=== PATIENT | female | born 1970 | race Caucasian/White ===

== ENCOUNTER 2017-03-31 09:38 | Inpatient (IN) ==
--- NOTE | 2017-03-31 09:47 | Emergency Department Note ---
Disposition Clinical Impression: UTI (urinary tract infection) Disposition: Admitted As Inpatient General Adult HPI - General Chief complaint: ED Urogenital-Female Stated complaint: UTI Time Seen by Provider: 03/31/17 09:44 Source: patient Limitations: no limitations - History of Present Illness Pain Scale: 6 - Related Data Home Medications Medication Instructions Recorded Confirmed Albuterol Sulfate [Albuterol 2 puff IH Q4HR PRN 06/11/16 03/31/17 Inhaler] Allopurinol [Zyloprim 100 MG] 100 mg PO DAILY 06/11/16 03/31/17 Aspirin 325 mg PO DAILY 06/11/16 03/31/17 Atorvastatin Calcium [Lipitor] 80 mg PO DAILY 06/11/16 03/31/17 Calcium Carbonate/Vitamin D3 1 tab PO BID 06/11/16 03/31/17 [Calcium 600 + Vit D Tablet] Ergocalciferol (VITAMIN D2) 50,000 unit PO TH 06/11/16 03/31/17 [Vitamin D2] Ferrous Sulfate [Iron] 325 mg PO DAILY 06/11/16 03/31/17 Furosemide [Lasix] 40 mg PO DAILY 06/11/16 03/31/17 Losartan Potassium [Cozaar] 25 mg PO BID 06/11/16 03/31/17 Metoprolol [Lopressor] 50 mg PO BID 06/11/16 03/31/17 Mycophenolate Sodium [Myfortic] 360 mg PO BID 06/11/16 03/31/17 Omeprazole [PriLOSEC] 40 mg PO BID 06/11/16 03/31/17 Ondansetron HCl [Zofran] 4 mg PO Q8H PRN 06/11/16 03/31/17 Potassium Chloride [K-Tab ER] 40 meq PO TID 06/11/16 03/31/17 Promethazine [Phenergan] 25 mg PO Q6HR PRN 06/11/16 03/31/17 metOLazone [Zaroxolyn] 2.5 mg PO DAILY PRN 06/11/16 03/31/17 Sulfamethoxazole/Trimeth DS 1 each PO MOWEFR 11/02/16 03/31/17 [Bactrim Ds] predniSONE [PredniSONE] 10 mg PO DAILY 11/02/16 03/31/17 Belatacept [Nulojix] 250 mg IV QMONTH 03/31/17 03/31/17 Docusate [Colace] 300 mg PO HS 03/31/17 03/31/17 Spironolactone [Aldactone] 25 mg PO DAILY 03/31/17 03/31/17 Previous Rx's Medication Instructions Recorded OxyCODONE Immed Rel [Roxicodone 5 5 mg PO Q6HR PRN #30 tablet 11/02/16 MG] Allergies Allergy/AdvReac Type Severity Reaction Status Date / Time adhesive Allergy Rash Verified 11/02/16 14:22 clopidogrel [From Plavix] Allergy Rash Verified 11/02/16 14:22 Iodinated Contrast- Oral and Allergy Rash,Hives Verified 11/02/16 14:22 IV Dye Penicillins Allergy Rash Verified 11/02/16 14:22 plasma protein fraction Allergy Swelling Verified 11/02/16 14:22 of Lip/Tongue/Throat chloraprep Allergy Hives Uncoded 11/02/16 14:22 Past Medical History - Past Medical History Medical history: Reports: GERD, hyperlipidemia, hypertension, renal disease Surgical history: Reports: cholecystectomy, orthopedic, other, other Psychiatric history: Reports: no psych history - Social History Smoking Status: Never smoker Smokeless Tobacco Status: No Alcohol use: Reports: none Drug use: Reports: none Physical Exam - General Limitations: no limitations General appearance: alert, in no apparent distress Course Vital Signs Temperature 98.9 F 03/31/17 09:39 Pulse Rate 80 03/31/17 09:39 Respiratory Rate 18 03/31/17 09:39 Blood Pressure 130/88 03/31/17 09:39 O2 Sat by Pulse Oximetry 96 03/31/17 09:39 Temperature 98.3 F 04/01/17 06:44 Pulse Rate 65 04/01/17 06:44 Respiratory Rate 14 04/01/17 06:44 Blood Pressure 139/87 04/01/17 06:44 O2 Sat by Pulse Oximetry 97 04/01/17 06:44 Oxygen Delivery Oxygen Delivery Room Air Medical Decision Making - Lab Data Result diagrams: 04/01/17 04:30 04/01/17 04:30 Lab Results 03/31/17 03/31/17 03/31/17 Range/Units 09:50 09:50 10:24 WBC 8.1 (4.3-11.1) K/mcL RBC 4.18 (3.82-4.97) M/mcL Hgb 11.9 (11.5-15.4) g/dL Hct 36.2 (35.3-44.9) % MCV 86.6 (83.0-100.0) fL MCH 28.5 (28.0-33.3) pg MCHC 32.9 (31.6-35.5) g/dL RDW 15.2 H (11.5-14.5) % Plt Count 168 (140-400) K/mcL MPV 11.2 (9.4-12.4) fL Immature Gran % 0.7 (0-4) % Seg Neutrophils % 80.5 % Lymphocytes % 8.9 % Monocytes % 8.6 % Eosinophils % 1.1 % Basophils % 0.2 % Neutrophils # 6.5 (1.6-8.9) K/mcL Lymphocytes # 0.7 (0.6-4.6) K/mcL Monocytes # 0.7 (0.0-1.3) K/mcL Eosinophils # 0.1 (0.0-0.6) K/mcL Basophils # 0.0 (0.0-0.2) K/mcL Immature Plt Fraction 4.2 (1.1-6.1) % Sodium (136-145) mEq/L Potassium (3.5-4.5) mEq/L Chloride (98-109) mEq/L Carbon Dioxide (19-29) mEq/L BUN (7-20) mg/dL Creatinine (0.57-1.11) mg/dL Est GFR ( Amer) (> 60) Est GFR (Non-Af Amer) (> 60) BUN/Creatinine Ratio (6-26) Glucose (70-99) mg/dL Calculated Osmolality (280-300) Calcium (8.6-10.8) mg/dL Urine Color Yellow (Yellow) Urine Clarity Turbid A (Clear) Urine pH 6.0 (5.0-8.0) pH Units Ur Specific [place] 1.014 (1.010-1.025) Urine Protein >=300 H (Neg-Trace) mg/dL Urine Glucose (UA) Normal (Normal) mg/dL Urine Ketones Negative (Negative) mg/dL Urine Blood Moderate H (Negative) Urine Nitrite Negative (Negative) Urine Bilirubin Negative (Negative) Urine Urobilinogen Normal (Normal) mg/dL Ur Leukocyte Esterase Large H (Negative) Urine Microscopic RBC 15-30 H (0-3) per hpf Urine Microscopic WBC TNTC H (0-3) per hpf Ur Squamous Epith Cells Moderate H (None-Few) per lpf Urine Bacteria Many H (None-Few) per hpf Hyaline Casts None Seen (None-Few) per lpf Ur Culture Indicated? YES A (NO) Urine Test Negative (Negative) 03/31/17 Range/Units 10:24 WBC (4.3-11.1) K/mcL RBC (3.82-4.97) M/mcL Hgb (11.5-15.4) g/dL Hct (35.3-44.9) % MCV (83.0-100.0) fL MCH (28.0-33.3) pg MCHC (31.6-35.5) g/dL RDW (11.5-14.5) % Plt Count (140-400) K/mcL MPV (9.4-12.4) fL Immature Gran % (0-4) % Seg Neutrophils % % Lymphocytes % % Monocytes % % Eosinophils % % Basophils % % Neutrophils # (1.6-8.9) K/mcL Lymphocytes # (0.6-4.6) K/mcL Monocytes # (0.0-1.3) K/mcL Eosinophils # (0.0-0.6) K/mcL Basophils # (0.0-0.2) K/mcL Immature Plt Fraction (1.1-6.1) % Sodium 140 (136-145) mEq/L Potassium 4.0 (3.5-4.5) mEq/L Chloride 110 H (98-109) mEq/L Carbon Dioxide 19 (19-29) mEq/L BUN 37 H (7-20) mg/dL Creatinine 2.45 H (0.57-1.11) mg/dL Est GFR ( Amer) 26 L (> 60) Est GFR (Non-Af Amer) 21 L (> 60) BUN/Creatinine Ratio 15 (6-26) Glucose 98 (70-99) mg/dL Calculated Osmolality 299 (280-300) Calcium 8.7 (8.6-10.8) mg/dL Urine Color (Yellow) Urine Clarity (Clear) Urine pH (5.0-8.0) pH Units Ur Specific [place] (1.010-1.025) Urine Protein (Neg-Trace) mg/dL Urine Glucose (UA) (Normal) mg/dL Urine Ketones (Negative) mg/dL Urine Blood (Negative) Urine Nitrite (Negative) Urine Bilirubin (Negative) Urine Urobilinogen (Normal) mg/dL Ur Leukocyte Esterase (Negative) Urine Microscopic RBC (0-3) per hpf Urine Microscopic WBC (0-3) per hpf Ur Squamous Epith Cells (None-Few) per lpf Urine Bacteria (None-Few) per hpf Hyaline Casts (None-Few) per lpf Ur Culture Indicated? (NO) Urine Test (Negative) Attestation Statement - Attestation Attestation: I examined this patient and my medical decision-making was reviewed with the FO[employer]IECE [employer]SEMBLER/PA/Advanced Practice Nurse/Resident Physician. I agree with the documented findings, disposition and treatment plan as described except to the extent set forth below. [id number] time provided Patient complains of urinary symptoms but appears in no acute distress on exam. Triage vitals reviewed by me. The patient has a remote history of kidney transplant
[2017-03-31 10:02] LABS: Bilirubin,Urine Negative (Negative); Blood,Urine Moderate (Negative); Clarity,Urine Turbid (Clear); Color,Urine Yellow (Yellow); Glucose,Urine (UA) Normal (Normal); Ketones,Urine Negative (Negative); Leukocyte Esterase,Urine Large (Negative); Nitrite,Urine Negative (Negative); Protein,Urine >=300 mg/dL (Neg-Trace); Specific Gravity,Urine 1.014 (1.010-1.025); Urobilinogen,Urine Normal (Normal)
[2017-03-31 10:05] LABS: Bacteria,Urine Many per hpf (None-Few); Hyaline Casts,Urine None Seen per lpf (None-Few); RBC,Urine 15-30 per hpf (0-3); Squamous Epithelial Cell,Urine Moderate per lpf (None-Few); WBC,Urine TNTC per hpf (0-3)
[2017-03-31] MEDS ORDERED: cefOXitin 2,000 MG in D5% in Water (Mini-Bag+) 100 ML IVPB ONE (10:16)
--- NOTE | 2017-03-31 10:24 | Emergency Department Note ---
Disposition Clinical Impression: UTI (urinary tract infection) Qualifiers: Urinary tract infection type: site unspecified Hematuria presence: with hematuria Qualified Code(s): N39.0 - Urinary tract infection, site not specified ; R31.9 - Hematuria, unspecified Disposition: Admitted As Inpatient Referrals: Lindsey Cazares MD [Primary Care Provider] - Forms: ED Satisfaction Letter Female Urogenital HPI - General Chief complaint: ED Urogenital-Female Stated complaint: UTI Time Seen by Provider: 03/31/17 09:44 Source: patient Limitations: no limitations Nursing Notes Reviewed: Yes Vital Signs Reviewed: Yes - History of Present Illness HPI Narrative: Patient here for evaluation and treatment of urinary tract infection. Patient is transferring a patient of Dr. Jackson at [facility] in 2012. Patient has had burning with urination since Sunday. No treatment until this point. Culture of ESBL with sensitivity to cefoxitin and Macrobid. Patient unable to take Macrobid outpatient as she has failed this multiple times. Patient needs cefoxitin therapy and is unable to get this set up as outpatient as this time. Pt does not have port and will need one at the time of discharge. - Related Data Home Medications Medication Instructions Recorded Confirmed Albuterol Sulfate [Albuterol 2 puff IH Q4HR PRN 06/11/16 11/02/16 Inhaler] Allopurinol [Zyloprim 100 MG] 100 mg PO DAILY 06/11/16 11/02/16 Aspirin 325 mg PO DAILY 06/11/16 11/02/16 Atorvastatin Calcium [Lipitor] 80 mg PO DAILY 06/11/16 11/02/16 Calcium Carbonate/Vitamin D3 1 each PO BID 06/11/16 11/02/16 [Calcium 600 + Vit D Tablet] Ergocalciferol (VITAMIN D2) 50,000 unit PO TH 06/11/16 11/02/16 [Vitamin D2] Ferrous Sulfate [Iron] 325 mg PO DAILY 06/11/16 11/02/16 Furosemide [Lasix] 40 mg PO DAILY 06/11/16 11/02/16 Losartan Potassium [Cozaar] 50 mg PO BID 06/11/16 11/02/16 Metoprolol [Lopressor] 37.5 mg PO BID 06/11/16 11/02/16 Mycophenolate Sodium [Myfortic] 360 mg PO BID 06/11/16 11/02/16 Omeprazole [PriLOSEC] 40 mg PO BID 06/11/16 11/02/16 Ondansetron HCl [Zofran] 4 mg PO Q8H PRN 06/11/16 11/02/16 Potassium Chloride [K-Tab ER] 40 meq PO TID 06/11/16 11/02/16 Promethazine [Phenergan] 25 mg PO Q6HR PRN 06/11/16 11/02/16 metOLazone [Zaroxolyn] 2.5 mg PO DAILY PRN 06/11/16 11/02/16 Aspirin 81 mg PO DAILY 11/02/16 11/02/16 Sulfamethoxazole/Trimeth DS 1 each PO MOWEFR 11/02/16 11/02/16 [Bactrim Ds] predniSONE [PredniSONE] 10 mg PO DAILY 11/02/16 11/02/16 Previous Rx's Medication Instructions Recorded Clindamycin [Cleocin] 150 mg PO Q6HR #8 capsule 11/02/16 OxyCODONE Immed Rel [Roxicodone 5 5 mg PO Q6HR PRN #30 tablet 11/02/16 MG] Allergies Allergy/AdvReac Type Severity Reaction Status Date / Time adhesive Allergy Rash Verified 11/02/16 14:22 clopidogrel [From Plavix] Allergy Rash Verified 11/02/16 14:22 Iodinated Contrast- Oral and Allergy Rash,Hives Verified 11/02/16 14:22 IV Dye Penicillins Allergy Rash Verified 11/02/16 14:22 plasma protein fraction Allergy Swelling Verified 11/02/16 14:22 of Lip/Tongue/Throat chloraprep Allergy Hives Uncoded 11/02/16 14:22 Review of Systems: CONSTITUTIONAL: No weight loss, fever, chills, weakness or fatigue. HEENT: Eyes: No visual changes. Ears, Nose, Throat: No hearing loss, difficulty talking or unable to swallow. SKIN: No rash or itching. CARDIOVASCULAR: No chest pain, chest pressure or chest discomfort. No palpitations or edema. RESPIRATORY: No shortness of breath, cough or sputum. GASTROINTESTINAL: No anorexia, nausea, vomiting or diarrhea. No abdominal pain or blood. GENITOURINARY: Burning with urination NEUROLOGICAL: No headache, dizziness, syncope, paralysis, ataxia, numbness or tingling in the extremities. No change in bowel or bladder control. MUSCULOSKELETAL: No muscle pain, back pain, joint pain or stiffness. Past Medical History - Past Medical History Medical history: Reports: GERD, hyperlipidemia, hypertension, renal disease Surgical history: Reports: cholecystectomy, orthopedic, other, other Psychiatric history: Reports: no psych history - Social History Smoking Status: Never smoker Smokeless Tobacco Status: No Alcohol use: Reports: none Drug use: Reports: none Physical Exam General appearance: NAD, conversant Eyes: anicteric sclerae, moist conjunctivae; PERRL HENT: Atraumatic; oropharynx clear with moist mucous membranes and no mucosal ulcerations Neck: Normal inspection; Trachea midline; FROM, supple Lungs: CTA, with normal respiratory effort and no intercostal retractions CV: RRR, no MRGs Abdomen: Soft, non-tender; no rebound or gaurding Extremities: No peripheral edema or extremity lymphadenopathy Skin: Normal temperature; no rash, ulcers or lesions Psych: Appropriate mood and affect Neuro: alert and oriented to person, place and time - General Limitations: no limitations General appearance: alert, in no apparent distress Course - Consultations Consultation #1: Discussed with Dr. Mccann. They called and said that she will need IV antibiotics. He does not have these faxed documents this time. States that he is more than comfortable keeping this patient Suni for these antibiotics she would otherwise have had this set up as an outpatient if it was feasible. Patient has failed Macrobid therapy in the past. Patient is supposed to get Invanz per transplant team. Transplant team is comfortable with her being treated at our facility. Dr. Mccann is comfortable taking care of her at this time. Hospitalist admission with consult. Vital Signs Temperature 98.9 F 03/31/17 09:39 Pulse Rate 80 03/31/17 09:39 Respiratory Rate 18 03/31/17 09:39 Blood Pressure 130/88 03/31/17 09:39 O2 Sat by Pulse Oximetry 96 03/31/17 09:39 Temperature 98.9 F 03/31/17 09:39 Pulse Rate 82 03/31/17 10:33 Respiratory Rate 16 03/31/17 10:33 Blood Pressure 110/68 03/31/17 10:33 O2 Sat by Pulse Oximetry 97 03/31/17 10:33 Oxygen Delivery Oxygen Delivery Room Air Urogenital-Female - Lab Data Result diagrams: 03/31/17 10:24 03/31/17 10:24 Lab Results 03/31/17 03/31/17 03/31/17 Range/Units 09:50 09:50 10:24 WBC 8.1 (4.3-11.1) K/mcL RBC 4.18 (3.82-4.97) M/mcL Hgb 11.9 (11.5-15.4) g/dL Hct 36.2 (35.3-44.9) % MCV 86.6 (83.0-100.0) fL MCH 28.5 (28.0-33.3) pg MCHC 32.9 (31.6-35.5) g/dL RDW 15.2 H (11.5-14.5) % Plt Count 168 (140-400) K/mcL MPV 11.2 (9.4-12.4) fL Immature Gran % 0.7 (0-4) % Seg Neutrophils % 80.5 % Lymphocytes % 8.9 % Monocytes % 8.6 % Eosinophils % 1.1 % Basophils % 0.2 % Neutrophils # 6.5 (1.6-8.9) K/mcL Lymphocytes # 0.7 (0.6-4.6) K/mcL Monocytes # 0.7 (0.0-1.3) K/mcL Eosinophils # 0.1 (0.0-0.6) K/mcL Basophils # 0.0 (0.0-0.2) K/mcL Immature Plt Fraction 4.2 (1.1-6.1) % Sodium (136-145) mEq/L Potassium (3.5-4.5) mEq/L Chloride (98-109) mEq/L Carbon Dioxide (19-29) mEq/L BUN (7-20) mg/dL Creatinine (0.57-1.11) mg/dL Est GFR ( Amer) (> 60) Est GFR (Non-Af Amer) (> 60) BUN/Creatinine Ratio (6-26) Glucose (70-99) mg/dL Calculated Osmolality (280-300) Calcium (8.6-10.8) mg/dL Urine Color Yellow (Yellow) Urine Clarity Turbid A (Clear) Urine pH 6.0 (5.0-8.0) pH Units Ur Specific [place] 1.014 (1.010-1.025) Urine Protein >=300 H (Neg-Trace) mg/dL Urine Glucose (UA) Normal (Normal) mg/dL Urine Ketones Negative (Negative) mg/dL Urine Blood Moderate H (Negative) Urine Nitrite Negative (Negative) Urine Bilirubin Negative (Negative) Urine Urobilinogen Normal (Normal) mg/dL Ur Leukocyte Esterase Large H (Negative) Urine Microscopic RBC 15-30 H (0-3) per hpf Urine Microscopic WBC TNTC H (0-3) per hpf Ur Squamous Epith Cells Moderate H (None-Few) per lpf Urine Bacteria Many H (None-Few) per hpf Hyaline Casts None Seen (None-Few) per lpf Ur Culture Indicated? YES A (NO) Urine Test Negative (Negative) 03/31/17 Range/Units 10:24 WBC (4.3-11.1) K/mcL RBC (3.82-4.97) M/mcL Hgb (11.5-15.4) g/dL Hct (35.3-44.9) % MCV (83.0-100.0) fL MCH (28.0-33.3) pg MCHC (31.6-35.5) g/dL RDW (11.5-14.5) % Plt Count (140-400) K/mcL MPV (9.4-12.4) fL Immature Gran % (0-4) % Seg Neutrophils % % Lymphocytes % % Monocytes % % Eosinophils % % Basophils % % Neutrophils # (1.6-8.9) K/mcL Lymphocytes # (0.6-4.6) K/mcL Monocytes # (0.0-1.3) K/mcL Eosinophils # (0.0-0.6) K/mcL Basophils # (0.0-0.2) K/mcL Immature Plt Fraction (1.1-6.1) % Sodium 140 (136-145) mEq/L Potassium 4.0 (3.5-4.5) mEq/L Chloride 110 H (98-109) mEq/L Carbon Dioxide 19 (19-29) mEq/L BUN 37 H (7-20) mg/dL Creatinine 2.45 H (0.57-1.11) mg/dL Est GFR ( Amer) 26 L (> 60) Est GFR (Non-Af Amer) 21 L (> 60) BUN/Creatinine Ratio 15 (6-26) Glucose 98 (70-99) mg/dL Calculated Osmolality 299 (280-300) Calcium 8.7 (8.6-10.8) mg/dL Urine Color (Yellow) Urine Clarity (Clear) Urine pH (5.0-8.0) pH Units Ur Specific [place] (1.010-1.025) Urine Protein (Neg-Trace) mg/dL Urine Glucose (UA) (Normal) mg/dL Urine Ketones (Negative) mg/dL Urine Blood (Negative) Urine Nitrite (Negative) Urine Bilirubin (Negative) Urine Urobilinogen (Normal) mg/dL Ur Leukocyte Esterase (Negative) Urine Microscopic RBC (0-3) per hpf Urine Microscopic WBC (0-3) per hpf Ur Squamous Epith Cells (None-Few) per lpf Urine Bacteria (None-Few) per hpf Hyaline Casts (None-Few) per lpf Ur Culture Indicated? (NO) Urine Test (Negative)
[2017-03-31 10:30] LABS: Basophils % 0.2 %; Eosinophils # 0.1 K/mcL (0.0-0.6); Eosinophils % 1.1 %; Hematocrit 36.2 % (35.3-44.9); Hemoglobin 11.9 g/dL (11.5-15.4); Immature Granulocytes % 0.7 % (0-4); Immature Platelets 4.2 % (1.1-6.1); Lymphocytes # 0.7 K/mcL (0.6-4.6); Lymphocytes % 8.9 %; Mean Corpuscular HGB Conc 32.9 g/dL (31.6-35.5); Mean Corpuscular Hemoglobin 28.5 pg (28.0-33.3); Mean Corpuscular Volume 86.6 fL (83.0-100.0); Mean Platelet Volume 11.2 fL (9.4-12.4); Monocytes # 0.7 K/mcL (0.0-1.3); Monocytes % 8.6 %; Neutrophils # 6.5 K/mcL (1.6-8.9); Platelet Count 168 K/mcL (140-400); Red Blood Count 4.18 M/mcL (3.82-4.97); Red Cell Distribution Width 15.2 % (11.5-14.5); Segmented Neutrophils % 80.5 %
[2017-03-31] MEDS ORDERED: Ertapenem 1,000 MG in 0.9 % Sodium Chloride Mini Bag 100 ML IVPB STA (10:41)
[2017-03-31 10:43] LABS: Calcium 8.7 mg/dL (8.6-10.8)
[2017-03-31] MEDS ORDERED: Acetaminophen 325 MG TABLET PO PRN (11:22)
[2017-03-31] MEDS ORDERED: Naloxone 0.4 MG/ML INJ IVP PRN (11:22)
--- NOTE | 2017-03-31 11:33 | Internal Med History&Physical ---
Date of Encounter: 03/31/17 Time of Encounter: 11:31 Assessment and Plan (1) UTI (urinary tract infection) Current visit: Yes Status: Acute Patient with dysuria starting last Sunday, along with fever, chills and body aches developing throughout the week. Culture taken a transplant Center at [facility] grew ESBL sensitive to Invanz. Her transplant center coordinated with Dr. Mccann her catalyst operator gasoline have her come here for IV Invanz to treat her UTI. Invanz IV piggyback 500 mg daily, dosed for kidney function with GFR less than 30. Plan to consult IR on Sunday for port placement so that she can receive IV antibiotics as an outpatient. Consult nephrology, Dr. Mccann. Qualifiers: Urinary tract infection type: site unspecified Hematuria presence: with hematuria Qualified Code(s): N39.0 - Urinary tract infection, site not specified; R31.9 - Hematuria, unspecified (2) Acute on chronic kidney failure Current visit: Yes Status: Acute Patient is status post living donor kidney transplant in 2013. Baseline kidney function appears to be a creatinine of approximately 1.8-1.9. Her creatinine has been creeping up recently and today's creatinine is above her previous value of 2.25. Patient reports her transplant center is aware of her increasing creatinine trend. Likely secondary to UTI, and possibly dehydration with elevated BUN as well and reports of nausea and poor appetite. Hold losartan and Lasix. Hydrate with 0.9 at 100 mL per hour. We will treat her UTI and check chemistry daily. 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 She follows closely at the transplant center at [facility], her transplant catalyst operator gasoline is Dr. Cerrato, her local catalyst operator gasoline is Dr. Mccann. Consult nephrology and Dr. Mccann. (4) Hypertension Current visit: Yes Status: Acute Patient's blood pressure has been well-controlled since arrival. Her holding losartan and Lasix due to concern for acute kidney failure. Continue to monitor blood pressures. Continue home doses of metoprolol and spironolactone. Qualifiers: Hypertension type: essential hypertension Qualified Code(s): I10 - Essential (primary) hypertension (5) Immunosuppressed status Current visit: Yes Status: Chronic Patient on immunosuppression to prevent kidney transplant ejection. She takes prednisone and Myfortic every day and gets Belatacept infusions monthly. She takes Bactrim Sunday as prophylaxis for opportunistic infections. Monitor CBC daily, continue home dose of Bactrim. (6) DVT prophylaxis Current visit: Yes Status: Acute Antiembolic stockings Heparin 5000 units subcutaneous 3 times a day Internal Medicine - H&P: HPI Chief complaint: UTI Admitted From: Emergency Dept Plans for Post Hospital Care: Home History of present illness: Ms. 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 Patient reports she has had frequent UTIs since her transplant, though she has not had one in a while. She started having symptoms last Sunday with pain and burning with urination, she subsequently developed fever and body aches. She was at the transplant center at [facility] this week for her monthly infusion of Belatacept and had labs drawn and a UA done at that time. The culture came back positive for ESBL sensitive to Invanz and Macrobid. However patient states that in the past Macrobid is not effective in treating her UTIs and she eventually needs IV antibiotics. The transplant center at [facility] coordinated with her local catalyst operator gasoline, Dr. Mccann to get her treated here with IV Invanz, with plan for port placement on Sunday so that she can get IV antibiotics as an outpatient. Patient reports mild nausea, poor appetite, headache, weak and achy. She denies chest pain, palpitations, shortness of breath. Evaluation in the emergency department showed she had a some acute on chronic kidney dysfunction with BUN elevated at 37, creatinine elevated at 2.45. WBC count was normal at 8.1. On exam, patient alert and oriented, in no acute distress, lungs are clear bilaterally to auscultation, heart has regular rate and rhythm. She has some mild tenderness over her right lower quadrant kidney transplant, and less so over her bladder. Past Med Surg Social Fam HX - Past Medical History Medical history: GERD, hyperlipidemia, hypertension, renal disease Psychiatric history: no psych history - Past Surgical History Surgical History: cholecystectomy, orthopedic, other, transplant (living donor kidney transplant 2012), other - Social History Smoking Status: Never smoker Smokeless Tobacco Status: No Alcohol use: none Drug use: none - Family History Mother Living Status: Still Living Hx Family Cardiac Disorders: Yes (htn) Father Living Status: Still Living Hx Family Cardiac Disorders: Yes (HTN) Hx Family Endocrine Disorder: Yes (diabetes) Internal Medicine - H&P: Meds Albuterol Sulfate [Albuterol Inhaler] 2 puff IH Q4HR PRN 06/11/16 [History] Allopurinol [Zyloprim 100 MG] 100 mg PO DAILY 06/11/16 [History] Aspirin 325 mg PO DAILY 06/11/16 [History] Atorvastatin Calcium [Lipitor] 80 mg PO DAILY 06/11/16 [History] Calcium Carbonate/Vitamin D3 [Calcium 600 + Vit D Tablet] 1 tab PO BID 06/11/16 [History] Ergocalciferol (VITAMIN D2) [Vitamin D2] 50,000 unit PO TH 06/11/16 [History] Ferrous Sulfate [Iron] 325 mg PO DAILY 06/11/16 [History] Furosemide [Lasix] 40 mg PO DAILY 06/11/16 [History] Losartan Potassium [Cozaar] 25 mg PO BID 06/11/16 [History] Metoprolol [Lopressor] 50 mg PO BID 06/11/16 [History] Mycophenolate Sodium [Myfortic] 360 mg PO BID 06/11/16 [History] Omeprazole [PriLOSEC] 40 mg PO BID 06/11/16 [History] Ondansetron HCl [Zofran] 4 mg PO Q8H PRN 06/11/16 [History] Potassium Chloride [K-Tab ER] 40 meq PO TID 06/11/16 [History] Promethazine [Phenergan] 25 mg PO Q6HR PRN 06/11/16 [History] metOLazone [Zaroxolyn] 2.5 mg PO DAILY PRN 06/11/16 [History] OxyCODONE Immed Rel [Roxicodone 5 MG] 5 mg PO Q6HR PRN #30 tablet 11/02/16 [Rx] Sulfamethoxazole/Trimeth DS [Bactrim Ds] 1 each PO MOWEFR 11/02/16 [History] predniSONE [PredniSONE] 10 mg PO DAILY 11/02/16 [History] Belatacept [Nulojix] 250 mg IV QMONTH 03/31/17 [History] Docusate [Colace] 300 mg PO HS 03/31/17 [History] Spironolactone [Aldactone] 25 mg PO DAILY 03/31/17 [History] Allergies adhesive Allergy (Verified 11/02/16 14:22) Rash clopidogrel [From Plavix] Allergy (Verified 11/02/16 14:22) Rash Iodinated Contrast- Oral and IV Dye Allergy (Verified 11/02/16 14:22) Rash,Hives Penicillins Allergy (Verified 11/02/16 14:22) Rash plasma protein fraction Allergy (Verified 11/02/16 14:22) Swelling of Lip/Tongue/Throat chloraprep Allergy (Uncoded 11/02/16 14:22) Hives All Systems PM: A 10-system review of systems was performed and is negative for pertinent findings except as documented above in the HPI. - Constitutional Constitutional: chills, fever(s), no night sweats - EENT Eyes: no change in vision, no discharge, no pain, no photophobia Ears: no ear discharge, no ear pain, no tinnitus Nose, mouth and throat: no dysphagia, no nasal discharge, no neck pain, no sore throat - Cardiovascular Cardiovascular ROS IM: no chest pain, no diaphoresis, no dyspnea, no lightheadedness, no palpitations, no syncope - Respiratory Respiratory: no cough, no dyspnea, no wheezing, no excessive phlegm production - Gastrointestinal Gastrointestinal: nausea, no abdominal pain, no diarrhea, no hematemesis, no hematochezia, no melena, no vomiting - Genitourinary Genitourinary: dysuria, no change in urinary stream, no flank pain, no hematuria - Musculoskeletal Musculoskeletal ROS IM: no numbness, no tingling - Integumentary Integumentary IM: no rash, no unusual bruising - Neurological Neurological ROS: no confusion, no convulsions, no focal weakness, no numbness, no tingling, no tremor(s) - Hematologic/Lymphatic Hematologic/Lymphatic: no easy bruising - Constitutional Vitals: Temp Pulse Resp BP Pulse Ox 98.9 F 82 18 104/78 97 03/31/17 09:39 03/31/17 10:33 03/31/17 11:15 03/31/17 11:15 03/31/17 10:33 General appearance: Present: A&O X 3, pleasant, no acute distress - Head Head exam: Present: atraumatic, normocephalic - Eye Eye exam: Present: PERRL, conjuntiva pink, sclera anicteric Pupils: Present: PERRL - Neck Neck exam general surgery: Present: supple, trachea midline. Absent: lymphadenopathy - Respiratory Respiratory exam: Present: CTAB. Absent: accessory muscle use, rales, rhonchi, wheezes - Cardiovascular Cardiovascular exam: Present: RRR, +S1, +S2. Absent: diastolic murmur, gallop, rubs, systolic murmur - GI/Abdominal GI/Abdominal exam: Present: normal bowel sounds, soft, tenderness (over RLQ kidney transplant and bladder), no peritoneal signs. Absent: distended - Extremities Exam Extremities exam: Present: warm, radial pulses palpable and symetrical. Absent : calf tenderness, cyanotic, pedal edema - Neurological Exam Neurological exam: Present: CN II-XII intact, oriented X3, no focal deficits. Absent: pronater drift, facial droop, speech deficit - Skin Skin exam: Present: dry, intact Internal Med - H&P Results - Labs CBC & Chem 7: 03/31/17 10:24 03/31/17 10:24 Labs: All Lab Results (24 Hours) 03/31/17 03/31/17 03/31/17 Range/Units 09:50 09:50 10:24 WBC 8.1 (4.3-11.1) K/mcL RBC 4.18 (3.82-4.97) M/mcL Hgb 11.9 (11.5-15.4) g/dL Hct 36.2 (35.3-44.9) % MCV 86.6 (83.0-100.0) fL MCH 28.5 (28.0-33.3) pg MCHC 32.9 (31.6-35.5) g/dL RDW 15.2 H (11.5-14.5) % Plt Count 168 (140-400) K/mcL MPV 11.2 (9.4-12.4) fL Immature Gran % 0.7 (0-4) % Seg Neutrophils % 80.5 % Lymphocytes % 8.9 % Monocytes % 8.6 % Eosinophils % 1.1 % Basophils % 0.2 % Neutrophils # 6.5 (1.6-8.9) K/mcL Lymphocytes # 0.7 (0.6-4.6) K/mcL Monocytes # 0.7 (0.0-1.3) K/mcL Eosinophils # 0.1 (0.0-0.6) K/mcL Basophils # 0.0 (0.0-0.2) K/mcL Immature Plt Fraction 4.2 (1.1-6.1) % Sodium (136-145) mEq/L Potassium (3.5-4.5) mEq/L Chloride (98-109) mEq/L Carbon Dioxide (19-29) mEq/L BUN (7-20) mg/dL Creatinine (0.57-1.11) mg/dL Est GFR ( Amer) (> 60) Est GFR (Non-Af Amer) (> 60) BUN/Creatinine Ratio (6-26) Glucose (70-99) mg/dL Calculated Osmolality (280-300) Calcium (8.6-10.8) mg/dL Urine Color Yellow (Yellow) Urine Clarity Turbid A (Clear) Urine pH 6.0 (5.0-8.0) pH Units Ur Specific [place] 1.014 (1.010-1.025) Urine Protein >=300 H (Neg-Trace) mg/dL Urine Glucose (UA) Normal (Normal) mg/dL Urine Ketones Negative (Negative) mg/dL Urine Blood Moderate H (Negative) Urine Nitrite Negative (Negative) Urine Bilirubin Negative (Negative) Urine Urobilinogen Normal (Normal) mg/dL Ur Leukocyte Esterase Large H (Negative) Urine Microscopic RBC 15-30 H (0-3) per hpf Urine Microscopic WBC TNTC H (0-3) per hpf Ur Squamous Epith Cells Moderate H (None-Few) per lpf Urine Bacteria Many H (None-Few) per hpf Hyaline Casts None Seen (None-Few) per lpf Ur Culture Indicated? YES A (NO) Urine Test Negative (Negative) 03/31/17 Range/Units 10:24 WBC (4.3-11.1) K/mcL RBC (3.82-4.97) M/mcL Hgb (11.5-15.4) g/dL Hct (35.3-44.9) % MCV (83.0-100.0) fL MCH (28.0-33.3) pg MCHC (31.6-35.5) g/dL RDW (11.5-14.5) % Plt Count (140-400) K/mcL MPV (9.4-12.4) fL Immature Gran % (0-4) % Seg Neutrophils % % Lymphocytes % % Monocytes % % Eosinophils % % Basophils % % Neutrophils # (1.6-8.9) K/mcL Lymphocytes # (0.6-4.6) K/mcL Monocytes # (0.0-1.3) K/mcL Eosinophils # (0.0-0.6) K/mcL Basophils # (0.0-0.2) K/mcL Immature Plt Fraction (1.1-6.1) % Sodium 140 (136-145) mEq/L Potassium 4.0 (3.5-4.5) mEq/L Chloride 110 H (98-109) mEq/L Carbon Dioxide 19 (19-29) mEq/L BUN 37 H (7-20) mg/dL Creatinine 2.45 H (0.57-1.11) mg/dL Est GFR ( Amer) 26 L (> 60) Est GFR (Non-Af Amer) 21 L (> 60) BUN/Creatinine Ratio 15 (6-26) Glucose 98 (70-99) mg/dL Calculated Osmolality 299 (280-300) Calcium 8.7 (8.6-10.8) mg/dL Urine Color (Yellow) Urine Clarity (Clear) Urine pH (5.0-8.0) pH Units Ur Specific [place] (1.010-1.025) Urine Protein (Neg-Trace) mg/dL Urine Glucose (UA) (Normal) mg/dL Urine Ketones (Negative) mg/dL Urine Blood (Negative) Urine Nitrite (Negative) Urine Bilirubin (Negative) Urine Urobilinogen (Normal) mg/dL Ur Leukocyte Esterase (Negative) Urine Microscopic RBC (0-3) per hpf Urine Microscopic WBC (0-3) per hpf Ur Squamous Epith Cells (None-Few) per lpf Urine Bacteria (None-Few) per hpf Hyaline Casts (None-Few) per lpf Ur Culture Indicated? (NO) Urine Test (Negative)
[2017-03-31] MEDS: 0.9 % Sodium Chloride 1,000 ML IVC SCH ×2 (12:17→21:21)
[2017-03-31] MEDS: Ondansetron ODT 4 MG TAB.RAPDIS SL PRN (12:17)
--- NOTE | 2017-03-31 12:37 | Nephrology Consult Note ---
Date of Encounter: 03/31/17 Time of Encounter: 12:30 Assessment and Plan (1) Acute on chronic kidney failure Current Visit: Yes Status: Acute Patient with MARINA on CKD. Her baseline appears to be1.8-2.0 and she is currently 2.4. Likely related to UTI/pyelonephritis and possibly decreased appetite. Agree with hydration and will treat her pyelonephritis. (2) Hypertension Current Visit: Yes Status: Acute Blood pressure controlled. Titrate medications as needed. Agree with holding Losartan and Lasix until renal function improves. Qualifiers: Hypertension type: essential hypertension Qualified Code(s): I10 - Essential (primary) hypertension (3) Kidney transplant recipient Current Visit: Yes Status: Acute Continue home medications. (4) UTI (urinary tract infection) Current Visit: Yes Status: Acute This is likely pyelonephritis based on her symptoms. She will need a 10 -14 day course of iv antibiotics. She will need a port placed hopefully sunday. Monitor for sepsis. Agree with [employer]. Qualifiers: Urinary tract infection type: site unspecified Hematuria presence: with hematuria Qualified Code(s): N39.0 - Urinary tract infection, site not specified; R31.9 - Hematuria, unspecified History of Present Illness - Reason for Consult Consult date: 03/31/17 Chronic Kidney Disease - Chief Complaint UTI - History of Present Illness Mrs. Maurer is a 46 yo woman with a history of CKD stage 4 and s/p renal transplant who is followed by Dr. Bruce. She presents for IV antibiotics secondary to a UTI vs pyelonephritis with ESBL E. coli. She states she has had some chills and nausea along with slight discomfort over the transplanted kidney. Her review of systems otherwise is stable or negative. Past Med Surg Social Fam HX - Past Medical History Medical history: GERD, hyperlipidemia, hypertension, renal disease Psychiatric history: no psych history - Past Surgical History Surgical History: cholecystectomy, orthopedic, other, transplant, other - Social History Smoking Status: Never smoker Smokeless Tobacco Status: No Alcohol use: none Drug use: none - Family History Father Living Status: Still Living Hx Family Cardiac Disorders: Yes (HTN) Hx Family Endocrine Disorder: Yes (diabetes) Mother Living Status: Still Living Hx Family Cardiac Disorders: Yes (htn) Medications and Allergies Albuterol Sulfate [Albuterol Inhaler] 2 puff IH Q4HR PRN 06/11/16 [History] Allopurinol [Zyloprim 100 MG] 100 mg PO DAILY 06/11/16 [History] Aspirin 325 mg PO DAILY 06/11/16 [History] Atorvastatin Calcium [Lipitor] 80 mg PO DAILY 06/11/16 [History] Calcium Carbonate/Vitamin D3 [Calcium 600 + Vit D Tablet] 1 tab PO BID 06/11/16 [History] Ergocalciferol (VITAMIN D2) [Vitamin D2] 50,000 unit PO TH 06/11/16 [History] Ferrous Sulfate [Iron] 325 mg PO DAILY 06/11/16 [History] Furosemide [Lasix] 40 mg PO DAILY 06/11/16 [History] Losartan Potassium [Cozaar] 25 mg PO BID 06/11/16 [History] Metoprolol [Lopressor] 50 mg PO BID 06/11/16 [History] Mycophenolate Sodium [Myfortic] 360 mg PO BID 06/11/16 [History] Omeprazole [PriLOSEC] 40 mg PO BID 06/11/16 [History] Ondansetron HCl [Zofran] 4 mg PO Q8H PRN 06/11/16 [History] Potassium Chloride [K-Tab ER] 40 meq PO TID 06/11/16 [History] Promethazine [Phenergan] 25 mg PO Q6HR PRN 06/11/16 [History] metOLazone [Zaroxolyn] 2.5 mg PO DAILY PRN 06/11/16 [History] OxyCODONE Immed Rel [Roxicodone 5 MG] 5 mg PO Q6HR PRN #30 tablet 11/02/16 [Rx] Sulfamethoxazole/Trimeth DS [Bactrim Ds] 1 each PO MOWEFR 11/02/16 [History] predniSONE [PredniSONE] 10 mg PO DAILY 11/02/16 [History] Belatacept [Nulojix] 250 mg IV QMONTH 03/31/17 [History] Docusate [Colace] 300 mg PO HS 03/31/17 [History] Spironolactone [Aldactone] 25 mg PO DAILY 03/31/17 [History] Allergies adhesive Allergy (Verified 11/02/16 14:22) Rash clopidogrel [From Plavix] Allergy (Verified 11/02/16 14:22) Rash Iodinated Contrast- Oral and IV Dye Allergy (Verified 11/02/16 14:22) Rash,Hives Penicillins Allergy (Verified 11/02/16 14:22) Rash plasma protein fraction Allergy (Verified 11/02/16 14:22) Swelling of Lip/Tongue/Throat chloraprep Allergy (Uncoded 11/02/16 14:22) Hives Review of Systems All Systems: reviewed and no additional remarkable complaints except as stated ( as documented in the HPI.) Exam - Vital Signs Vital signs: Initial Vital Signs Temp Pulse Resp BP Pulse Ox 98.9 F 80 18 130/88 96 03/31/17 09:39 03/31/17 09:39 03/31/17 09:39 03/31/17 09:39 03/31/17 09:39 Vital Signs - Last 8 Hours Temp Pulse Resp BP Pulse Ox 03/31/17 11:35 99 F 70 16 113/75 94 Intake and Output 03/30/17 03/31/17 03/31/17 23:59 07:59 15:59 Other: Weight 102.569 kg Patient Weight 03/31/17 23:59 Weight 102.569 kg - General Appearance General appearance: well-developed, well-nourished, obese EENT: ATNC Neck: supple Respiratory: clear Cardiology: no edema, regular rate, regular rhythm Gastrointestinal: normoactive bowel sounds Additional Comments: Right lower quadrant over the transplanted kidney has minimal discomfort with palpitation. Integumentary: warm and dry Neurologic: alert and oriented x3 Musculoskeletal: no cyanosis Psychiatric: mood/affect appropriate Results - Lab Results 03/31/17 10:24 03/31/17 10:24 Most recent lab results Calcium 8.7 mg/dL (8.6-10.8) 03/31/17 10:24 Consult Discharge Plan - Plan Referrals: Lindsey Cazares MD [Primary Care Provider] -
[2017-03-31] MEDS: *HR* Heparin 5,000 UNIT/ML VIAL SQ SCH (16:33)
[2017-03-31] MEDS: *HR* OxyCODONE Immed Rel 5 MG TABLET PO PRN (22:14)
[2017-03-31] MEDS: Mycophenolate Sodium (DR) 180 MG TABLET.DR PO SCH (22:15)
[2017-04-01] MEDS: *HR* Heparin 5,000 UNIT/ML VIAL SQ SCH ×4 (00:10→23:43)
[2017-04-01 04:58] LABS: Basophils % 0.5 %; Eosinophils # 0.1 K/mcL (0.0-0.6); Eosinophils % 1.5 %; Hematocrit 34.5 % (35.3-44.9); Lymphocytes # 1.3 K/mcL (0.6-4.6); Lymphocytes % 22.6 %; Mean Corpuscular HGB Conc 31.9 g/dL (31.6-35.5); Mean Corpuscular Hemoglobin 29.1 pg (28.0-33.3); Mean Corpuscular Volume 91.3 fL (83.0-100.0); Mean Platelet Volume 11.4 fL (9.4-12.4); Monocytes # 0.7 K/mcL (0.0-1.3); Monocytes % 11.6 %; Neutrophils # 3.7 K/mcL (1.6-8.9); Platelet Count 160 K/mcL (140-400); Red Blood Count 3.78 M/mcL (3.82-4.97); Red Cell Distribution Width 15.4 % (11.5-14.5); Segmented Neutrophils % 62.8 %
[2017-04-01 05:01] LABS: INR 1.1; Prothrombin Time 11.7 Seconds (9.4-12.1)
[2017-04-01 05:04] LABS: Activated Partial Thrombo Time 26.7 Seconds (26.0-36.0)
[2017-04-01 05:15] LABS: Calcium 7.7 mg/dL (8.6-10.8); Potassium 4.2 mEq/L (3.5-4.5)
[2017-04-01] MEDS: 0.9 % Sodium Chloride 1,000 ML IVC SCH (06:12)
[2017-04-01] MEDS: Ondansetron ODT 4 MG TAB.RAPDIS SL PRN (06:23)
[2017-04-01] MEDS ORDERED: Spironolactone 25 MG TABLET PO SCH (09:00)
[2017-04-01] MEDS ORDERED: *HR* Promethazine 25 MG/ML VIAL IVP PRN (09:02)
--- NOTE | 2017-04-01 09:06 | Internal Med Progress Note ---
Date of Encounter: 04/01/17 Time of Encounter: 08:30 - Assessment and plan (1) UTI (urinary tract infection) Current Visit: Yes Status: Acute Assessment and plan: Improving clinically. Urine culture from 03/27/2017 grows ESBL Escherichia coli and patient has not been on antibiotics as outpatient. Preliminary urine culture from admission grows gram-negative rods. Continue IV ertapenem. Plan for IR guided IV port placement tomorrow. learning support services director consult for home IV antibiotic infusion. Supportive care with when necessary antiemetics. Qualifiers: Urinary tract infection type: site unspecified Hematuria presence: without hematuria Qualified Code(s): N39.0 - Urinary tract infection, site not specified (2) Kidney transplant recipient Current Visit: Yes Status: Chronic Assessment and plan: Patient follows with transplant nephrology at [facility] in [place]. Continue prednisone and mycophenolate. (3) Acute on chronic kidney failure Current Visit: Yes Status: Acute Assessment and plan: Serum creatinine noted to be trending down to baseline. Nephrology follow-up appreciated. Patient has been started on IV bicarbonate drip, continue to monitor serum creatinine and bicarbonate. Continue to hold diuretics and ARB for now. (4) Hypertension Current Visit: Yes Status: Chronic Qualifiers: Hypertension type: essential hypertension Qualified Code(s): I10 - Essential (primary) hypertension - Subjective Interval history: Feels better but reports persistent nausea, only partly relieved by Zofran. No emesis, abdominal pain. Also reports right eye redness associated with gritty feeling; no swelling/blurred vision. - Constitutional Vitals: Temp Pulse Resp BP Pulse Ox 98.3 F 65 14 139/87 97 04/01/17 06:44 04/01/17 06:44 04/01/17 06:44 04/01/17 06:44 04/01/17 06:44 General appearance: Present: A&O X 3, obese, answers questions appropriately - Respiratory Respiratory exam: Present: CTAB. Absent: accessory muscle use, rales, rhonchi, wheezes - Cardiovascular Cardiovascular exam: Present: RRR, +S1, +S2. Absent: diastolic murmur, gallop, rubs, systolic murmur - GI/Abdominal GI/Abdominal exam: Present: normal bowel sounds, soft, no peritoneal signs. Absent: distended, tenderness Internal Medicine: Result - Labs CBC & Chem 7: 04/01/17 04:30 04/01/17 04:30 Labs: Short CBC 04/01/17 Range/Units 04:30 WBC 5.9 (4.3-11.1) K/mcL Hgb 11.0 L (11.5-15.4) g/dL Hct 34.5 L (35.3-44.9) % Plt Count 160 (140-400) K/mcL Neutrophils # 3.7 (1.6-8.9) K/mcL BMP 04/01/17 04:30 Sodium 141 Potassium 4.2 Chloride 115 H Carbon Dioxide 18 L BUN 34 H Creatinine 2.09 H Glucose 100 H Calcium 7.7 L - ABG Interpretation ABG results: PT/INR, D-dimer PT 11.7 Seconds (9.4-12.1) 04/01/17 04:30 Consult Discharge Plan - Plan Referrals: Lindsey Cazares MD [Primary Care Provider] -
[2017-04-01] MEDS: Aspirin 325 MG TABLET PO SCH (09:32)
[2017-04-01] MEDS: predniSONE 10 MG TABLET PO SCH (09:32)
[2017-04-01] MEDS: Mycophenolate Sodium (DR) 180 MG TABLET.DR PO SCH ×2 (09:32→20:14)
[2017-04-01] MEDS: *HR* OxyCODONE Immed Rel 5 MG TABLET PO PRN (10:55)
[2017-04-01] MEDS: Artificial Tears SOLN 15 ML BOTTLE RIGHT EYE SCH ×4 (10:56→20:12)
[2017-04-01] MEDS ORDERED: Sodium Bicarbonate 75 MEQ in 0.45 % Sodium Chloride 1,000 ML IVC SCH ×2 (12:00→22:00)
--- NOTE | 2017-04-01 12:05 | Nephrology Progress Note ---
Date of Encounter: 04/01/17 Time of Encounter: 12:01 - Assessment and Plan (1) Acute on chronic kidney failure Current Visit: Yes Status: Acute Renal function improving with hydration. Will continue MIV. (2) Hypertension Current Visit: Yes Status: Acute Blood pressure stable. Monitor. May be able to add back ARB if renal function continues to improve. Qualifiers: Hypertension type: essential hypertension Qualified Code(s): I10 - Essential (primary) hypertension (3) Kidney transplant recipient Current Visit: Yes Status: Acute Continue home medications. (4) UTI (urinary tract infection) Current Visit: Yes Status: Acute Clinically this is pyelonephritis. Continue IV antibiotics. Mild improvement. Qualifiers: Urinary tract infection type: site unspecified Hematuria presence: with hematuria Qualified Code(s): N39.0 - Urinary tract infection, site not specified; R31.9 - Hematuria, unspecified (5) Hypocalcemia Current Visit: Yes Status: Acute Check ionized calcium and vitamin D and PTH. (6) Metabolic acidosis Current Visit: Yes Status: Acute Supplemental bicarb IV. Subjective Principal diagnosis: MARINA Pyelonephritis Interval history: Patient seen and evaluated. No new complaint. She has decreasing discomfort over her transplanted kidney and feels slightly better. Objective - Vital Signs Vital signs: Vital Signs Temp Pulse Resp BP Pulse Ox 04/01/17 10:46 99 F 66 14 116/79 94 04/01/17 06:44 98.3 F 65 14 139/87 97 04/01/17 04:15 97.5 F L 64 12 118/77 97 03/31/17 23:01 98.0 F 70 14 119/76 97 03/31/17 20:16 97.9 F 62 14 122/79 94 03/31/17 15:35 98.7 F 66 16 116/77 93 Intake and Output 03/31/17 04/01/17 04/01/17 23:59 07:59 15:59 Intake Total 1500 / 1500 1570 / 1570 360 / 360 Output Total 400 / 400 500 / 500 Balance 1100 / 1100 1070 / 1070 360 / 360 Intake: IV Fluids 1000 / 1000 1000 / 1000 0.9 % Sodium Chloride 1, 1000 / 1000 1000 / 1000 000 ML @ 100 mls/hr IVC . Q10H STACY Rx#:[id number] Oral 500 / 500 570 / 570 360 / 360 Output: Urine 400 / 400 500 / 500 Other: Meal Breakfast Percent of Meal Consumed 100% # Voids 1 1 Weight 104.4 kg Patient Weight 04/01/17 23:59 Weight 104.4 kg - General Appearance General appearance: Present: well-developed, well-nourished EENT: Present: ATNC Neck: Present: supple Additional Comments: respirations are unlabored. Cardiology: Present: edema (trace), regular rate Integumentary: Present: warm and dry Neurologic: Present: alert and oriented x3 Psychiatric: Present: mood/affect appropriate - Lab 04/01/17 04:30 04/01/17 04:30 Most recent lab results Calcium 7.7 mg/dL (8.6-10.8) L 04/01/17 04:30 Consult Discharge Plan - Plan Referrals: Lindsey Cazares MD [Primary Care Provider] -
[2017-04-02 06:25] LABS: Ionized Calcium 1.17 mmol/L (1.15-1.35)
[2017-04-02 06:29] LABS: Phosphorous 3.7 mg/dL (2.3-4.7); Potassium 3.8 mEq/L (3.5-4.5)
[2017-04-02 07:06] LABS: Folate 9.9 ng/mL (7.0-31.4)
[2017-04-02 08:01] VITALS: BP 155/88
[2017-04-02] MEDS ORDERED: Ertapenem 1,000 MG in 0.9 % Sodium Chloride Mini Bag 100 ML IVPB SCH (09:00)
[2017-04-02] MEDS ORDERED: Sulfamethoxazole/Trimeth DS 1 EACH TABLET PO SCH (09:00)
[2017-04-02] MEDS: Aspirin 325 MG TABLET PO SCH (09:10)
[2017-04-02] MEDS: *HR* Heparin 5,000 UNIT/ML VIAL SQ SCH (09:11)
[2017-04-02] MEDS: predniSONE 10 MG TABLET PO SCH (09:11)
[2017-04-02] MEDS: Mycophenolate Sodium (DR) 180 MG TABLET.DR PO SCH (09:11)
[2017-04-02] MEDS: Artificial Tears SOLN 15 ML BOTTLE RIGHT EYE SCH (09:12)
--- NOTE | 2017-04-02 09:46 | Nephrology Progress Note ---
Date of Encounter: 04/02/17 Time of Encounter: 08:55 - Assessment and Plan (1) UTI (urinary tract infection) Current Visit: Yes Status: Acute Recurrent UTIs and the latest was an ESBL, requiring home IV antibiotics. I recommend avoid PICC lines, and therefore it would be mojica to avoid any lines that could increase the risk of central venous stenosis. A feasible option is placing a tunneled CVC in the IJ (instead of the subclavian ). No recent bacteremia, just UTI. She is on I/S meds for the Living unrelated renal transplant in 2012 (Myfortic 360mg bid and Pred 10mg daily plus monthly belatacept). MARINA was nonoliguric and improving closer to her baseline CKD stage IV. Time to restart home Rx (ARB and low dose loop plus spironolactone). Check BMP in 1 week after d/c (cc: Dr. Holden, the pt's primary radiator specialist). Discussed with the hospitalist. Qualifiers: Urinary tract infection type: site unspecified Hematuria presence: without hematuria Qualified Code(s): N39.0 - Urinary tract infection, site not specified (2) MARINA (acute kidney injury) Current Visit: Yes Status: Acute (3) CKD (chronic kidney disease), stage IV Current Visit: Yes Status: Acute (4) Hypertension Current Visit: Yes Status: Chronic Qualifiers: Hypertension type: essential hypertension Qualified Code(s): I10 - Essential (primary) hypertension (5) Immunosuppressed status Current Visit: Yes Status: Chronic (6) Kidney transplant recipient Current Visit: Yes Status: Chronic Subjective Principal diagnosis: MARINA Pyelonephritis Interval history: Pt was s/e this AM. She did not affirm N/V/D. She affirmed minimal RLQ pain ( overlying the renal transplant). She said that she's previously had tunneled CVCs for IV antibiotics. Recently underwent a transplant renal biopsy about " two weeks ago," she said, and it revealed "FSGS", as per the patient. She has not had any breakfast this AM, yet she reported. Objective - Vital Signs Vital signs: Vital Signs Temp Pulse Resp BP Pulse Ox 04/02/17 07:59 98.8 F 69 17 155/88 93 04/02/17 04:22 98.5 F 62 18 126/85 91 04/01/17 23:46 97.3 F L 63 16 123/79 95 04/01/17 20:21 98 04/01/17 19:26 98.9 F 65 16 147/89 95 04/01/17 15:23 98.6 F 73 14 133/86 93 04/01/17 10:46 99 F 66 14 116/79 94 Intake and Output 04/01/17 04/02/17 04/02/17 23:59 07:59 15:59 Intake Total 1307 / 1307 1075 / 1075 Output Total 1999 900 / 900 Balance -693 / -693 175 / 175 Intake: IV Fluids 1075 / 1075 Sodium Bicarbonate 75 MEQ 1075 / 1075 In 0.45% Sodium Chloride 1000 Ml 1000 Ml 1,000 ML @ 75 mls/hr IVC .[id number] STACY Rx#:[id number] Oral 1307 / 1307 Output: Urine 1999 900 / 900 Other: Meal Dinner NPO Percent of Meal Consumed 50% Weight 106 kg Patient Weight 04/02/17 23:59 Weight 106 kg - General Appearance General appearance: Present: well-developed, well-nourished, appears started age EENT: Present: ATNC, PERRL, mucous membranes moist Neck: Present: supple Respiratory: Present: clear Cardiology: Present: no murmurs, edema (trace LE pedal edema b/l), regular rate , normal S1, normal S2 Dialysis Vascular Access: Arteriovenous Fistula (RUE AVF with excellent thrill/ bruit) thrill: Yes bruit: Yes Gastrointestinal: Present: normoactive bowel sounds, no guarding Integumentary: Present: no rash, warm and dry Neurologic: Present: no focal deficit, no asterixis, alert and oriented x3 Musculoskeletal: Present: no deformities, no erythema, no cyanosis Psychiatric: Present: mood/affect appropriate, cooperative - Lab 04/01/17 04:30 04/02/17 05:54 Most recent lab results Calcium 8.0 mg/dL (8.6-10.8) L 04/02/17 05:54 Phosphorus 3.7 mg/dL (2.3-4.7) 04/02/17 05:54 Consult Discharge Plan - Plan Referrals: Lindsey Cazares MD [Primary Care Provider] - 04/06/17 2:00 pm (Please follow up as schedule..)
[2017-04-02] MEDS ORDERED: Heparin 1,000 UNITS/500 mL NS 500 ML ONE (11:26)
--- NOTE | 2017-04-02 14:18 | IR Procedure Note ---
Date of procedure: 04/02/17 Consent Obtained: Written consent Timeout: Correct patient and procedure verified, Correct site verified, Time out performed, Skin prep completed Indications: needs iv antibiotics Procedure Performed: tunneled picc Site/Technique: lt IJ access Results/Findings: tip in RA Estimated blood loss (cc): 8 Complications: None; Tolerated procedure well Post Procedure Treatment Plan: ok to use line
--- NOTE | 2017-04-02 15:18 | Discharge Summary ---
Date of Encounter: 04/02/17 Time of Encounter: 09:00 - Discharge Diagnosis (1) UTI (urinary tract infection) Priority: Primary Status: Acute Qualifiers: Urinary tract infection type: site unspecified Hematuria presence: without hematuria Qualified Code(s): N39.0 - Urinary tract infection, site not specified (2) Kidney transplant recipient Priority: Secondary Status: Chronic (3) Acute on chronic kidney failure Priority: Primary Status: Acute (4) Hypertension Priority: Secondary Status: Chronic Qualifiers: Hypertension type: essential hypertension Qualified Code(s): I10 - Essential (primary) hypertension - Discharge Medications Home Medications: Albuterol Sulfate [Albuterol Inhaler] 2 puff IH Q4HR PRN 06/11/16 [History] Allopurinol [Zyloprim 100 MG] 100 mg PO DAILY 06/11/16 [History] Aspirin 325 mg PO DAILY 06/11/16 [History] Atorvastatin Calcium [Lipitor] 80 mg PO DAILY 06/11/16 [History] Calcium Carbonate/Vitamin D3 [Calcium 600 + Vit D Tablet] 1 tab PO BID 06/11/16 [History] Ergocalciferol (VITAMIN D2) [Vitamin D2] 50,000 unit PO TH 06/11/16 [History] Ferrous Sulfate [Iron] 325 mg PO DAILY 06/11/16 [History] Furosemide [Lasix] 40 mg PO DAILY 06/11/16 [History] Losartan Potassium [Cozaar] 25 mg PO BID 06/11/16 [History] Metoprolol [Lopressor] 50 mg PO BID 06/11/16 [History] Mycophenolate Sodium [Myfortic] 360 mg PO BID 06/11/16 [History] Omeprazole [PriLOSEC] 40 mg PO BID 06/11/16 [History] Ondansetron HCl [Zofran] 4 mg PO Q8H PRN 06/11/16 [History] Potassium Chloride [K-Tab ER] 40 meq PO TID 06/11/16 [History] Promethazine [Phenergan] 25 mg PO Q6HR PRN 06/11/16 [History] metOLazone [Zaroxolyn] 2.5 mg PO DAILY PRN 06/11/16 [History] OxyCODONE Immed Rel [Roxicodone 5 MG] 5 mg PO Q6HR PRN #30 tablet 11/02/16 [Rx] Sulfamethoxazole/Trimeth DS [Bactrim Ds] 1 each PO MOWEFR 11/02/16 [History] predniSONE [PredniSONE] 10 mg PO DAILY 11/02/16 [History] Belatacept [Nulojix] 250 mg IV QMONTH 03/31/17 [History] Docusate [Colace] 300 mg PO HS 03/31/17 [History] Spironolactone [Aldactone] 25 mg PO DAILY 03/31/17 [History] Allergies/Adverse Reactions: Allergies adhesive Allergy (Verified 11/02/16 14:22) Rash clopidogrel [From Plavix] Allergy (Verified 11/02/16 14:22) Rash Iodinated Contrast- Oral and IV Dye Allergy (Verified 11/02/16 14:22) Rash,Hives Penicillins Allergy (Verified 11/02/16 14:22) Rash plasma protein fraction Allergy (Verified 11/02/16 14:22) Swelling of Lip/Tongue/Throat chloraprep Allergy (Uncoded 11/02/16 14:22) Hives Procedures/tests Complete & Pending: Procedures Performed prior 72 hours Category Date Time Status IR cvc insrt tunnel wo prt/oil processing technician [IR] Routine IR 04/02/17 Completed IR us guide needle place [IR] Routine IR 04/02/17 Completed Date of admission: 03/31/17 11:22 Primary care physician: Lindsey Cazares, Consults: 03/31/17 12:22 Consult to Nephrology [CONS] Routine Consulting Provider: Kidney Melia/WENDY/YUMIKO/CLARITA Reason for Consult: 46F with history of Kidney transplant 2012, here with UTI , patient of dr. Mccann Call Completed: Yes 04/01/17 08:17 Consult to Data Analyst Report Writer [CONS] Routine Reason for SW Consult: Home IV antibiotics for 2 weeks 04/01/17 11:51 Consult to Interventional Radiology [CONS] Routine Consulting Provider: Radiology Interventional Cols Reason for Consult: consult for a tunneled CVC for iv antibiotics. Call Completed: No Discharging clinician: Bere Dickerson Anticipated date of discharge: 04/02/17 - Patient Status Disposition: Home Health Service Condition: Good Functional capacity at discharge: independent ambulation Overall status at discharge: patient is progressing back to baseline - Discharge Instructions Instructions: Urinary Tract Infection in Women (DC), Chronic Hypertension (DC) Follow Up With: Lindsey Cazares MD [Primary Care Provider] - 04/06/17 2:00 pm (Please follow up as schedule..) Additional Instructions: F/up with Nephrology and Transplant Nephrology as scheduled Renal function panel in 1 week - Diet and Activity Activity: resume usual activities as tolerated Diet: low fat, low cholesterol, low salt diet, other (renal diet) Hospital course: Ms. 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 Her urine culture as an outpatient and in the hospital has shown ESBL-E.coli and she has been started on IV Ertapenem, which she tolerated well and her symptoms gradually improved. No documented fever, hypotension, lactic acidosis while in the hospital. She received a tunneled CVC by IR, and HHS have been arranged for home antibiotic infusion. SHe is currently medically stable for discharge with outpatient followup to complete a 14-day course of IV Ertapenem. She is advised to have her labs checked in a week to monitor renal function and adjust antibiotic dosing as needed. - Time Spent with Patient Total time spent providing and/or coordinating discharge services: Greater than 30 minutes (55 min) - Constitutional Vitals: Temp Pulse Resp BP Pulse Ox 98.8 F 69 17 155/88 93 04/02/17 07:59 04/02/17 07:59 04/02/17 07:59 04/02/17 07:59 04/02/17 09:15 General appearance: Present: A&O X 3, obese, answers questions appropriately - Respiratory Respiratory exam: Present: CTAB. Absent: accessory muscle use, rales, rhonchi, wheezes - Cardiovascular Cardiovascular exam: Present: RRR, +S1, +S2. Absent: diastolic murmur, gallop, rubs, systolic murmur
--- NOTE | 2017-04-02 15:21 | Physician Discharge Referral ---
Home Health/Hosp Referral Info Transfer to: Home Health Attending Provider: Bere Dickerson Provider in Charge Post Discharge: PCP - Diagnosis (1) UTI (urinary tract infection) Priority: Primary Status: Acute (2) Kidney transplant recipient Priority: Secondary Status: Chronic (3) Acute on chronic kidney failure Priority: Primary Status: Acute (4) Hypertension Priority: Secondary Status: Chronic - Respiratory Orders Smoking Cessation: Smoking cessation has been advised. For more information, call the [place] Tobacco Quit Line at 7-244-FFHL-NOW. - Diet/Nutrition Diet/Nutrition Orders: Renal, Cardiac - Activity Activity Orders: Ambulate - Services Needed Following services are medically necessary services: Nursing, Home Infusion - Transfer Medications Home Medications: Albuterol Sulfate [Albuterol Inhaler] 2 puff IH Q4HR PRN 06/11/16 [History] Allopurinol [Zyloprim 100 MG] 100 mg PO DAILY 06/11/16 [History] Aspirin 325 mg PO DAILY 06/11/16 [History] Atorvastatin Calcium [Lipitor] 80 mg PO DAILY 06/11/16 [History] Calcium Carbonate/Vitamin D3 [Calcium 600 + Vit D Tablet] 1 tab PO BID 06/11/16 [History] Ergocalciferol (VITAMIN D2) [Vitamin D2] 50,000 unit PO TH 06/11/16 [History] Ferrous Sulfate [Iron] 325 mg PO DAILY 06/11/16 [History] Furosemide [Lasix] 40 mg PO DAILY 06/11/16 [History] Losartan Potassium [Cozaar] 25 mg PO BID 06/11/16 [History] Metoprolol [Lopressor] 50 mg PO BID 06/11/16 [History] Mycophenolate Sodium [Myfortic] 360 mg PO BID 06/11/16 [History] Omeprazole [PriLOSEC] 40 mg PO BID 06/11/16 [History] Ondansetron HCl [Zofran] 4 mg PO Q8H PRN 06/11/16 [History] Potassium Chloride [K-Tab ER] 40 meq PO TID 06/11/16 [History] Promethazine [Phenergan] 25 mg PO Q6HR PRN 06/11/16 [History] metOLazone [Zaroxolyn] 2.5 mg PO DAILY PRN 06/11/16 [History] OxyCODONE Immed Rel [Roxicodone 5 MG] 5 mg PO Q6HR PRN #30 tablet 11/02/16 [Rx] Sulfamethoxazole/Trimeth DS [Bactrim Ds] 1 each PO MOWEFR 11/02/16 [History] predniSONE [PredniSONE] 10 mg PO DAILY 11/02/16 [History] Belatacept [Nulojix] 250 mg IV QMONTH 03/31/17 [History] Docusate [Colace] 300 mg PO HS 03/31/17 [History] Spironolactone [Aldactone] 25 mg PO DAILY 03/31/17 [History] Allergies/Adverse Reactions: Allergies adhesive Allergy (Verified 11/02/16 14:22) Rash clopidogrel [From Plavix] Allergy (Verified 11/02/16 14:22) Rash Iodinated Contrast- Oral and IV Dye Allergy (Verified 11/02/16 14:22) Rash,Hives Penicillins Allergy (Verified 11/02/16 14:22) Rash plasma protein fraction Allergy (Verified 11/02/16 14:22) Swelling of Lip/Tongue/Throat chloraprep Allergy (Uncoded 11/02/16 14:22) Hives Certification: Further, I certify that my clinical findings support that this patient is homebound (i.e. absences from home require considerable and taxing effort and are for medical reasons or hoahaoism services or infrequently or short duration when for other reasons) because: Homebound Reason: Patient requires assistance of a person or device to safely leave home Attestation: My signature below is to certify that this patient is under my care and that I, or nurse practitioner, or a physician's assistant professor of mathematics working with me, has a face-to -face encounter with this patient.
== END 2017-04-02 16:28 | disposition home health service (06) | DRG 690 ==
LOC: EMEROO 09:38 → 2ANU 09:38 → SUATTDRO 11:22 → 2ANU 11:23
PROVIDERS: ADMIT Nurse Practitioner Family; ATTEND Internal Medicine

== ENCOUNTER 2017-08-09 09:49 | Inpatient (IN) ==
[2017-08-09] MEDS ORDERED: 0.9 % Sodium Chloride 1,000 ML IVC ONE (10:26)
--- NOTE | 2017-08-09 10:57 | Emergency Department Note ---
START Narrative - START START: I examined this patient and my medical decision-making was reviewed with the PACE ANALYST/PA/Advanced Practice Nurse/Resident Physician. I agree with the documented findings, disposition and treatment plan as described except to the extent set forth below. She has a history of a kidney transplant and does have urinary symptoms with a positive urine culture and also does have some minimal right flank pain/ tenderness on my exam. On my exam no abdominal pain with palpation in the abdomen is soft without rigidity, rebound, guarding. Patient does have labs ordered as well as IV Rocephin 2 g. The patient is bright and alert and nontoxic in appearance. [id number]
[2017-08-09 11:20] LABS: Hematocrit 30.2 % (35.3-44.9); Hemoglobin 9.8 g/dL (11.5-15.4); Mean Corpuscular HGB Conc 32.5 g/dL (31.6-35.5); Mean Corpuscular Hemoglobin 29.2 pg (28.0-33.3); Mean Corpuscular Volume 89.9 fL (83.0-100.0); Mean Platelet Volume 11.5 fL (9.4-12.4); Platelet Count 145 K/mcL (140-400); Red Blood Count 3.36 M/mcL (3.82-4.97); Red Cell Distribution Width 14.7 % (11.5-14.5)
--- NOTE | 2017-08-09 11:25 | Emergency Department Note ---
Disposition Clinical Impression: Acute on chronic kidney failure Qualifiers: Acute renal failure type: unspecified Chronic kidney disease stage: unspecified stage Qualified Code(s): N17.9 - Acute kidney failure, unspecified UTI (urinary tract infection) Qualifiers: Urinary tract infection type: site unspecified Hematuria presence: without hematuria Qualified Code(s): N39.0 - Urinary tract infection, site not specified Disposition: Admitted As Inpatient Condition: Good Time of Disposition: 12:10 General Adult HPI - General Chief complaint: ED Abdominal Pain Stated complaint: N/V, fever Time Seen by Provider: 08/09/17 09:58 Source: patient Limitations: no limitations Nursing Notes Reviewed: Yes Vital Signs Reviewed: Yes - History of Present Illness HPI Narrative: Patient is a 46-year-old female with a past medical history of kidney transplant and UTI presents complaining of nausea, vomiting, and fever. Patient states that she feels like she has another UTI because it feels similar to her past UTIs. Patient states that this past Sunday, she began feeling unwell and had "UTI symptoms" including a temperature of 99.0, dysuria, increase in urine frequency, and pressure feeling in her pubic region. She denies any numbness and tingling, weaknesses, and blood in her urine. She contacted her kidney transplant team who ordered labs for her on Sunday but advised her to go to the ED if symptoms worsened. Today she states that she had a temperature of 102, nausea, 2 episodes of vomiting, chills, and lower right flank pain that radiates to her groin. She states that nothing makes it better or worse and admits that it feels similar to her past UTI. She denies any history of kidney stones. Pain Scale: 5 - Related Data Home Medications Medication Instructions Recorded Confirmed Albuterol Sulfate [Albuterol 2 puff IH Q4HR PRN 06/11/16 08/09/17 Inhaler] Allopurinol [Zyloprim 100 MG] 100 mg PO DAILY 06/11/16 08/09/17 Aspirin 325 mg PO DAILY 06/11/16 08/09/17 Atorvastatin Calcium [Lipitor] 80 mg PO HS 06/11/16 08/09/17 Calcium Carbonate/Vitamin D3 1 tab PO BID 06/11/16 08/09/17 [Calcium 600 + Vit D Tablet] Ergocalciferol (VITAMIN D2) 50,000 unit PO MOTH 06/11/16 08/09/17 [Vitamin D2] Ferrous Sulfate [Iron] 325 mg PO DAILY 06/11/16 08/09/17 Furosemide [Lasix] 40 mg PO BID 06/11/16 08/09/17 Losartan Potassium [Cozaar] 25 mg PO BID 06/11/16 08/09/17 Metoprolol [Lopressor] 50 mg PO BID 06/11/16 08/09/17 Mycophenolate Sodium [Myfortic] 360 mg PO BID 06/11/16 08/09/17 Omeprazole [PriLOSEC] 40 mg PO BID 06/11/16 08/09/17 Ondansetron HCl [Zofran] 4 mg PO Q8H PRN 06/11/16 08/09/17 Potassium Chloride [K-Tab ER] 40 meq PO TID 06/11/16 08/09/17 Promethazine [Phenergan] 25 mg PO Q6HR PRN 06/11/16 08/09/17 metOLazone [Zaroxolyn] 2.5 mg PO DAILY PRN 06/11/16 08/09/17 predniSONE [PredniSONE] 10 mg PO DAILY 11/02/16 08/09/17 Belatacept [Nulojix] 250 mg IV QMONTH 03/31/17 08/09/17 Docusate [Colace] 300 mg PO HS 03/31/17 08/09/17 Spironolactone [Aldactone] 25 mg PO BID 03/31/17 08/09/17 Allergies Allergy/AdvReac Type Severity Reaction Status Date / Time adhesive Allergy Rash Verified 08/09/17 09:50 clopidogrel [From Plavix] Allergy Rash Verified 08/09/17 09:50 Iodinated Contrast- Oral and Allergy Rash,Hives Verified 08/09/17 09:50 IV Dye Penicillins Allergy Rash Verified 08/09/17 09:50 plasma protein fraction Allergy Swelling Verified 08/09/17 09:50 of Lip/Tongue/Throat chloraprep Allergy Hives Uncoded 08/09/17 09:50 All systems ED: reviewed and negative except as stated. Review of Systems: As Per HPI Constitutional: Reports: fever, chills. Denies: weakness Cardiovascular: Denies: chest pain, palpitations, dyspnea on exertion Respiratory: Denies: dyspnea, wheezes Gastrointestinal: Reports: nausea, vomiting. Denies: abdominal pain Genitourinary: Reports: urgency, dysuria, frequency. Denies: hematuria Musculoskeletal: Reports: back pain (Admits lower right flank pain) Endocrine: Denies: polydipsia, polyuria Past Medical History - Past Medical History Medical history: Reports: GERD, hyperlipidemia, hypertension, renal disease Surgical history: Reports: cholecystectomy, orthopedic, other, other Psychiatric history: Reports: no psych history - Social History Smoking Status: Never smoker Smokeless Tobacco Status: No Alcohol use: Reports: none Drug use: Reports: none Physical Exam - General Limitations: no limitations General appearance: alert, in no apparent distress - Chest Chest inspection: Present: normal inspection, symmetric chest wall rise - Respiratory Respiratory exam: Present: normal lung sounds bilaterally. Absent: respiratory distress, wheezes - Cardiovascular Cardiovascular exam: Present: regular rate, normal rhythm, normal heart sounds - Abdominal Exam Abdominal exam: Present: soft, Non-Tender, other (Patient has tenderness to palpation in the right inguinal. ). Absent: tenderness, distention, guarding, rebound - Back Exam Back exam: Present: normal inspection, CVA tenderness (R). Absent: tenderness, CVA tenderness (L), paraspinal tenderness, vertebral tenderness - Neurological Exam Neurological exam: Present: alert, oriented X3 Course Vital Signs Temperature 98.9 F 08/09/17 09:50 Pulse Rate 70 08/09/17 09:50 Respiratory Rate 18 08/09/17 09:50 Blood Pressure 134/84 08/09/17 09:50 O2 Sat by Pulse Oximetry 98 08/09/17 09:50 Temperature 98.7 F 08/09/17 14:43 Pulse Rate 68 08/09/17 14:43 Respiratory Rate 17 08/09/17 14:43 Blood Pressure 106/73 08/09/17 14:43 O2 Sat by Pulse Oximetry 97 08/09/17 14:43 Oxygen Delivery Oxygen Delivery Room Air Medical Decision Making - [facility] Narrative Medical decision making narrative: She has a history of a kidney transplant, right flank pain, and does have urinary symptoms with a positive urine culture. Vitals are reviewed and she is stable and afebrile. The patient is alert and nontoxic in appearance. On my physical exam, she had right CVA tenderness. No abdominal pain with palpation. Abdomen is soft without rigidity, rebound, or guarding. Patient does have labs ordered as well as IV Rocephin 2 g. 11:31- Labs are reviewed. Patient has Hgb 9.8 which is lower than her baseline but may be secondary to her chronic renal failure. Creatine elevated to 3.12 demonstrating MARINA may be secondary to dehydration. 08/06/17 Creatine was 2.38. Patient is receiving fluids. Reevaluated the patient. Patient states that she feels the same. She does not need anything for pain, but she admits nausea. Will give Zofran. 11:46- CT showed no acute findings. Patient is in no acute distress and still feels the same. 12.01- Spoke with hospitalist, Dr. Morton, and discussed the patient. He agrees to accept the patient. Patient agrees with disposition. - Lab Data Lab results reviewed: Yes I reviewed the patient's lab results. Result diagrams: 08/09/17 11:00 08/09/17 11:00 Lab Results 08/09/17 08/09/17 Range/Units 11:00 11:00 WBC 6.1 (4.3-11.1) K/mcL RBC 3.36 L (3.82-4.97) M/mcL Hgb 9.8 L (11.5-15.4) g/dL Hct 30.2 L (35.3-44.9) % MCV 89.9 (83.0-100.0) fL MCH 29.2 (28.0-33.3) pg MCHC 32.5 (31.6-35.5) g/dL RDW 14.7 H (11.5-14.5) % Plt Count 145 (140-400) K/mcL MPV 11.5 (9.4-12.4) fL Sodium 140 (136-145) mEq/L Potassium 5.2 H (3.5-4.5) mEq/L Chloride 111 H (98-109) mEq/L Carbon Dioxide 22 (19-29) mEq/L BUN 35 H (7-20) mg/dL Creatinine 3.12 H (0.57-1.11) mg/dL Est GFR ( Amer) 19 L (> 60) Est GFR (Non-Af Amer) 16 L (> 60) BUN/Creatinine Ratio 11 (6-26) Glucose 103 H (70-99) mg/dL Calculated Osmolality 298 (280-300) Calcium 8.7 (8.6-10.8) mg/dL - Radiology Data Abdomen/Pelvis CT 08/09/17 10:26 IMPRESSION: 1. No acute findings within the abdomen or pelvis. 2. Moderate bilateral renal cortical atrophy, with stable appearance of right renal transplant. D/ / 08/09/2017 11:42:32 Mohinder Pena MD / [email or web address] Interpreting Provider: Mohinder Pena MD
[2017-08-09 11:28] LABS: Calcium 8.7 mg/dL (8.6-10.8); Potassium 5.2 mEq/L (3.5-4.5)
[2017-08-09] MEDS ORDERED: Ondansetron 4 MG/2 ML VIAL IVP ONE (11:44)
[2017-08-09] MEDS ORDERED: Naloxone 0.4 MG/ML INJ IVP PRN (12:35)
[2017-08-09] MEDS ORDERED: Ondansetron ODT 4 MG TAB.RAPDIS PO PRN (12:44)
[2017-08-09] MEDS ORDERED: BELATACEPT IVP SCH (12:45)
--- NOTE | 2017-08-09 12:53 | Internal Med History&Physical ---
<Hannah Stewart - Last Filed: 08/09/17 14:17> Date of Encounter: 08/09/17 Time of Encounter: 12:53 Assessment and Plan (1) Acute on chronic kidney failure Current visit: Yes Status: Acute 1 patient's creatinine is 3.12 baseline appears to be around 2. She has been experiencing UTI symptoms, has been urinating without difficulty. She is on diuretics as well as an Artie. She was given IV fluid in the ER which we will continue overnight 2 we have consulted nephrology-patient normally sees Dr. Holden 3 we will hold Lasix spirolactone metalazone as well as ARB for now 4 avoid nephrotoxins 5 no NSAIDS 6 renally dose antibiotics 7 monitor intake and output daily weights Qualifiers: Acute renal failure type: unspecified Chronic kidney disease stage: stage 4 (severe) Qualified Code(s): N17.9 - Acute kidney failure, unspecified; N18.4 - Chronic kidney disease, stage 4 (severe); N18.4 - Chronic kidney disease , stage 4 (severe); N18.4 - Chronic kidney disease, stage 4 (severe); N18.4 - Chronic kidney disease, stage 4 (severe) (2) UTI (urinary tract infection) Current visit: No Status: Acute 1 presently she is afebrile no leukocytosis previous urine culture was positive for Klebsiella will continue with Rocephin since it was sensitive 2 Will monitor CBC may consider consulting ID if no improvement Qualifiers: Urinary tract infection type: site unspecified Hematuria presence: without hematuria Qualified Code(s): N39.0 - Urinary tract infection, site not specified (3) Kidney transplant recipient Current visit: No Status: Chronic 1 continue with immunosuppressants, consult transplant nephrology team at [facility] as needed- Dr Pastor (4) Hypertension Current visit: No Status: Chronic 1 [place] patient does have a cane with a creatinine jumping up to 3.12 we will hold diuretics for now and give fluid overnight will resume in a.m. recheck creatinine 2 hold losartan for now due to a JONH and elevated potassium 3 presently blood pressure is stable with systolics 130s we will give hydralazine for now Qualifiers: Hypertension type: essential hypertension Qualified Code(s): I10 - Essential (primary) hypertension (5) Immunosuppressed status Current visit: No Status: Chronic Continue with prednisone mycofenolate (6) Hyperkalemia Current visit: Yes Status: Acute 1 patient does have elevated creatinine 3.12 as well as potassium is 5.2. We will hold Cozaar as well as potassium for now will give IV fluids and recheck potassium 2 continues cardiac monitoring (7) DVT prophylaxis Current visit: No Status: Acute Heparin subcutaneous Internal Medicine - H&P: HPI Chief complaint: urinary sx Admitted From: Emergency Dept Plans for Post Hospital Care: Home History of present illness: Ms. 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 She presented to the ER today because she was experiencing urinary symptoms. Frequency burning and urgency and low grade temperature which started on Sunday. She did contact her kidney transplant team who ordered labs for her on Sunday but advised her to go to the ER if symptoms worsened today she began to experience temperature 100.2 nausea lower abdominal pain vomiting 2. She denies any hematuria or flank pain. Previous urine culture in June came back positive for Klebsiella. She presented to the ER with these complaints. According to ER records leukocytosis she did not appear septic. Urinalysis indicative of UTI she was given Rocephin which was sensitive to previous culture and blood cultures were obtained. She has been admitted for further workup and evaluation. I reviewed this case with Dr. Fernandez who agrees with plan. Past Med Surg Social Fam HX - Past Medical History Medical history: GERD, hyperlipidemia, hypertension, renal disease Psychiatric history: no psych history - Past Surgical History Surgical History: cholecystectomy, orthopedic, other, other - Social History Smoking Status: Never smoker Smokeless Tobacco Status: No Alcohol use: none Drug use: none - Family History Father Living Status: Still Living Hx Family Cardiac Disorders: Yes (HTN) Hx Family Endocrine Disorder: Yes (diabetes) Mother Living Status: Still Living Hx Family Cardiac Disorders: Yes (htn) Internal Medicine - H&P: Meds Albuterol Sulfate [Albuterol Inhaler] 2 puff IH Q4HR PRN 06/11/16 [History] Allopurinol [Zyloprim 100 MG] 100 mg PO DAILY 06/11/16 [History] Aspirin 325 mg PO DAILY 06/11/16 [History] Atorvastatin Calcium [Lipitor] 80 mg PO HS 06/11/16 [History] Calcium Carbonate/Vitamin D3 [Calcium 600 + Vit D Tablet] 1 tab PO BID 06/11/16 [History] Ergocalciferol (VITAMIN D2) [Vitamin D2] 50,000 unit PO MOTH 06/11/16 [History] Ferrous Sulfate [Iron] 325 mg PO DAILY 06/11/16 [History] Furosemide [Lasix] 40 mg PO BID 06/11/16 [History] Losartan Potassium [Cozaar] 25 mg PO BID 06/11/16 [History] Metoprolol [Lopressor] 50 mg PO BID 06/11/16 [History] Mycophenolate Sodium [Myfortic] 360 mg PO BID 06/11/16 [History] Omeprazole [PriLOSEC] 40 mg PO BID 06/11/16 [History] Ondansetron HCl [Zofran] 4 mg PO Q8H PRN 06/11/16 [History] Potassium Chloride [K-Tab ER] 40 meq PO TID 06/11/16 [History] Promethazine [Phenergan] 25 mg PO Q6HR PRN 06/11/16 [History] metOLazone [Zaroxolyn] 2.5 mg PO DAILY PRN 06/11/16 [History] predniSONE [PredniSONE] 10 mg PO DAILY 11/02/16 [History] Belatacept [Nulojix] 250 mg IV QMONTH 03/31/17 [History] Docusate [Colace] 300 mg PO HS 03/31/17 [History] Spironolactone [Aldactone] 25 mg PO BID 03/31/17 [History] 3 Allergy/AdvReac Type Severity Reaction Status Date / Time adhesive Allergy Rash Verified 08/09/17 09:50 clopidogrel [From Plavix] Allergy Rash Verified 08/09/17 09:50 Iodinated Contrast- Oral and Allergy Rash,Hives Verified 08/09/17 09:50 IV Dye Penicillins Allergy Rash Verified 08/09/17 09:50 plasma protein fraction Allergy Swelling Verified 08/09/17 09:50 of Lip/Tongue/Throat chloraprep Allergy Hives Uncoded 08/09/17 09:50 All Systems PM: A 10-system review of systems was performed and is negative for pertinent findings except as documented above in the HPI. - Constitutional Constitutional: fever(s) - EENT Eyes: no change in vision, no discharge, no pain, no photophobia Nose, mouth and throat: no dysphagia, no nasal discharge, no neck pain, no sore throat - Cardiovascular Cardiovascular ROS IM: no chest pain, no diaphoresis, no dyspnea, no lightheadedness, no palpitations, no syncope - Respiratory Respiratory: no cough, no dyspnea, no wheezing, no excessive phlegm production - Gastrointestinal Gastrointestinal: abdominal pain, nausea, vomiting - Genitourinary Genitourinary: pelvic pain, urinary frequency, urinary urgency - Musculoskeletal Musculoskeletal ROS IM: no numbness, no tingling - Neurological Neurological ROS: no confusion, no convulsions, no focal weakness, no numbness, no tingling, no tremor(s) - Hematologic/Lymphatic Hematologic/Lymphatic: no easy bruising - Constitutional Vitals: Temp Pulse Resp BP Pulse Ox 98.9 F 70 18 134/84 98 08/09/17 09:50 08/09/17 09:50 08/09/17 09:50 08/09/17 09:50 08/09/17 09:50 General appearance: Present: A&O X 3, answers questions appropriately - Head Head exam: Present: atraumatic, normocephalic - Eye Eye exam: Present: PERRL, conjuntiva pink, sclera anicteric Pupils: Present: PERRL - Neck Neck exam general surgery: Present: supple, trachea midline. Absent: lymphadenopathy - Respiratory Respiratory exam: Present: CTAB. Absent: accessory muscle use, rales, rhonchi, wheezes - Cardiovascular Cardiovascular exam: Present: RRR, +S1, +S2. Absent: diastolic murmur, gallop, rubs, systolic murmur - GI/Abdominal GI/Abdominal exam: Present: normal bowel sounds, soft, no peritoneal signs. Absent: distended, tenderness - Extremities Exam Extremities exam: Present: warm, radial pulses palpable and symmetrical. Absent : calf tenderness, cyanotic, pedal edema - Neurological Exam Neurological exam: Present: CN II-XII intact, oriented X3, no focal deficits. Absent: pronater drift, facial droop, speech deficit - Skin Skin exam: Present: dry, intact Internal Med - H&P Results - Labs CBC & Chem 7: 08/09/17 11:00 08/09/17 11:00 Labs: Short CBC 08/09/17 Range/Units 11:00 WBC 6.1 (4.3-11.1) K/mcL Hgb 9.8 L (11.5-15.4) g/dL Hct 30.2 L (35.3-44.9) % Plt Count 145 (140-400) K/mcL BMP 08/09/17 11:00 Sodium 140 Potassium 5.2 H Chloride 111 H Carbon Dioxide 22 BUN 35 H Creatinine 3.12 H Glucose 103 H Calcium 8.7 - Impressions ITS Impressions Abdomen/Pelvis CT 08/09/17 10:26 IMPRESSION: 1. No acute findings within the abdomen or pelvis. 2. Moderate bilateral renal cortical atrophy, with stable appearance of right renal transplant. D/ / 08/09/2017 11:42:32 Mohinder Pena MD / [email or web address] Interpreting Provider: Mohinder Pena MD <Yong Fernandez - Last Filed: 08/09/17 19:39> Date of Encounter: 08/09/17 Internal Medicine - H&P: HPI History of present illness: Ms. Maurer is a 46 year old female All Systems PM: A 10-system review of systems was performed and is negative for pertinent findings except as documented above in the HPI. - Constitutional Vitals: Temp Pulse Resp BP Pulse Ox 99.9 F H 87 16 177/79 99 08/09/17 19:00 08/09/17 19:00 08/09/17 19:00 08/09/17 19:00 08/09/17 19:00 Internal Med - H&P Results - Labs CBC & Chem 7: 08/09/17 11:00 08/09/17 11:00 - Attending Attestation I independently obtained history and examined this patient and my medical decision-making was reviewed with the nurse practitioner. I agree with the documented findings, disposition and treatment plan as described. My findings are summarized below: Patient presented with right flank pain and dysuria. Vital signs are stable. She has been afebrile and not tachycardic. She is in no acute distress. Heart is regular. Lungs are clear. Laboratory data reviewed. Plan: IV ceftriaxone 2 g daily. She may need PICC line versus tunneled subclavian central line placement for 10-14 days of IV antibiotics for complicated UTI in a kidney transplant recipient. Follow-up urine culture and sensitivities. Patient's temperature is low-grade fever at 99.9. I will obtain 2 sets of blood cultures. Follow-up with nephrology. Continue transplant meds. Yong Fernandez MD
[2017-08-09] MEDS: 0.9 % Sodium Chloride 1,000 ML IVC SCH (13:37)
[2017-08-09] MEDS: Cholecalciferol (D-3) 1,000 UNIT TABLET PO SCH (15:04)
--- NOTE | 2017-08-09 16:18 | Nephrology Consult Note ---
Date of Encounter: 08/09/17 Time of Encounter: 16:16 Assessment and Plan (1) Acute on chronic kidney failure Current Visit: Yes Status: Acute 38-year-old female with known FSGS kidney transplant presents with a creatinine of 3.12 up from 2.38 4 days ago. baseline CKD IV. Baseline creatinine around 2.0 and GFR currently 16 with a baseline in the mid 20s. - Acute kidney injury in the setting of Klebsiella urinary tract infection, low- grade fevers and nausea and vomiting. - CT of the abdomen without any acute findings - Acute kidney injury likely prerenal due to volume depletion. Plan: - Continue IV rehydration with normal saline - Continue IV ceftriaxone renally dose the treatment Klebsiella urinary tract infection - Promote oral intake - Monitor renal function with exam labs - Protein creatinine ratio as patient demonstrates current 300 protein on urine - Avoid nephrotoxic medications and renally dose antibiotics. Qualifiers: Acute renal failure type: unspecified Chronic kidney disease stage: stage 4 (severe) Qualified Code(s): N17.9 - Acute kidney failure, unspecified; N18.4 - Chronic kidney disease, stage 4 (severe); N18.4 - Chronic kidney disease , stage 4 (severe); N18.4 - Chronic kidney disease, stage 4 (severe); N18.4 - Chronic kidney disease, stage 4 (severe) (2) UTI (urinary tract infection) Current Visit: No Status: Acute Klebsiella urinary tract infection, sensitive to ceftriaxone. 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 - Follow up with [facility] transplant team as scheduled. (4) Hypertension Current Visit: No Status: Chronic Patient is a history of hypertension currently on losartan 25 mg by mouth twice a day, metoprolol 50 mg by mouth twice a day at home for blood pressure control - Blood pressure currently 153/86 Plan: - We will recommend holding losartan - Continue metoprolol - Adjust blood pressure medications to obtain blood pressure below 130/80 Qualifiers: Hypertension type: essential hypertension Qualified Code(s): I10 - Essential (primary) hypertension (5) Hyperkalemia Current Visit: Yes Status: Acute Potassium 5.2, elevation in the setting of acute on chronic stage IV kidney disease. 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 She has a history of recurrent urinary tract infections with both Escherichia coli and Klebsiella. She is recently discharged on 07/01/2017 with a Klebsiella urinary tract infection. She states that she started to feel burning with urination muscle aches on Sunday evening and called her transplant Center at [facility] who recommended her having a urine sample collected. She is waiting on the final results of the urinalysis when she started developing a fever which she recorded 102 at home, muscle aches and nausea and vomiting which brought her in. She states that this is similar to previous urinary tract infection symptoms. She currently feels better after starting IV antibiotics and is in good spirits. She denies noticing any blood in her urine denies any self cathetering or history of urinary retention. She was not taking any antibiotics since Sunday. With regards to her last urinary tract infection she was taking Levaquin and completed a length of course. Past Med Surg Social Fam HX - Past Medical History Medical history: GERD, hyperlipidemia, hypertension, renal disease Psychiatric history: no psych history - Past Surgical History Surgical History: cholecystectomy, orthopedic, other, other - Social History Smoking Status: Never smoker Smokeless Tobacco Status: No Alcohol use: none Drug use: none - Family History Father Living Status: Still Living Hx Family Cardiac Disorders: Yes (HTN) Hx Family Endocrine Disorder: Yes (diabetes) Mother Living Status: Still Living Hx Family Cardiac Disorders: Yes (htn) Medications and Allergies Albuterol Sulfate [Albuterol Inhaler] 2 puff IH Q4HR PRN 06/11/16 [History] Allopurinol [Zyloprim 100 MG] 100 mg PO DAILY 06/11/16 [History] Aspirin 325 mg PO DAILY 06/11/16 [History] Atorvastatin Calcium [Lipitor] 80 mg PO HS 06/11/16 [History] Calcium Carbonate/Vitamin D3 [Calcium 600 + Vit D Tablet] 1 tab PO BID 06/11/16 [History] Ergocalciferol (VITAMIN D2) [Vitamin D2] 50,000 unit PO MOTH 06/11/16 [History] Ferrous Sulfate [Iron] 325 mg PO DAILY 06/11/16 [History] Furosemide [Lasix] 40 mg PO BID 06/11/16 [History] Losartan Potassium [Cozaar] 25 mg PO BID 06/11/16 [History] Metoprolol [Lopressor] 50 mg PO BID 06/11/16 [History] Mycophenolate Sodium [Myfortic] 360 mg PO BID 06/11/16 [History] Omeprazole [PriLOSEC] 40 mg PO BID 06/11/16 [History] Ondansetron HCl [Zofran] 4 mg PO Q8H PRN 06/11/16 [History] Potassium Chloride [K-Tab ER] 40 meq PO TID 06/11/16 [History] Promethazine [Phenergan] 25 mg PO Q6HR PRN 06/11/16 [History] metOLazone [Zaroxolyn] 2.5 mg PO DAILY PRN 06/11/16 [History] predniSONE [PredniSONE] 10 mg PO DAILY 11/02/16 [History] Belatacept [Nulojix] 250 mg IV QMONTH 03/31/17 [History] Docusate [Colace] 300 mg PO HS 03/31/17 [History] Spironolactone [Aldactone] 25 mg PO BID 03/31/17 [History] 3 Allergy/AdvReac Type Severity Reaction Status Date / Time adhesive Allergy Rash Verified 08/09/17 09:50 clopidogrel [From Plavix] Allergy Rash Verified 08/09/17 09:50 Iodinated Contrast- Oral and Allergy Rash,Hives Verified 08/09/17 09:50 IV Dye Penicillins Allergy Rash Verified 08/09/17 09:50 plasma protein fraction Allergy Swelling Verified 08/09/17 09:50 of Lip/Tongue/Throat chloraprep Allergy Hives Uncoded 08/09/17 09:50 Review of Systems Constitutional: fever(s), no excessive sweating, no weight loss Eyes: bilateral: blurred vision (patient denies), diplopia (patient denies) Nose, mouth and throat: no dizziness, no headache(s) Cardiovascular: no chest pain, no palpitations Respiratory: no cough, no dyspnea Gastrointestinal: no abdominal pain, no change in bowel habits Musculoskeletal: no muscle weakness, no numbness Integumentary: no hirsutism, no striae Psychiatric: no depression, no difficulty concentrating Endocrine: as per HPI Hematologic/Lymphatic: no easy bruising, no lymphadenopathy Exam - Vital Signs Vital signs: Initial Vital Signs Temp Pulse Resp BP Pulse Ox 98.9 F 70 18 134/84 98 08/09/17 09:50 08/09/17 09:50 08/09/17 09:50 08/09/17 09:50 08/09/17 09:50 Vital Signs - Last 8 Hours Temp Pulse Resp BP Pulse Ox 08/09/17 14:43 98.7 F 68 17 106/73 97 08/09/17 13:54 99 08/09/17 13:45 18 143/71 Intake and Output 08/09/17 08/09/17 08/09/17 07:59 15:59 23:59 Intake Total 1000 / 1100 Output Total 0 / 0 Balance 1000 / 1100 Intake: IV Fluids 1000 / 1000 0.9 % Sodium Chloride 1,000 ML 1000 / 1000 @ 3750 mls/hr IVC .Q16M ONE Rx# :[id number] Oral 0 / 0 Output: Urine 0 / 0 Other: Weight 104.44 kg Patient Weight 08/09/17 23:59 Weight 104.44 kg - General Appearance Exam: General: Patient alert, awake, oriented 3, interactive, in no acute distress HEENT: Normocephalic, atraumatic, pupils equal reactive to light, nasal cavity patent and open septum median position, oral mucosa moist, uvula midline, neck supple trachea midline no palpable lymphadenopathy, no thyromegaly. Chest: Symmetric bilateral correlating with respiratory effort, effort nonlabored. Cardiac: Regular rate and rhythm, positive S1 and S2. no bruits appreciated bilateral carotids, Radial pulses 2+ bilateral, posterior tibial and dorsal pedal pulses 2+ bilateral. Respiratory: Clear to auscultation all lung gallegos Extremities: Symmetric bilateral, bilateral lower extremities without erythema or edema patient moving all 4 extremities spontaneously. Neurologic: No focal deficits appreciated on examination. Face symmetric, muscle strength symmetric bilateral upper and lower extremities. Results - Lab Results 08/09/17 11:00 08/09/17 11:00 Most recent lab results Calcium 8.7 mg/dL (8.6-10.8) 08/09/17 11:00 Consult Discharge Plan - Plan Referrals: Lindsey Cazares MD [Primary Care Provider] -
[2017-08-09] MEDS: Ondansetron 4 MG/2 ML VIAL IVP PRN (17:47)
[2017-08-09] MEDS ORDERED: Promethazine 12.5 MG in 0.9 % Sodium Chloride 50 ML IVPB PRN (19:36)
[2017-08-09] MEDS: Acetaminophen 325 MG TABLET PO PRN (20:02)
[2017-08-09] MEDS: *HR* Promethazine 25 MG/ML VIAL IVP PRN (20:02)
[2017-08-09] MEDS: Mycophenolate Sodium (DR) 180 MG TABLET.DR PO SCH (20:21)
[2017-08-10] MEDS: Acetaminophen 325 MG TABLET PO PRN ×3 (02:14→23:49)
[2017-08-10] MEDS: *HR* Promethazine 25 MG/ML VIAL IVP PRN ×2 (02:14→10:44)
[2017-08-10 04:47] LABS: Basophils % 0.4 %; Eosinophils % 0.7 %; Hematocrit 27.7 % (35.3-44.9); Hemoglobin 8.8 g/dL (11.5-15.4); Immature Granulocytes % 1.3 % (0-4); Lymphocytes # 0.7 K/mcL (0.6-4.6); Lymphocytes % 12.9 %; Mean Corpuscular HGB Conc 31.8 g/dL (31.6-35.5); Mean Corpuscular Hemoglobin 28.9 pg (28.0-33.3); Mean Corpuscular Volume 90.8 fL (83.0-100.0); Mean Platelet Volume 11.6 fL (9.4-12.4); Monocytes # 0.7 K/mcL (0.0-1.3); Monocytes % 12.4 %; Platelet Count 119 K/mcL (140-400); Red Blood Count 3.05 M/mcL (3.82-4.97); Red Cell Distribution Width 14.7 % (11.5-14.5); Segmented Neutrophils % 72.3 %
[2017-08-10 05:00] LABS: Calcium 7.9 mg/dL (8.6-10.8); Magnesium 1.5 mg/dL (1.6-2.6); Potassium 4.1 mEq/L (3.5-4.5)
--- NOTE | 2017-08-10 08:15 | Nephrology Progress Note ---
Date of Encounter: 08/10/17 Time of Encounter: 08:15 - Assessment and Plan (1) Acute on chronic kidney failure Current Visit: Yes Status: Acute 38-year-old female with known FSGS kidney transplant presents with a creatinine of 3.12 up from 2.38 4 days ago. baseline CKD IV. Baseline creatinine around 2.0 and GFR currently 16 with a baseline in the mid 20s. - Acute kidney injury in the setting of Klebsiella urinary tract infection, low- grade fevers and nausea and vomiting. - CT of the abdomen without any acute findings - Acute kidney injury likely prerenal due to volume depletion. 08/10: Renal function improving with rehydration, creatinine 2.55 and GFR at 20. Continue IV fluids, promote oral intake. Protein creatinine ratio still pending. - PTH 64.7 07/23/2017 Plan: - Continue IV rehydration with normal saline - Continue IV ceftriaxone renally dose the treatment Klebsiella urinary tract infection - Promote oral intake - Monitor renal function with exam labs - Protein creatinine ratio as patient demonstrates current 300 protein on urine - Avoid nephrotoxic medications and renally dose antibiotics. Qualifiers: Acute renal failure type: unspecified Chronic kidney disease stage: stage 4 (severe) Qualified Code(s): N17.9 - Acute kidney failure, unspecified; N18.4 - Chronic kidney disease, stage 4 (severe); N18.4 - Chronic kidney disease , stage 4 (severe); N18.4 - Chronic kidney disease, stage 4 (severe); N18.4 - Chronic kidney disease, stage 4 (severe) (2) UTI (urinary tract infection) Current Visit: No Status: Acute Klebsiella urinary tract infection, sensitive to ceftriaxone. 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 - Follow up with [facility] transplant team as scheduled. (4) Hypertension Current Visit: No Status: Chronic Patient is a history of hypertension currently on losartan 25 mg by mouth twice a day, metoprolol 50 mg by mouth twice a day at home for blood pressure control - Blood pressure stable. Plan: - We will recommend holding losartan - Continue metoprolol - Adjust blood pressure medications to obtain blood pressure below 130/80 Qualifiers: Hypertension type: essential hypertension Qualified Code(s): I10 - Essential (primary) hypertension (5) Hyperkalemia Current Visit: Yes Status: Acute Potassium 4.1 this morning. Improvement with improved renal function. (6) Hypomagnesemia Current Visit: Yes Status: Acute Magnesium 1.5, 2 g magnesium IV given. - Recheck mag level in a.m. Subjective Principal diagnosis: Acute on chronic kidney disease Interval history: Mrs. Maurer has not seen and evaluated patient bedside this morning. She is awake alert and interactive no acute distress. She said she continues to feel slightly nauseous and did have chills overnight but denies any vomiting, abdominal pain, chest pain, shortness of breath or chest pressure. She does continue to have some burning with urination but denies any blood in her urine, difficulty with starting or stopping urination or flank pain. Objective - Vital Signs Vital signs: Vital Signs Temp Pulse Resp BP Pulse Ox 08/10/17 07:30 98.8 F 81 18 137/83 97 08/10/17 03:34 99.8 F H 95 16 122/81 96 08/10/17 00:08 99.6 F 82 16 118/76 97 Intake and Output 08/09/17 08/10/17 08/10/17 23:59 07:59 15:59 Intake Total 120 / 120 240 / 240 Balance 120 / 120 240 / 240 Intake: Oral 120 / 120 240 / 240 Other: # Voids 1 1 Weight 106.549 kg Patient Weight 08/10/17 23:59 Weight 106.549 kg - General Appearance General appearance: Present: well-developed, well-nourished, appears started age Neck: Present: no JVD, no thyromegaly, no carotid bruit, supple Respiratory: Present: no kyphosis, no scoliosis Cardiology: Present: no murmurs, no rub, no gallops, no edema, regular rate, regular rhythm, normal S1, normal S2 Gastrointestinal: Present: normoactive bowel sounds, no tenderness Integumentary: Present: no rash, warm and dry Neurologic: Present: no focal deficit, no asterixis, alert and oriented x3, reflexes 2+ and symmetric, gait normal, strength 5/5 Musculoskeletal: Present: no deformities, no erythema, no cyanosis, no clubbing Psychiatric: Present: mood/affect appropriate, cooperative - Lab 08/10/17 04:19 08/10/17 04:19 Most recent lab results Calcium 7.9 mg/dL (8.6-10.8) L 08/10/17 04:19 Magnesium 1.5 mg/dL (1.6-2.6) L 08/10/17 04:19 Consult Discharge Plan - Plan Referrals: Lindsey Cazares MD [Primary Care Provider] -
[2017-08-10] MEDS ORDERED: Magnesium Sulfate 2 GM in D5% in Water 100 ML IVPB ONE (08:16)
[2017-08-10] MEDS: Ondansetron 4 MG/2 ML VIAL IVP PRN (09:04)
[2017-08-10] MEDS: Cholecalciferol (D-3) 1,000 UNIT TABLET PO SCH (11:37)
[2017-08-10] MEDS: Aspirin 325 MG TABLET PO SCH (11:37)
[2017-08-10] MEDS: predniSONE 10 MG TABLET PO SCH (11:37)
[2017-08-10] MEDS: Mycophenolate Sodium (DR) 180 MG TABLET.DR PO SCH ×2 (11:37→21:59)
[2017-08-10] MEDS ORDERED: Prochlorperazine 10 MG/2 ML VIAL IVP ONE (12:47)
[2017-08-10 14:33] LABS: Folate 10.1 ng/mL (7.0-31.4)
--- NOTE | 2017-08-10 15:45 | Internal Med Progress Note ---
Date of Encounter: 08/10/17 Time of Encounter: 10:00 - Assessment and plan (1) Urinary tract infection due to Klebsiella species Current Visit: Yes Status: Acute Assessment and plan: Continue Rocephin. Will monitor patient tonight. Factoring: sensitivities, PCN allergy, kidney injury, she would benefit from PO Keflex or Omnicef or Cipro upon discharge. (2) Acute on chronic kidney failure Current Visit: Yes Status: Acute Qualifiers: Acute renal failure type: unspecified Chronic kidney disease stage: stage 4 (severe) Qualified Code(s): N17.9 - Acute kidney failure, unspecified; N18.4 - Chronic kidney disease, stage 4 (severe); N18.4 - Chronic kidney disease , stage 4 (severe); N18.4 - Chronic kidney disease, stage 4 (severe); N18.4 - Chronic kidney disease, stage 4 (severe) (3) Kidney transplant recipient Current Visit: No Status: Chronic (4) Hypertension Current Visit: No Status: Chronic Assessment and plan: Losartan is held for now. Will put on Hydralazine as prn. Qualifiers: Hypertension type: essential hypertension Qualified Code(s): I10 - Essential (primary) hypertension - Subjective Interval history: No complaints, no acute events. - Constitutional Vitals: Temp Pulse Resp BP Pulse Ox 99 F 74 14 122/67 94 08/10/17 15:13 08/10/17 15:13 08/10/17 15:13 08/10/17 15:13 08/10/17 15:13 General appearance: Present: A&O X 3, answers questions appropriately Exam: Neck: Present: no JVD, no thyromegaly, no carotid bruit, supple Respiratory: Present: no kyphosis, no scoliosis Cardiology: Present: no murmurs, no rub, no gallops, no edema, regular rate, regular rhythm, normal S1, normal S2 Gastrointestinal: Present: normoactive bowel sounds, no tenderness Integumentary: Present: no rash, warm and dry Neurologic: Present: no focal deficit, no asterixis, alert and oriented x3, reflexes 2+ and symmetric, gait normal, strength 5/5 Musculoskeletal: Present: no deformities, no erythema, no cyanosis, no clubbing Psychiatric: Present: mood/affect appropriate, cooperative Internal Medicine: Result - Labs CBC & Chem 7: 08/10/17 04:19 08/10/17 04:19 Labs: Short CBC 08/10/17 Range/Units 04:19 WBC 5.6 (4.3-11.1) K/mcL Hgb 8.8 L (11.5-15.4) g/dL Hct 27.7 L (35.3-44.9) % Plt Count 119 L (140-400) K/mcL Neutrophils # 4.0 (1.6-8.9) K/mcL BMP 08/09/17 08/10/17 21:23 04:19 Sodium 140 Potassium 4.1 D 4.1 Chloride 113 H Carbon Dioxide 21 BUN 32 H Creatinine 2.55 H Glucose 91 Calcium 7.9 L Consult Discharge Plan - Plan Referrals: Lindsey Cazares MD [Primary Care Provider] - 08/15/17 9:00 am (please follow up as schedule...)
[2017-08-10] MEDS ORDERED: Prochlorperazine 10 MG/2 ML VIAL IVP PRN (23:34)
[2017-08-11] MEDS: 0.9 % Sodium Chloride 1,000 ML IVC SCH (07:40)
[2017-08-11 07:50] LABS: Basophils % 0.5 %; Eosinophils # 0.1 K/mcL (0.0-0.6); Eosinophils % 3.5 %; Hematocrit 26.4 % (35.3-44.9); Hemoglobin 8.5 g/dL (11.5-15.4); Immature Granulocytes % 1.8 % (0-4); Lymphocytes # 0.7 K/mcL (0.6-4.6); Lymphocytes % 18.1 %; Mean Corpuscular HGB Conc 32.2 g/dL (31.6-35.5); Mean Corpuscular Hemoglobin 29.1 pg (28.0-33.3); Mean Corpuscular Volume 90.4 fL (83.0-100.0); Mean Platelet Volume 11.6 fL (9.4-12.4); Monocytes # 0.5 K/mcL (0.0-1.3); Monocytes % 12.3 %; Neutrophils # 2.5 K/mcL (1.6-8.9); Platelet Count 122 K/mcL (140-400); Red Blood Count 2.92 M/mcL (3.82-4.97); Segmented Neutrophils % 63.8 %
[2017-08-11 07:52] LABS: Calcium 7.9 mg/dL (8.6-10.8)
[2017-08-11] MEDS: predniSONE 10 MG TABLET PO SCH (09:08)
[2017-08-11] MEDS: Aspirin 325 MG TABLET PO SCH (09:08)
[2017-08-11] MEDS: Mycophenolate Sodium (DR) 180 MG TABLET.DR PO SCH ×2 (09:08→21:26)
[2017-08-11] MEDS: Cholecalciferol (D-3) 1,000 UNIT TABLET PO SCH (09:09)
[2017-08-11] MEDS ORDERED: FLUARIX QUAD 2017-18 36MOS UP/PF 0.5 ML SYRINGE IM ONE (09:40)
--- NOTE | 2017-08-11 09:55 | Nephrology Progress Note ---
Date of Encounter: 08/11/17 Time of Encounter: 09:53 - Assessment and Plan (1) Acute on chronic kidney failure Current Visit: Yes Status: Acute Patient with MARINA on CKD that seems to be secondary to UTI and possibly a contribution of dehydration. Her renal function has improved with treatment of her urinary tract infection and hydration. Her creatinine is back to baseline and she should be safe for outpatient monitoring of her renal function. I recommend checking a BMP in about 2 weeks and have her follow-up with Dr. Bruce in 4-6 weeks. Avoid nephrotoxins and adjust the dictation for renal function. 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 This can be monitored on an outpatient basis. Qualifiers: Acute renal failure type: unspecified Chronic kidney disease stage: unspecified stage Qualified Code(s): N17.9 - Acute kidney failure, unspecified ; N18.9 - Chronic kidney disease, unspecified; N18.9 - Chronic kidney disease, unspecified (2) Anemia Current Visit: Yes Status: Acute Patient has iron deficiency anemia and is on oral iron. She reports that she has been on oral iron since her transplant. She could benefit from intravenous iron which she has had before. I recommend waiting until her urinary tract infection is cleared and starting IV iron after that. Consider venofer 500mg ivpb on day 1 and day 14. Start the 1st dose in 3-4 weeks. Her vitamin B12 is on the low side so I recommend starting cyanocobalamin. Qualifiers: Qualified Code(s): D64.9 - Anemia, unspecified (3) Urinary tract infection due to Klebsiella species Current Visit: Yes Status: Acute Patient with UTI/polynephritis and a history of renal transplant. She has had multiple episodes of UTI/pyelonephritis. She seems to have improved with current treatment and is currently asymptomatic, without leukocytosis or fever. I recommend that she be discharged with 2 weeks of antibiotic coverage. (4) Hypomagnesemia Current Visit: Yes Status: Acute Replace as needed. (5) Renal transplant recipient Current Visit: No Status: Acute Continue her antirejection medications. Subjective Principal diagnosis: Acute on chronic kidney disease Interval history: Patient seen and evaluated. No new complaints. She feels better and denies chills. Objective - Vital Signs Vital signs: Vital Signs Temp Pulse Resp BP Pulse Ox 08/11/17 07:26 98.2 F 68 16 140/87 98 08/11/17 03:55 97.7 F 67 18 132/68 98 08/11/17 00:24 98.0 F 86 18 162/88 97 08/10/17 21:05 98.6 F 71 17 137/73 97 08/10/17 15:13 99 F 74 14 122/67 94 08/10/17 11:03 99.9 F H 85 18 153/94 97 08/10/17 10:01 97 Intake and Output 08/10/17 08/11/17 08/11/17 23:59 07:59 15:59 Intake Total 480 / 480 900 / 900 0 / 0 Output Total 0 / 0 Balance 480 / 480 900 / 900 0 / 0 Intake: IV Fluids 900 / 900 0.9 % Sodium Chloride 1,000 ML 900 / 900 @ 75 mls/hr IVC .[id number] STACY Rx #:[id number] Oral 480 / 480 0 / 0 Output: Urine 0 / 0 Other: Meal Lunch Percent of Meal Consumed 75% # Voids 1 Weight 106.1 kg Patient Weight 08/11/17 23:59 Weight 106.1 kg - General Appearance General appearance: Present: well-developed, well-nourished EENT: Present: ATNC Neck: Present: supple Respiratory: Present: clear Cardiology: Present: no edema, regular rate, regular rhythm Gastrointestinal: Present: no tenderness Integumentary: Present: warm and dry Neurologic: Present: alert and oriented x3 Musculoskeletal: Present: no cyanosis Psychiatric: Present: mood/affect appropriate - Lab 08/11/17 07:30 08/11/17 07:30 Most recent lab results Calcium 7.9 mg/dL (8.6-10.8) L 08/11/17 07:30 Magnesium 1.5 mg/dL (1.6-2.6) L 08/10/17 04:19 Consult Discharge Plan - Plan Instructions: Acute Kidney Injury (DC), Urinary Tract Infection in Women (DC), Hyperkalemia (DC) Referrals: Lindsey Cazares MD [Primary Care Provider] - 08/15/17 9:00 am (please follow up as schedule...)
--- NOTE | 2017-08-11 10:42 | Internal Med Progress Note ---
Date of Encounter: 08/11/17 Time of Encounter: 10:40 - Assessment and plan (1) Urinary tract infection due to Klebsiella species Current Visit: Yes Status: Acute Assessment and plan: Doing well overall, but due to her complicated history of UTI should benefit from another day or 2 of IV antibiotics. Based on her sensitivities and response to treatment here, she would benefit from Ceftin upon discharge. Others to consider Levaquin or Cipro, however renal function would make this less preferable. (2) Acute on chronic kidney failure Current Visit: Yes Status: Resolved Assessment and plan: She has returned to baseline function. We will not resume her losartan and monitor renal function overnight. Qualifiers: Acute renal failure type: unspecified Chronic kidney disease stage: stage 4 (severe) Qualified Code(s): N17.9 - Acute kidney failure, unspecified; N18.4 - Chronic kidney disease, stage 4 (severe); N18.4 - Chronic kidney disease , stage 4 (severe); N18.4 - Chronic kidney disease, stage 4 (severe); N18.4 - Chronic kidney disease, stage 4 (severe) (3) Hypertension Current Visit: No Status: Chronic Assessment and plan: Losartan since she is back at her renal function baseline. Monitor renal function overnight. Qualifiers: Hypertension type: essential hypertension Qualified Code(s): I10 - Essential (primary) hypertension (4) Kidney transplant recipient Current Visit: No Status: Chronic - Subjective Interval history: No complaints, no acute events. She denies fevers chills or vomiting. Some dysuria present but overall doing well. - Constitutional Vitals: Temp Pulse Resp BP Pulse Ox 98.2 F 68 16 140/87 98 08/11/17 07:26 08/11/17 07:26 08/11/17 07:26 08/11/17 07:26 08/11/17 07:26 General appearance: Present: A&O X 3, answers questions appropriately - Head Head exam: Present: atraumatic, normocephalic - Respiratory Respiratory exam: Present: CTAB. Absent: accessory muscle use, rales, rhonchi, wheezes - Cardiovascular Cardiovascular exam: Present: RRR, +S1, +S2. Absent: diastolic murmur, gallop, rubs, systolic murmur - Extremities Exam Extremities exam: Present: warm, radial pulses palpable and symmetrical. Absent : calf tenderness, cyanotic, pedal edema Internal Medicine: Result - Labs CBC & Chem 7: 08/11/17 07:30 08/11/17 07:30 Labs: Short CBC 08/11/17 Range/Units 07:30 WBC 4.0 L (4.3-11.1) K/mcL Hgb 8.5 L (11.5-15.4) g/dL Hct 26.4 L (35.3-44.9) % Plt Count 122 L (140-400) K/mcL Neutrophils # 2.5 (1.6-8.9) K/mcL BMP 08/10/17 08/11/17 04:19 07:30 Sodium 140 143 Potassium 4.1 4.0 Chloride 113 H 113 H Carbon Dioxide 21 24 BUN 32 H 31 H Creatinine 2.55 H 2.30 H Glucose 91 78 Calcium 7.9 L 7.9 L Consult Discharge Plan - Plan Instructions: Acute Kidney Injury (DC), Urinary Tract Infection in Women (DC), Hyperkalemia (DC) Referrals: Lindsey Cazares MD [Primary Care Provider] - 08/15/17 9:00 am (please follow up as schedule...)
[2017-08-11] MEDS: Cyanocobalamin (B-12) 1,000 MCG TABLET PO SCH (15:53)
[2017-08-12] MEDS: Acetaminophen 325 MG TABLET PO PRN
--- NOTE | 2017-08-12 07:05 | Discharge Summary ---
Date of Encounter: 08/12/17 Time of Encounter: 06:51 - Discharge Diagnosis (1) Urinary tract infection due to Klebsiella species Priority: Primary Status: Acute (2) Acute on chronic kidney failure Priority: Secondary Status: Resolved Comments: Patient now back at baseline. Lasix was held while admitted. It was recommended this is taken only BID 40 mg if needed. Qualifiers: Acute renal failure type: unspecified Chronic kidney disease stage: stage 4 (severe) Qualified Code(s): N17.9 - Acute kidney failure, unspecified; N18.4 - Chronic kidney disease, stage 4 (severe); N18.4 - Chronic kidney disease , stage 4 (severe); N18.4 - Chronic kidney disease, stage 4 (severe); N18.4 - Chronic kidney disease, stage 4 (severe) (3) Hypertension Priority: Secondary Status: Chronic Qualifiers: Hypertension type: essential hypertension Qualified Code(s): I10 - Essential (primary) hypertension (4) Kidney transplant recipient Priority: Secondary Status: Chronic - Discharge Medications Prescriptions: Cefuroxime PO [Ceftin] 500 mg PO Q12HR #28 tablet Levofloxacin [Levaquin] 750 mg PO DAILY #14 tablet Home Medications: Albuterol Sulfate [Albuterol Inhaler] 2 puff IH Q4HR PRN 06/11/16 [History] Allopurinol [Zyloprim 100 MG] 100 mg PO DAILY 06/11/16 [History] Aspirin 325 mg PO DAILY 06/11/16 [History] Atorvastatin Calcium [Lipitor] 80 mg PO HS 06/11/16 [History] Calcium Carbonate/Vitamin D3 [Calcium 600 + Vit D Tablet] 1 tab PO BID 06/11/16 [History] Ergocalciferol (VITAMIN D2) [Vitamin D2] 50,000 unit PO MOTH 06/11/16 [History] Ferrous Sulfate [Iron] 325 mg PO DAILY 06/11/16 [History] Furosemide [Lasix] 40 mg PO BID 06/11/16 [History] Losartan Potassium [Cozaar] 25 mg PO BID 06/11/16 [History] Metoprolol [Lopressor] 50 mg PO BID 06/11/16 [History] Mycophenolate Sodium [Myfortic] 360 mg PO BID 06/11/16 [History] Omeprazole [PriLOSEC] 40 mg PO BID 06/11/16 [History] Ondansetron HCl [Zofran] 4 mg PO Q8H PRN 06/11/16 [History] Potassium Chloride [K-Tab ER] 40 meq PO TID 06/11/16 [History] Promethazine [Phenergan] 25 mg PO Q6HR PRN 06/11/16 [History] metOLazone [Zaroxolyn] 2.5 mg PO DAILY PRN 06/11/16 [History] predniSONE [PredniSONE] 10 mg PO DAILY 11/02/16 [History] Belatacept [Nulojix] 250 mg IV QMONTH 03/31/17 [History] Docusate [Colace] 300 mg PO HS 03/31/17 [History] Spironolactone [Aldactone] 25 mg PO BID 03/31/17 [History] Cefuroxime PO [Ceftin] 500 mg PO Q12HR #28 tablet 08/12/17 [Rx] Levofloxacin [Levaquin] 750 mg PO DAILY #14 tablet 08/12/17 [Rx] Naloxone [Narcan] 0.4 mg IVP Q2MIN PRN inj 08/12/17 [Rx] Allergies/Adverse Reactions: 3 Allergy/AdvReac Type Severity Reaction Status Date / Time adhesive Allergy Rash Verified 08/09/17 09:50 clopidogrel [From Plavix] Allergy Rash Verified 08/09/17 09:50 Iodinated Contrast- Oral and Allergy Rash,Hives Verified 08/09/17 09:50 IV Dye Penicillins Allergy Rash Verified 08/09/17 09:50 plasma protein fraction Allergy Swelling Verified 08/09/17 09:50 of Lip/Tongue/Throat chloraprep Allergy Hives Uncoded 08/09/17 09:50 Date of admission: 08/09/17 20:14 Primary care physician: Lindsey Cazares, Discharging clinician: Rosemary Chin - Patient Status Disposition: Home, Self-Care Condition: Good Functional capacity at discharge: independent ambulation Overall status at discharge: patient is progressing back to baseline - Discharge Instructions Instructions: Acute Kidney Injury (DC), Urinary Tract Infection in Women (DC), Hyperkalemia (DC) Follow Up With: Lindsey Cazares MD [Primary Care Provider] - 08/15/17 9:00 am (please follow up as schedule...) - Diet and Activity Activity: increase activity as tolerated Diet: advance to your usual diet Interval History: Ms. 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 She presented to the ER because she was experiencing several days of frequency, burning, and fever.. She did contact her kidney transplant team who ordered labs for her on Sunday but advised her to go to the ER if symptoms worsened today she began to experience temperature 100.2 nausea lower abdominal pain vomiting 2. She denies any hematuria or flank pain. Previous urine culture in June came back positive for Klebsiella. Urinalysis indicative of UTI she was given Rocephin which was sensitive to previous culture and blood cultures were obtained. She has been admitted for further workup and evaluation. Hospital course: CT abdomen and pelvis was done and showed no acute findings, did show moderate bilateral renal cortical atrophy. Her initial creatinine was 3.12 on arrival. Her baseline is usually around 2. She takes Lasix 40 mg twice a day at home, as well as losartan. There were both held, and she was given IV fluid for hydration. Probably was consulted. All medications were renally dosed. She was started on Rocephin since the Klebsiella culture grew was sensitive. She remained afebrile. Her renal function returned to baseline, and urinary symptoms resolved after 2 days. She was kept an extra day to receive additional an additional dose Rocephin. She was discharged home with prescription for Ceftin and Levaquin for 14 days. - Time Spent with Patient Total time spent providing and/or coordinating discharge services: - Constitutional Vitals: Temp Pulse Resp BP Pulse Ox 98.3 F 78 16 155/86 96 08/12/17 05:08 08/12/17 05:08 08/12/17 05:08 08/12/17 05:08 08/12/17 05:08 General appearance: Present: A&O X 3, answers questions appropriately Exam: Neck: Present: no JVD, no thyromegaly, no carotid bruit, supple Respiratory: Present: no kyphosis, no scoliosis Cardiology: Present: no murmurs, no rub, no gallops, no edema, regular rate, regular rhythm, normal S1, normal S2 Gastrointestinal: Present: normoactive bowel sounds, no tenderness Integumentary: Present: no rash, warm and dry Neurologic: Present: no focal deficit, no asterixis, alert and oriented x3, reflexes 2+ and symmetric, gait normal, strength 5/5 Musculoskeletal: Present: no deformities, no erythema, no cyanosis, no clubbing Psychiatric: Present: mood/affect appropriate, cooperative
[2017-08-12 07:46] VITALS: BP 152/96
[2017-08-12 08:24] LABS: Basophils % 0.7 %; Eosinophils # 0.1 K/mcL (0.0-0.6); Eosinophils % 3.3 %; Hematocrit 28.2 % (35.3-44.9); Immature Granulocytes % 2.1 % (0-4); Lymphocytes % 24.4 %; Mean Corpuscular HGB Conc 31.9 g/dL (31.6-35.5); Mean Corpuscular Hemoglobin 28.7 pg (28.0-33.3); Mean Corpuscular Volume 89.8 fL (83.0-100.0); Mean Platelet Volume 11.5 fL (9.4-12.4); Monocytes # 0.5 K/mcL (0.0-1.3); Monocytes % 10.8 %; Neutrophils # 2.5 K/mcL (1.6-8.9); Platelet Count 149 K/mcL (140-400); Red Blood Count 3.14 M/mcL (3.82-4.97); Red Cell Distribution Width 14.7 % (11.5-14.5); Segmented Neutrophils % 58.7 %
[2017-08-12 09:28] LABS: Bilirubin,Urine Negative (Negative); Blood,Urine Small (Negative); Clarity,Urine Clear (Clear); Color,Urine Yellow (Yellow); Glucose,Urine (UA) Normal (Normal); Ketones,Urine Negative (Negative); Leukocyte Esterase,Urine Negative (Negative); Nitrite,Urine Negative (Negative); Protein,Urine >=300 mg/dL (Neg-Trace); Specific Gravity,Urine 1.013 (1.010-1.025); Urobilinogen,Urine Normal (Normal)
[2017-08-12 09:30] LABS: Bacteria,Urine None Seen per hpf (None-Few); Hyaline Casts,Urine None Seen per lpf (None-Few); Squamous Epithelial Cell,Urine Many per lpf (None-Few)
[2017-08-12] MEDS: predniSONE 10 MG TABLET PO SCH (10:18)
[2017-08-12] MEDS: Aspirin 325 MG TABLET PO SCH (10:18)
[2017-08-12] MEDS: Mycophenolate Sodium (DR) 180 MG TABLET.DR PO SCH (10:18)
[2017-08-12] MEDS: Cyanocobalamin (B-12) 1,000 MCG TABLET PO SCH (10:18)
[2017-08-12] MEDS: Cholecalciferol (D-3) 1,000 UNIT TABLET PO SCH (10:18)
[2017-08-12 10:39] LABS: Potassium 4.1 mEq/L (3.5-4.5)
[2017-08-12] MEDS ORDERED: FLUARIX QUAD 2017-18 36MOS UP/PF 0.5 ML SYRINGE IM ONE (11:03)
--- NOTE | 2017-08-12 11:11 | Nephrology Progress Note ---
Date of Encounter: 08/12/17 Time of Encounter: 11:10 - Assessment and Plan (1) Acute on chronic kidney failure Current Visit: Yes Status: Acute Patient with MARINA on CKD that seems to be secondary to UTI and possibly a contribution of dehydration. Her renal function has improved with treatment of her urinary tract infection and hydration. Her creatinine is back to baseline and she should be safe for outpatient monitoring of her renal function. I recommend checking a BMP in about 2 weeks and have her follow-up with Dr. Bruce in 4-6 weeks. Avoid nephrotoxins and adjust the dictation for renal function. 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 This can be monitored on an outpatient basis. Qualifiers: Acute renal failure type: unspecified Chronic kidney disease stage: unspecified stage Qualified Code(s): N17.9 - Acute kidney failure, unspecified ; N18.9 - Chronic kidney disease, unspecified; N18.9 - Chronic kidney disease, unspecified (2) Anemia Current Visit: Yes Status: Acute Patient has iron deficiency anemia and is on oral iron. She reports that she has been on oral iron since her transplant. She could benefit from intravenous iron which she has had before. I recommend waiting until her urinary tract infection is cleared and starting IV iron after that. Consider venofer 500mg ivpb on day 1 and day 14. Start the 1st dose in 3-4 weeks. Her vitamin B12 is on the low side so I recommend starting cyanocobalamin. Qualifiers: Qualified Code(s): D64.9 - Anemia, unspecified (3) Urinary tract infection due to Klebsiella species Current Visit: Yes Status: Acute Patient with UTI/polynephritis and a history of renal transplant. She has had multiple episodes of UTI/pyelonephritis. She seems to have improved with current treatment and is currently asymptomatic, without leukocytosis or fever. I recommend that she be discharged with 2 weeks of antibiotic coverage. (4) Hypomagnesemia Current Visit: Yes Status: Acute Replace as needed. (5) Renal transplant recipient Current Visit: No Status: Acute Continue her antirejection medications. Subjective Principal diagnosis: Acute on chronic kidney disease Interval history: Patient seen. No new complaints. She feels better and denies chills. Objective - Vital Signs Vital signs: Vital Signs Temp Pulse Resp BP Pulse Ox 08/12/17 07:44 98.4 F 61 16 152/96 97 10/15/17 05:08 98.3 F 78 16 155/86 96 08/11/17 23:23 98.8 F 68 16 155/99 97 08/11/17 19:18 98.2 F 70 18 163/89 97 08/11/17 16:25 98.5 F 70 17 166/89 99 08/11/17 12:23 99.1 F 67 16 140/86 98 Intake and Output 08/11/17 08/12/17 08/12/17 23:59 07:59 15:59 Intake Total 360 / 360 Balance 360 / 360 Intake: Oral 360 / 360 Other: Meal Dinner Breakfast Percent of Meal Consumed 100% 100% Weight 105.868 kg Patient Weight 08/12/17 23:59 Weight 105.868 kg - General Appearance General appearance: Present: well-developed, well-nourished EENT: Present: ATNC Additional Comments: Respirations are unlabored. Cardiology: Present: regular rate Neurologic: Present: alert and oriented x3 Psychiatric: Present: mood/affect appropriate - Lab 08/12/17 07:44 08/12/17 07:44 Most recent lab results Calcium 8.0 mg/dL (8.6-10.8) L 08/12/17 07:44 Magnesium 1.5 mg/dL (1.6-2.6) L 08/10/17 04:19 Urine Creatinine 62 mg/dL 08/09/17 08:55 Consult Discharge Plan - Plan Instructions: Acute Kidney Injury (DC), Urinary Tract Infection in Women (DC), Hyperkalemia (DC) Referrals: Lindsey Cazares MD [Primary Care Provider] - 08/15/17 9:00 am (please follow up as schedule...) Prescriptions: Cefuroxime PO [Ceftin] 500 mg PO Q12HR #28 tablet Levofloxacin [Levaquin] 750 mg PO DAILY #14 tablet
[2017-08-12 12:13] LABS: Protein/Creatinine Ratio,Urine 7.03 mg/mg (0-0.20)
== END 2017-08-12 11:53 | disposition home or self-care (01) | DRG 690 ==
LOC: 2ANU 09:49 → EMEROO 09:49 → 2ANU 13:47
PROVIDERS: ADMIT Student in an Organized Health Care Education/Training Program; ATTEND Student in an Organized Health Care Education/Training Program

== ENCOUNTER 2019-04-20 10:23 | Inpatient (IN) ==
[2019-04-20] MEDS ORDERED: 0.9 % Sodium Chloride 1,000 ML IVC ONE ×2 (10:28→12:16)
[2019-04-20] MEDS ORDERED: cefTRIAXone 1,000 MG in Water for inj. (sterile) 10 ML IVP ONE (10:28)
[2019-04-20] MEDS ORDERED: *HR* Promethazine 25 MG/ML VIAL IVP ONE (10:39)
[2019-04-20] MEDS ORDERED: *HR* FentaNYL (PF) 100 MCG/2 ML VIAL IVP ONE (10:39)
--- NOTE | 2019-04-20 10:39 | Emergency Department Note ---
Disposition Clinical Impression: UTI (urinary tract infection) Qualifiers: Urinary tract infection type: acute cystitis Hematuria presence: with hematuria Qualified Code(s): N30.01 - Acute cystitis with hematuria Sepsis Qualifiers: Sepsis type: sepsis due to unspecified organism Qualified Code(s): A41.9 - Sepsis, unspecified organism Disposition: Admitted As Inpatient Condition: Fair Referrals: Jamison Reid MD [Primary Care Provider] - Forms: ED Satisfaction Letter Time of Disposition: 12:16 Fever HPI - General Chief Complaint: ED Fever Stated Complaint: uti/fever/vomiting Time Seen by Provider: 04/20/19 10:27 Source: patient, family Limitations: no limitations Nursing Notes Reviewed: Yes Vital Signs Reviewed: Yes - History of Present Illness HPI Narrative: Patient is a 48-year-old female presenting with fever. Patient with known history of right renal transplant, at [facility], follows with Dr. Holden with nephrology. Patient was seen yesterday in the ER, the point in time she was diagnosed with urinary tract infection and with shared decision-making patient was discharged with fosfomycin and to return if any symptoms worsen. Patient states that her initial symptoms started proximally 3-4 days ago, with symptoms of burning with urination and frequency, she also has chronic hematuria which she does not believe to be significant change. She describes diffuse suprapubic abdominal pain. Has had fevers overnight and throughout the past few days, with MAXIMUM TEMPERATURE of 102 Fahrenheit, she is also had nausea with vomiting. No change in stool. No chest pain or shortness of breath. - Related Data Home Medications Medication Instructions Recorded Confirmed Albuterol Sulfate [Albuterol 2 puff IH Q4HR PRN 06/11/16 12/13/18 Inhaler] Allopurinol [Zyloprim 100 MG] 100 mg PO DAILY 06/11/16 12/13/18 Aspirin 325 mg PO DAILY 06/11/16 12/13/18 Atorvastatin Calcium [Lipitor] 80 mg PO HS 06/11/16 12/13/18 Calcium Carbonate/Vitamin D3 1 tab PO BID 06/11/16 12/13/18 [Calcium 600 + Vit D Tablet] Ergocalciferol (VITAMIN D2) 50,000 unit PO MOTH 06/11/16 12/13/18 [Vitamin D2] Ferrous Sulfate [Iron] 325 mg PO DAILY 06/11/16 12/13/18 Furosemide [Lasix] 40 mg PO BID 06/11/16 12/13/18 Losartan Potassium [Cozaar] 50 mg PO BID 06/11/16 12/13/18 Metoprolol [Lopressor] 50 mg PO BID 06/11/16 12/13/18 Mycophenolate Sodium [Myfortic] 360 mg PO BID 06/11/16 12/13/18 Omeprazole [PriLOSEC] 40 mg PO BID 06/11/16 12/13/18 Ondansetron HCl [Zofran] 4 mg PO Q8H PRN 06/11/16 12/13/18 Potassium Chloride [K-Tab ER] 40 meq PO DAILY 06/11/16 12/13/18 Promethazine [Phenergan] 25 mg PO Q6HR PRN 06/11/16 12/13/18 metOLazone [Zaroxolyn] 2.5 mg PO DAILY PRN 06/11/16 12/13/18 predniSONE [PredniSONE] 10 mg PO DAILY 11/02/16 12/13/18 Docusate [Colace] 300 mg PO HS 03/31/17 12/13/18 Spironolactone [Aldactone] 25 mg PO BID 03/31/17 12/13/18 Previous Rx's Medication Instructions Recorded Fosfomycin Tromethamine [Monurol] 3 gm PO Q1-2D #3 packet 04/19/19 Allergies Allergy/AdvReac Type Severity Reaction Status Date / Time adhesive Allergy Rash Verified 04/20/19 10:24 clopidogrel [From Plavix] Allergy Rash Verified 04/20/19 10:24 Iodinated Contrast- Oral and Allergy Rash,Hives Verified 04/20/19 10:24 IV Dye Penicillins Allergy Rash Verified 04/20/19 10:24 plasma protein fraction Allergy Swelling Verified 04/20/19 10:24 of Lip/Tongue/Throat chloraprep Allergy Hives Uncoded 04/20/19 10:24 All systems ED: reviewed and negative except as stated. Review of Systems: As Per HPI Constitutional: Reports: fever, chills ENT ED: Denies: congestion Cardiovascular: Denies: chest pain, palpitations, dyspnea on exertion, syncope Respiratory: Denies: cough, dyspnea, wheezes Gastrointestinal: Reports: abdominal pain, nausea, vomiting. Denies: diarrhea, hematemesis, melena, hematochezia Genitourinary: Reports: urgency, dysuria, frequency, hematuria Musculoskeletal: Denies: back pain Integumentary: Denies: rash Neurological: Denies: headache, weakness, confusion Endocrine: Reports: fatigue Fever PMH - Past Medical History Medical history: Reports: GERD, hyperlipidemia, hypertension, renal disease Surgical history: Reports: cholecystectomy, orthopedic, other, other Psychiatric history: Reports: no psych history - Social History Smoking Status: Never smoker Alcohol use: Reports: none Drug use: Reports: none Physical Exam - General Limitations: no limitations General appearance: alert, in no apparent distress, other (Patient overall all appears unwell) - Head Head exam: atraumatic, normocephalic, normal inspection - Eye Eye exam: Present: normal appearance, PERRL, EOMI - ENT ENT exam: mucous membranes dry - Neck Neck exam: Present: normal inspection, full ROM, trachea midline - Chest Chest inspection: Present: normal inspection, symmetric chest wall rise - Respiratory Respiratory exam: Present: normal lung sounds bilaterally - Cardiovascular Cardiovascular exam: Present: normal rhythm, tachycardia - Abdominal Exam Abdominal exam: Present: soft, Non-Tender. Absent: tenderness, distention, gu arding, rebound, rigidity - Extremities Exam Extremities exam: Present: normal inspection, full ROM. Absent: tenderness, pedal edema - Back Exam Back exam: Present: normal inspection - Neurological Exam Neurological exam: Present: alert - Psychiatric Psychiatric exam: Present: normal affect, normal mood - Skin Skin exam: Present: warm, intact, diaphoresis. Absent: rash Course Vital Signs Temperature 102.3 F H 04/20/19 10:24 Pulse Rate 118 04/20/19 10:24 Respiratory Rate 16 04/20/19 10:24 Blood Pressure 124/88 04/20/19 10:24 O2 Sat by Pulse Oximetry 97 04/20/19 10:24 Temperature 102.3 F H 04/20/19 10:24 Pulse Rate 92 04/20/19 11:48 Respiratory Rate 18 04/20/19 11:48 Blood Pressure 148/83 04/20/19 11:48 O2 Sat by Pulse Oximetry 94 04/20/19 11:48 Oxygen Delivery Oxygen Delivery Room Air Fever - MDM Narrative Medical decision making narrative: Patient is a 48-year-old female presenting with fever. Patient with known history of renal transplant by [facility]. Patient is followed by nephrology. On arrival, patient appears unwell, she is diaphoretic, tachycardic and febrile. Initially blood cultures as well as lactic were performed. Patient was given a liter of fluids. Patient was seen 3 days ago with a urinalysis performed, and cultured, this does appear sensitive to Rocephin, this will be started. Sacral patient was seen in the ER, that point in time she was given a dose of fosfomycin and discharged home. Symptoms progressed overnight. CBC shows no leukocytosis, BMP shows slight elevation of serum creatinine from patient's baseline, bicarbonate is low at 12, patient has been this low in the past. No further significant changes noted. Chest x-ray shows no acute opacification or sign of pneumonia. Urinalysis has been reperformed and will be cultured. We did speak with nephrology, Dr. Holden regarding this patient, agrees for admission and consult has been placed. Patient at this point in time is been admitted for suspected urosepsis. Patient agrees with disposition. - Medical Records Medical records reviewed: Yes I reviewed the patient's medical records. - Lab Data Lab results reviewed: Yes I reviewed the patient's lab results. Result diagrams: 04/20/19 10:45 04/20/19 12:06 Lab Results 04/20/19 04/20/19 04/20/19 Range/Units 10:45 10:45 10:45 WBC 5.5 (4.3-11.1) K/mcL RBC 3.68 L (3.82-4.97) M/mcL Hgb 10.3 L (11.5-15.4) g/dL Hct 33.7 L (35.3-44.9) % MCV 91.6 (83.0-100.0) fL MCH 28.0 (28.0-33.3) pg MCHC 30.6 L (31.6-35.5) g/dL RDW 16.1 H (11.5-14.5) % Plt Count 120 L (140-400) K/mcL MPV 12.4 (9.4-12.4) fL Seg Neutrophils % 74.0 % Band Neutrophils % 8.0 H (0-4) % Lymphocytes % 8.0 % Monocytes % 10.0 % Neutrophils # 4.5 (1.6-8.9) K/mcL Lymphocytes # 0.4 L (0.6-4.6) K/mcL Monocytes # 0.6 (0.0-1.3) K/mcL Platelet Estimate Slight Decrease L (Normal) PT 13.2 H (9.4-12.1) Seconds INR 1.2 APTT 25.8 L (26.0-36.0) Seconds Sodium Cancelled Potassium Cancelled Chloride Cancelled Carbon Dioxide Cancelled BUN Cancelled Creatinine Cancelled Est GFR ( Amer) Cancelled Est GFR (Non-Af Amer) Cancelled BUN/Creatinine Ratio Cancelled Glucose Cancelled Calculated Osmolality Cancelled Lactic Acid (0.5-2.2) mmol/L Calcium Cancelled Phosphorus Cancelled Magnesium 1.5 L (1.6-2.6) mg/dL Total Bilirubin Cancelled Direct Bilirubin Cancelled Indirect Bilirubin Cancelled AST Cancelled ALT Cancelled Alkaline Phosphatase Cancelled Troponin I < 0.03 (< 0.04) ng/mL Serum Total Protein Cancelled Albumin Cancelled Globulin Cancelled Albumin/Globulin Ratio Cancelled Urine Color (Yellow) Urine Clarity (Clear) Urine pH (5.0-8.0) pH Units Ur Specific [place] (1.010-1.025) Urine Protein (Neg-Trace) mg/dL Urine Glucose (UA) (Normal) mg/dL Urine Ketones (Negative) mg/dL Urine Blood (Negative) Urine Nitrite (Negative) Urine Bilirubin (Negative) Urine Urobilinogen (Normal) mg/dL Ur Leukocyte Esterase (Negative) Urine Microscopic RBC (0-3) per hpf Urine Microscopic WBC (0-3) per hpf Ur Squamous Epith Cells (None-Few) per lpf Urine Bacteria (None-Few) per hpf Hyaline Casts (None-Few) per lpf Ur Culture Indicated? (NO) Specimen Rejected 04/20/19 04/20/19 04/20/19 Range/Units 10:45 11:34 11:42 WBC (4.3-11.1) K/mcL RBC (3.82-4.97) M/mcL Hgb (11.5-15.4) g/dL Hct (35.3-44.9) % MCV (83.0-100.0) fL MCH (28.0-33.3) pg MCHC (31.6-35.5) g/dL RDW (11.5-14.5) % Plt Count (140-400) K/mcL MPV (9.4-12.4) fL Seg Neutrophils % % Band Neutrophils % (0-4) % Lymphocytes % % Monocytes % % Neutrophils # (1.6-8.9) K/mcL Lymphocytes # (0.6-4.6) K/mcL Monocytes # (0.0-1.3) K/mcL Platelet Estimate (Normal) PT (9.4-12.1) Seconds INR APTT (26.0-36.0) Seconds Sodium Potassium Chloride Carbon Dioxide BUN Creatinine Est GFR ( Amer) Est GFR (Non-Af Amer) BUN/Creatinine Ratio Glucose Calculated Osmolality Lactic Acid 0.8 (0.5-2.2) mmol/L Calcium Phosphorus Magnesium (1.6-2.6) mg/dL Total Bilirubin Direct Bilirubin Indirect Bilirubin AST ALT Alkaline Phosphatase Troponin I (< 0.04) ng/mL Serum Total Protein Albumin Globulin Albumin/Globulin Ratio Urine Color Yellow (Yellow) Urine Clarity Cloudy A (Clear) Urine pH 6.0 (5.0-8.0) pH Units Ur Specific [place] 1.006 L (1.010-1.025) Urine Protein >=300 H (Neg-Trace) mg/dL Urine Glucose (UA) Normal (Normal) mg/dL Urine Ketones Negative (Negative) mg/dL Urine Blood Moderate H (Negative) Urine Nitrite Negative (Negative) Urine Bilirubin Negative (Negative) Urine Urobilinogen Normal (Normal) mg/dL Ur Leukocyte Esterase Moderate H (Negative) Urine Microscopic RBC 5-15 H (0-3) per hpf Urine Microscopic WBC TNTC H (0-3) per hpf Ur Squamous Epith Cells Moderate H (None-Few) per lpf Urine Bacteria None Seen (None-Few) per hpf Hyaline Casts None Seen (None-Few) per lpf Ur Culture Indicated? YES A (NO) Specimen Rejected Hemolyzed 04/20/19 Range/Units 12:06 WBC (4.3-11.1) K/mcL RBC (3.82-4.97) M/mcL Hgb (11.5-15.4) g/dL Hct (35.3-44.9) % MCV (83.0-100.0) fL MCH (28.0-33.3) pg MCHC (31.6-35.5) g/dL RDW (11.5-14.5) % Plt Count (140-400) K/mcL MPV (9.4-12.4) fL Seg Neutrophils % % Band Neutrophils % (0-4) % Lymphocytes % % Monocytes % % Neutrophils # (1.6-8.9) K/mcL Lymphocytes # (0.6-4.6) K/mcL Monocytes # (0.0-1.3) K/mcL Platelet Estimate (Normal) PT (9.4-12.1) Seconds INR APTT (26.0-36.0) Seconds Sodium 141 Potassium 4.0 Chloride 118 H Carbon Dioxide 12 L BUN 69 H Creatinine 4.20 H Est GFR ( Amer) 14 L Est GFR (Non-Af Amer) 11 L BUN/Creatinine Ratio 16 Glucose 93 Calculated Osmolality 312 H Lactic Acid (0.5-2.2) mmol/L Calcium 7.5 L Phosphorus 3.8 Magnesium (1.6-2.6) mg/dL Total Bilirubin 0.3 Direct Bilirubin 0.0 Indirect Bilirubin 0.3 AST 11 L ALT 8 Alkaline Phosphatase 27 L Troponin I (< 0.04) ng/mL Serum Total Protein 5.0 L Albumin 3.1 L Globulin 1.9 L Albumin/Globulin Ratio 1.6 Urine Color (Yellow) Urine Clarity (Clear) Urine pH (5.0-8.0) pH Units Ur Specific [place] (1.010-1.025) Urine Protein (Neg-Trace) mg/dL Urine Glucose (UA) (Normal) mg/dL Urine Ketones (Negative) mg/dL Urine Blood (Negative) Urine Nitrite (Negative) Urine Bilirubin (Negative) Urine Urobilinogen (Normal) mg/dL Ur Leukocyte Esterase (Negative) Urine Microscopic RBC (0-3) per hpf Urine Microscopic WBC (0-3) per hpf Ur Squamous Epith Cells (None-Few) per lpf Urine Bacteria (None-Few) per hpf Hyaline Casts (None-Few) per lpf Ur Culture Indicated? (NO) Specimen Rejected - Radiology Data Radiology results reviewed: Yes I reviewed the patient's radiology results. Chest X-Ray 04/20/19 10:56 IMPRESSION: No acute process. D/ / Eliazar Simmons MD / Eliazar Simmons MD Interpreting Provider: Eliazar Simmons MD - EKG Data EKG attestation: Yes I reviewed and interpreted this EKG. EKG results narrative: EKG obtained at 1036 with ventricular rate of 105, regular rhythm, normal axis, no ST segment elevation or depression. Overall sinus tachycardia. Attestation Statement - Attestation Attestation: I, Carlos Avila DO, examined this patient [id number] and my medical decision-making was reviewed with Dr. Nikolai Lundberg , Resident Physician. I agree with the documented findings, disposition and treatment plan as described except to the extent set forth below. I personally supervised and was present for the qiu/critical portions of the procedures completed by the resident documented below. Please see my progress notes for details.
--- NOTE | 2019-04-20 11:05 | Emergency Department Note ---
Disposition Clinical Impression: UTI (urinary tract infection) Qualifiers: Urinary tract infection type: acute cystitis Hematuria presence: with hematuria Qualified Code(s): N30.01 - Acute cystitis with hematuria Sepsis Qualifiers: Sepsis type: sepsis due to unspecified organism Qualified Code(s): A41.9 - Sepsis, unspecified organism Disposition: Admitted As Inpatient Condition: Fair Forms: ED Satisfaction Letter Time of Disposition: 12:54 General Adult HPI - General Chief complaint: ED Fever Stated complaint: uti/fever/vomiting Time Seen by Provider: 04/20/19 10:27 Source: patient, family Limitations: no limitations - History of Present Illness Pain Scale: 8 - Related Data Home Medications Medication Instructions Recorded Confirmed Albuterol Sulfate [Albuterol 2 puff IH Q4HR PRN 06/11/16 12/13/18 Inhaler] Allopurinol [Zyloprim 100 MG] 100 mg PO DAILY 06/11/16 12/13/18 Aspirin 325 mg PO DAILY 06/11/16 12/13/18 Atorvastatin Calcium [Lipitor] 80 mg PO HS 06/11/16 12/13/18 Calcium Carbonate/Vitamin D3 1 tab PO BID 06/11/16 12/13/18 [Calcium 600 + Vit D Tablet] Ergocalciferol (VITAMIN D2) 50,000 unit PO MOTH 06/11/16 12/13/18 [Vitamin D2] Ferrous Sulfate [Iron] 325 mg PO DAILY 06/11/16 12/13/18 Furosemide [Lasix] 40 mg PO BID 06/11/16 12/13/18 Losartan Potassium [Cozaar] 50 mg PO BID 06/11/16 12/13/18 Metoprolol [Lopressor] 50 mg PO BID 06/11/16 12/13/18 Mycophenolate Sodium [Myfortic] 360 mg PO BID 06/11/16 12/13/18 Omeprazole [PriLOSEC] 40 mg PO BID 06/11/16 12/13/18 Ondansetron HCl [Zofran] 4 mg PO Q8H PRN 06/11/16 12/13/18 Potassium Chloride [K-Tab ER] 40 meq PO DAILY 06/11/16 12/13/18 Promethazine [Phenergan] 25 mg PO Q6HR PRN 06/11/16 12/13/18 metOLazone [Zaroxolyn] 2.5 mg PO DAILY PRN 06/11/16 12/13/18 predniSONE [PredniSONE] 10 mg PO DAILY 11/02/16 12/13/18 Docusate [Colace] 300 mg PO HS 03/31/17 12/13/18 Spironolactone [Aldactone] 25 mg PO BID 03/31/17 12/13/18 Previous Rx's Medication Instructions Recorded Fosfomycin Tromethamine [Monurol] 3 gm PO Q1-2D #3 packet 04/19/19 Allergies Allergy/AdvReac Type Severity Reaction Status Date / Time adhesive Allergy Rash Verified 04/20/19 10:24 clopidogrel [From Plavix] Allergy Rash Verified 04/20/19 10:24 Iodinated Contrast- Oral and Allergy Rash,Hives Verified 04/20/19 10:24 IV Dye Penicillins Allergy Rash Verified 04/20/19 10:24 plasma protein fraction Allergy Swelling Verified 04/20/19 10:24 of Lip/Tongue/Throat chloraprep Allergy Hives Uncoded 04/20/19 10:24 Past Medical History - Past Medical History Medical history: Reports: GERD, hyperlipidemia, hypertension, renal disease Surgical history: Reports: cholecystectomy, orthopedic, other, other Psychiatric history: Reports: no psych history - Social History Smoking Status: Never smoker Smokeless Tobacco Status: No Alcohol use: Reports: none Drug use: Reports: none Physical Exam - General Limitations: no limitations General appearance: alert, in no apparent distress Course Vital Signs Temperature 102.3 F H 04/20/19 10:24 Pulse Rate 118 04/20/19 10:24 Respiratory Rate 16 04/20/19 10:24 Blood Pressure 124/88 04/20/19 10:24 O2 Sat by Pulse Oximetry 97 04/20/19 10:24 Temperature 102.3 F H 04/20/19 10:24 Pulse Rate 92 04/20/19 11:48 Respiratory Rate 18 04/20/19 11:48 Blood Pressure 148/83 04/20/19 11:48 O2 Sat by Pulse Oximetry 94 04/20/19 11:48 Oxygen Delivery Oxygen Delivery Room Air Medical Decision Making - Lab Data Result diagrams: 04/20/19 10:45 04/20/19 12:06 Lab Results 04/20/19 04/20/19 04/20/19 Range/Units 10:45 10:45 10:45 WBC 5.5 (4.3-11.1) K/mcL RBC 3.68 L (3.82-4.97) M/mcL Hgb 10.3 L (11.5-15.4) g/dL Hct 33.7 L (35.3-44.9) % MCV 91.6 (83.0-100.0) fL MCH 28.0 (28.0-33.3) pg MCHC 30.6 L (31.6-35.5) g/dL RDW 16.1 H (11.5-14.5) % Plt Count 120 L (140-400) K/mcL MPV 12.4 (9.4-12.4) fL Seg Neutrophils % 74.0 % Band Neutrophils % 8.0 H (0-4) % Lymphocytes % 8.0 % Monocytes % 10.0 % Neutrophils # 4.5 (1.6-8.9) K/mcL Lymphocytes # 0.4 L (0.6-4.6) K/mcL Monocytes # 0.6 (0.0-1.3) K/mcL Platelet Estimate Slight Decrease L (Normal) PT 13.2 H (9.4-12.1) Seconds INR 1.2 APTT 25.8 L (26.0-36.0) Seconds Sodium Cancelled Potassium Cancelled Chloride Cancelled Carbon Dioxide Cancelled BUN Cancelled Creatinine Cancelled Est GFR ( Amer) Cancelled Est GFR (Non-Af Amer) Cancelled BUN/Creatinine Ratio Cancelled Glucose Cancelled Calculated Osmolality Cancelled Lactic Acid (0.5-2.2) mmol/L Calcium Cancelled Phosphorus Cancelled Magnesium 1.5 L (1.6-2.6) mg/dL Total Bilirubin Cancelled Direct Bilirubin Cancelled Indirect Bilirubin Cancelled AST Cancelled ALT Cancelled Alkaline Phosphatase Cancelled Troponin I < 0.03 (< 0.04) ng/mL Serum Total Protein Cancelled Albumin Cancelled Globulin Cancelled Albumin/Globulin Ratio Cancelled Urine Color (Yellow) Urine Clarity (Clear) Urine pH (5.0-8.0) pH Units Ur Specific [place] (1.010-1.025) Urine Protein (Neg-Trace) mg/dL Urine Glucose (UA) (Normal) mg/dL Urine Ketones (Negative) mg/dL Urine Blood (Negative) Urine Nitrite (Negative) Urine Bilirubin (Negative) Urine Urobilinogen (Normal) mg/dL Ur Leukocyte Esterase (Negative) Urine Microscopic RBC (0-3) per hpf Urine Microscopic WBC (0-3) per hpf Ur Squamous Epith Cells (None-Few) per lpf Urine Bacteria (None-Few) per hpf Hyaline Casts (None-Few) per lpf Ur Culture Indicated? (NO) Specimen Rejected 04/20/19 04/20/19 04/20/19 Range/Units 10:45 11:34 11:42 WBC (4.3-11.1) K/mcL RBC (3.82-4.97) M/mcL Hgb (11.5-15.4) g/dL Hct (35.3-44.9) % MCV (83.0-100.0) fL MCH (28.0-33.3) pg MCHC (31.6-35.5) g/dL RDW (11.5-14.5) % Plt Count (140-400) K/mcL MPV (9.4-12.4) fL Seg Neutrophils % % Band Neutrophils % (0-4) % Lymphocytes % % Monocytes % % Neutrophils # (1.6-8.9) K/mcL Lymphocytes # (0.6-4.6) K/mcL Monocytes # (0.0-1.3) K/mcL Platelet Estimate (Normal) PT (9.4-12.1) Seconds INR APTT (26.0-36.0) Seconds Sodium Potassium Chloride Carbon Dioxide BUN Creatinine Est GFR ( Amer) Est GFR (Non-Af Amer) BUN/Creatinine Ratio Glucose Calculated Osmolality Lactic Acid 0.8 (0.5-2.2) mmol/L Calcium Phosphorus Magnesium (1.6-2.6) mg/dL Total Bilirubin Direct Bilirubin Indirect Bilirubin AST ALT Alkaline Phosphatase Troponin I (< 0.04) ng/mL Serum Total Protein Albumin Globulin Albumin/Globulin Ratio Urine Color Yellow (Yellow) Urine Clarity Cloudy A (Clear) Urine pH 6.0 (5.0-8.0) pH Units Ur Specific [place] 1.006 L (1.010-1.025) Urine Protein >=300 H (Neg-Trace) mg/dL Urine Glucose (UA) Normal (Normal) mg/dL Urine Ketones Negative (Negative) mg/dL Urine Blood Moderate H (Negative) Urine Nitrite Negative (Negative) Urine Bilirubin Negative (Negative) Urine Urobilinogen Normal (Normal) mg/dL Ur Leukocyte Esterase Moderate H (Negative) Urine Microscopic RBC 5-15 H (0-3) per hpf Urine Microscopic WBC TNTC H (0-3) per hpf Ur Squamous Epith Cells Moderate H (None-Few) per lpf Urine Bacteria None Seen (None-Few) per hpf Hyaline Casts None Seen (None-Few) per lpf Ur Culture Indicated? YES A (NO) Specimen Rejected Hemolyzed 04/20/19 Range/Units 12:06 WBC (4.3-11.1) K/mcL RBC (3.82-4.97) M/mcL Hgb (11.5-15.4) g/dL Hct (35.3-44.9) % MCV (83.0-100.0) fL MCH (28.0-33.3) pg MCHC (31.6-35.5) g/dL RDW (11.5-14.5) % Plt Count (140-400) K/mcL MPV (9.4-12.4) fL Seg Neutrophils % % Band Neutrophils % (0-4) % Lymphocytes % % Monocytes % % Neutrophils # (1.6-8.9) K/mcL Lymphocytes # (0.6-4.6) K/mcL Monocytes # (0.0-1.3) K/mcL Platelet Estimate (Normal) PT (9.4-12.1) Seconds INR APTT (26.0-36.0) Seconds Sodium 141 Potassium 4.0 Chloride 118 H Carbon Dioxide 12 L BUN 69 H Creatinine 4.20 H Est GFR ( Amer) 14 L Est GFR (Non-Af Amer) 11 L BUN/Creatinine Ratio 16 Glucose 93 Calculated Osmolality 312 H Lactic Acid (0.5-2.2) mmol/L Calcium 7.5 L Phosphorus 3.8 Magnesium (1.6-2.6) mg/dL Total Bilirubin 0.3 Direct Bilirubin 0.0 Indirect Bilirubin 0.3 AST 11 L ALT 8 Alkaline Phosphatase 27 L Troponin I (< 0.04) ng/mL Serum Total Protein 5.0 L Albumin 3.1 L Globulin 1.9 L Albumin/Globulin Ratio 1.6 Urine Color (Yellow) Urine Clarity (Clear) Urine pH (5.0-8.0) pH Units Ur Specific [place] (1.010-1.025) Urine Protein (Neg-Trace) mg/dL Urine Glucose (UA) (Normal) mg/dL Urine Ketones (Negative) mg/dL Urine Blood (Negative) Urine Nitrite (Negative) Urine Bilirubin (Negative) Urine Urobilinogen (Normal) mg/dL Ur Leukocyte Esterase (Negative) Urine Microscopic RBC (0-3) per hpf Urine Microscopic WBC (0-3) per hpf Ur Squamous Epith Cells (None-Few) per lpf Urine Bacteria (None-Few) per hpf Hyaline Casts (None-Few) per lpf Ur Culture Indicated? (NO) Specimen Rejected Attestation Statement - Attestation Attestation: I, Carlos Avila DO, examined this patient [id number] and my medical decision-making was reviewed with Dr. Nikolai Lundberg , Resident Physician. I agree with the documented findings, disposition and treatment plan as described except to the extent set forth below. I personally supervised and was present for the qiu/critical portions of the procedures completed by the resident documented below. Please see my progress notes for details. 48-year-old female presents emergency room with progressive fever and chills overnight. She has not been able to keep anything down her today. Patient is a long-standing history of chronic urinary tract infections secondary to renal transplant. Patient was seen yesterday and determination was made for her to go home on fosfomycin. She took the single dose yesterday but then does not know the keep anything down since then. Patient denies any active chest pain or shortness of breath. She has had nausea and vomiting. Denies any nausea and diarrhea. Currently denying any chills but does have a documented fever. Patient's heart rate and temperature addressed and reviewed in triage. Both are elevated. Patient appears to have concern for septic-like presentation of this time. Fluids nausea medication pain medication antibiotics as well as CBC chemistry electrolytes lactic acid and urinalysis will be collected this time. Chest x-ray will be ordered and EKG will be reviewed. Disposition to be determined once full workup and treatment course I been established. Patient is well known to myself considering he did take care of her less than one month ago for similar issues. She appears to be at her baseline mental status. Oropharynx is patent mucous membranes are dry. Lungs are clear heart is regul ar. She has no stridor no trismus. She has full range of motion the neck. Abdomen is soft but no point tenderness guarding or rigidity. She is scheduled at [facility] to have renal transplant again completed secondary to tumor on her [place] right kidney. Patient is not currently on dialysis. Patient will be treated appropriately here for infectious etiology in the disposition determined. See detailed documentation the physical exam, medical intervention, medical decision-making and disposition in the resident physician's note. No critical care provider the patient's treatment course at this time. EKG is reviewed by myself in documented in the resident physician's chart. [id number] Patient feels much better. She does not show any acute signs of septic shock. Patient has been appropriately treated with Rocephin. Fosfomycin has not required to be given for another 24 hours. Patient is requesting to be admitted at this facility. She will be monitoring emergency room. The hospitalist Dr. wolf has reviewed the case. We also discussed the conversation with Dr. Holden. Dr. Alaina Bruce May no other recommendations outside to stop the fosfomycin to continue with Rocephin considering the culture collected 3 days ago shows Pseudomonas that is sensitive to Rocephin. No other recommendations or concerns at this time. Patient will be monitored here in the emergency department until the admission process is completed. Consultation will be placed for nephrology. Patient otherwise clinically stable. Vital signs are responded appropriately.
[2019-04-20 11:10] LABS: Hematocrit 33.7 % (35.3-44.9); Hemoglobin 10.3 g/dL (11.5-15.4); Lymphocytes # 0.4 K/mcL (0.6-4.6); Mean Corpuscular HGB Conc 30.6 g/dL (31.6-35.5); Mean Corpuscular Volume 91.6 fL (83.0-100.0); Mean Platelet Volume 12.4 fL (9.4-12.4); Platelet Count 120 K/mcL (140-400); Red Blood Count 3.68 M/mcL (3.82-4.97); Red Cell Distribution Width 16.1 % (11.5-14.5); White Blood Count 5.5 K/mcL (4.3-11.1)
[2019-04-20 11:17] LABS: INR 1.2; Prothrombin Time 13.2 Seconds (9.4-12.1)
[2019-04-20 11:20] LABS: Activated Partial Thrombo Time 25.8 Seconds (26.0-36.0)
[2019-04-20 11:27] LABS: Monocytes # 0.6 K/mcL (0.0-1.3); Neutrophils # 4.5 K/mcL (1.6-8.9); Platelet Estimate Slight Decrease (Normal)
[2019-04-20 11:39] LABS: Troponin I < 0.03 ng/mL (< 0.04)
[2019-04-20 11:42] LABS: Magnesium 1.5 mg/dL (1.6-2.6)
[2019-04-20 11:45] LABS: Bilirubin,Urine Negative (Negative); Blood,Urine Moderate (Negative); Clarity,Urine Cloudy (Clear); Color,Urine Yellow (Yellow); Glucose,Urine (UA) Normal (Normal); Ketones,Urine Negative (Negative); Leukocyte Esterase,Urine Moderate (Negative); Nitrite,Urine Negative (Negative); Protein,Urine >=300 mg/dL (Neg-Trace); Specific Gravity,Urine 1.006 (1.010-1.025); Urobilinogen,Urine Normal (Normal)
[2019-04-20 11:47] LABS: Bacteria,Urine None Seen per hpf (None-Few); Hyaline Casts,Urine None Seen per lpf (None-Few); Squamous Epithelial Cell,Urine Moderate per lpf (None-Few); WBC,Urine TNTC per hpf (0-3)
[2019-04-20 12:30] LABS: Albumin 3.1 g/dL (3.5-5.7); Albumin/Globulin Ratio 1.6 (1.1-2.2); Bilirubin,Indirect 0.3 mg/dL (0.0-1.2); Bilirubin,Total 0.3 mg/dL (0.3-1.0); Calcium 7.5 mg/dL (8.6-10.3); Globulin 1.9 g/dL (2.4-3.5); Phosphorous 3.8 mg/dL (2.7-4.5)
[2019-04-20] MEDS ORDERED: Naloxone 0.4 MG/ML INJ IVP PRN (13:28)
--- NOTE | 2019-04-20 13:35 | Internal Med History&Physical ---
Date of Encounter: 04/20/19 Time of Encounter: 14:30 Internal Medicine - H&P: HPI Chief complaint: fever Admitted From: Emergency Dept Plans for Post Hospital Care: Home History of present illness: Ms. Maurer is a 48 year old female with hx of renal transplant and multiple infections presented to ED with worsening fever and chills. She had been evaluated yesterday and given PO abx. She is now admitted for further e valuation and treatment. Ms Maurer has prior hx of renal transplant. She has had recurrent infections in the past and was in ED yesterday with similar symptoms. She was started on Fosfomycin PO and discharged. She was nauseated and unable to keep anything down yesterday. Fever and chills developed overnight. Recent culture shows Klebsiella. She was treated with Rocephin in ED. At this time she is feeling achy and weak. Family is in room with her. 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 GASTRIC ULCER. DIZZINESS. KIDNEY TRANSPLANT. KIDNEY STONES. ANEMIA HISTORY Psychiatric history: no psych history - Past Surgical History Surgical History: cholecystectomy, orthopedic, other, other Additional surgical history: kidney transplant, Back/Neck fusion, hemorrhoid surgery x 2. RIGHT ARM FISTULA. LOW BACK DISCECTOMY - Social History Smoking Status: Never smoker Smokeless Tobacco Status: No Alcohol use: none Drug use: none Current living situation: With Family - Family History Father Living Status: Still Living Hx Family Cardiac Disorders: Yes (HTN) Hx Family Cancer: Yes (prostate) Hx Family Endocrine Disorder: Yes (diabetes) Mother Living Status: Still Living Hx Family Cardiac Disorders: Yes (htn) Internal Medicine - H&P: Meds Albuterol Sulfate [Albuterol Inhaler] 2 puff IH Q4HR PRN 06/11/16 [History] Allopurinol [Zyloprim 100 MG] 100 mg PO DAILY 06/11/16 [History] Aspirin 325 mg PO DAILY 06/11/16 [History] Atorvastatin Calcium [Lipitor] 80 mg PO HS 06/11/16 [History] Calcium Carbonate/Vitamin D3 [Calcium 600 + Vit D Tablet] 1 tab PO BID 06/11/16 [History] Ergocalciferol (VITAMIN D2) [Vitamin D2] 50,000 unit PO MOTH 06/11/16 [History] Ferrous Sulfate [Iron] 325 mg PO DAILY 06/11/16 [History] Furosemide [Lasix] 40 mg PO BID PRN 06/11/16 [History] Losartan Potassium [Cozaar] 50 mg PO BID 06/11/16 [History] Metoprolol [Lopressor] 50 mg PO BID 06/11/16 [History] Mycophenolate Sodium [Myfortic] 360 mg PO BID 06/11/16 [History] Omeprazole [PriLOSEC] 20 mg PO BID 06/11/16 [History] Ondansetron HCl [Zofran] 4 mg PO Q8H PRN 06/11/16 [History] Potassium Chloride [K-Tab ER] 20 meq PO DAILY 06/11/16 [History] Promethazine [Phenergan] 25 mg PO Q6HR PRN 06/11/16 [History] metOLazone [Zaroxolyn] 2.5 mg PO DAILY PRN 06/11/16 [History] predniSONE [PredniSONE] 10 mg PO DAILY 11/02/16 [History] Docusate [Colace] 300 mg PO HS 03/31/17 [History] Spironolactone [Aldactone] 50 mg PO DAILY 03/31/17 [History] Fosfomycin Tromethamine [Monurol] 3 gm PO Q1-2D #3 packet 04/19/19 [Rx] Ascorbic Acid [Vitamin C] 1,000 mg PO BID 04/20/19 [History] Belatacept [Nulojix] 250 mg IV AD 04/20/19 [History] Cranberry Conc/C/Bacill Coag [Cranberry Tablet] 1 tab PO BID 04/20/19 [History] DiphenhydraMINE [Benadryl] 25 mg PO HS 04/20/19 [History] Allergy/AdvReac Type Severity Reaction Status Date / Time adhesive Allergy Rash Verified 04/20/19 10:24 clopidogrel [From Plavix] Allergy Rash Verified 04/20/19 10:24 Iodinated Contrast- Oral and Allergy Rash,Hives Verified 04/20/19 10:24 IV Dye Penicillins Allergy Rash Verified 04/20/19 10:24 plasma protein fraction Allergy Swelling Verified 04/20/19 10:24 of Lip/Tongue/Throat chloraprep Allergy Hives Uncoded 04/20/19 10:24 All Systems PM: A 10-system review of systems was performed and is negative for pertinent findings except as documented above in the HPI. - Constitutional Constitutional: fatigue, fever(s), malaise - EENT Eyes: no discharge, no pain Ears: no decreased hearing Nose, mouth and throat: dry mouth, no mouth pain, no sinus pain - Cardiovascular Cardiovascular ROS IM: lightheadedness, no chest pain, no dyspnea, no dyspnea on exertion - Respiratory Respiratory: no cough, no hemoptysis, no dyspnea on exertion - Gastrointestinal Gastrointestinal: abdominal pain, nausea, vomiting, no diarrhea - Genitourinary Genitourinary: dysuria, urinary frequency - Musculoskeletal Musculoskeletal ROS IM: no arthralgias, no muscle weakness - Integumentary Integumentary IM: no rash - Neurological Neurological ROS: no focal weakness, no numbness, no vertigo - Endocrine Endocrine IM: no excessive sweating - Hematologic/Lymphatic Hematologic/Lymphatic: no easy bleeding - Allergic/Immunologic Allergic/Immunologic: no throat swelling - Constitutional Vitals: Temp Pulse Resp BP Pulse Ox 102.3 F H 92 18 148/83 94 04/20/19 10:24 04/20/19 11:48 04/20/19 11:48 04/20/19 11:48 04/20/19 11:48 General appearance: Present: A&O X 3, pleasant (ill appearing) Exam: See below - Head Head exam: Present: normocephalic - Eye Eye exam: Present: EOMI, conjuntiva pink - ENT ENT exam: Present: mucous membranes dry - Neck Neck exam general surgery: Present: normal inspection. Absent: thyromegaly - Respiratory Respiratory exam: Present: CTAB. Absent: rales, rhonchi, wheezes - Cardiovascular Cardiovascular exam: Present: RRR. Absent: tachycardia - GI/Abdominal GI/Abdominal exam: Present: soft, tenderness (r lower abdomen) - Extremities Exam Extremities exam: Present: warm. Absent: tenderness - Neurological Exam Neurological exam: Present: alert, oriented X3, no focal deficits - Skin Skin exam: Present: dry, warm. Absent: rash Internal Med - H&P Results - Labs CBC & Chem 7: 04/20/19 10:45 04/20/19 12:06 Labs: Short CBC 04/20/19 Range/Units 10:45 WBC 5.5 (4.3-11.1) K/mcL Hgb 10.3 L (11.5-15.4) g/dL Hct 33.7 L (35.3-44.9) % Plt Count 120 L (140-400) K/mcL Neutrophils # 4.5 (1.6-8.9) K/mcL BMP 04/20/19 04/20/19 10:45 12:06 Sodium Cancelled 141 Potassium Cancelled 4.0 Chloride Cancelled 118 H Carbon Dioxide Cancelled 12 L BUN Cancelled 69 H Creatinine Cancelled 4.20 H Glucose Cancelled 93 Calcium Cancelled 7.5 L Cardiac Enzymes 04/20/19 Range/Units 10:45 Troponin I < 0.03 (< 0.04) ng/mL Liver Function 04/20/19 04/20/19 Range/Units 10:45 12:06 Total Bilirubin Cancelled 0.3 Direct Bilirubin Cancelled 0.0 AST Cancelled 11 L ALT Cancelled 8 Alkaline Phosphatase Cancelled 27 L Albumin Cancelled 3.1 L Urine 04/20/19 Range/Units 11:34 Urine Color Yellow (Yellow) Urine Clarity Cloudy A (Clear) Urine pH 6.0 (5.0-8.0) pH Units Ur Specific [place] 1.006 L (1.010-1.025) Urine Protein >=300 H (Neg-Trace) mg/dL Urine Glucose (UA) Normal (Normal) mg/dL - Impressions ITS Impressions Chest X-Ray 04/20/19 10:56 IMPRESSION: No acute process. D/ / Eliazar Simmons MD / Eliazar Simmons MD Interpreting Provider: Eliazar Simmons MD - Assessment and Plan (1) UTI (urinary tract infection) Current Visit: Yes Status: Acute Assessment and plan: Due to Klebsiella. Sensitive to IV Rocephin Will continue on admission. Qualifiers: Urinary tract infection type: acute cystitis Hematuria presence: with hematuria Qualified Code(s): N30.01 - Acute cystitis with hematuria (2) Kidney transplant infection Current Visit: Yes Status: Acute (3) Sepsis Current Visit: Yes Status: Acute Assessment and plan: Due to Klebsiella pneumoniae (UTI.) Admit to hospital. Fluids given in ED. Lactate normal. Had fever and tachycardia in ED Continue IV Ceftriaxone. 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 Follows at [facility]. Qualifiers: Chronic kidney disease stage: stage 4 (severe) Qualified Code(s): N18.4 - Chronic kidney disease, stage 4 (severe) (5) Anemia Current Visit: No Status: Chronic Assessment and plan: H/H appears to be at baseline. Continue to follow. Qualifiers: Anemia type: due to chronic kidney disease Chronic kidney disease stage: stage 4 (severe) Qualified Code(s): N18.4 - Chronic kidney disease, stage 4 (severe); D63.1 - Anemia in chronic kidney disease (6) Metabolic acidosis Current Visit: No Status: Chronic Assessment and plan: Defer to nephrology service. (7) Hypertension Current Visit: No Status: Chronic Assessment and plan: Controlled at this time. Continue home meds. Qualifiers: Hypertension type: essential hypertension Qualified Code(s): I10 - Essential (primary) hypertension (8) Renal transplant recipient Current Visit: No Status: Chronic Assessment and plan: chronic issue (9) Fibromuscular dysplasia Current Visit: Yes Status: Chronic (10) GERD (gastroesophageal reflux disease) Current Visit: Yes Status: Chronic Assessment and plan: Chronic issue Qualifiers: Esophagitis presence: esophagitis presence not specified Qualified Code(s): K21.9 - Gastro-esophageal reflux disease without esophagitis (11) HLD (hyperlipidemia) Current Visit: Yes Status: Chronic Assessment and plan: Chronic issue Qualifiers: Hyperlipidemia type: mixed hyperlipidemia Qualified Code(s): E78.2 - Mixed hyperlipidemia - Time Spent With Patient Total time spent is greater than 50% in coordination of care (as documented) at patient's floor/unit and/or counseling patient:
[2019-04-20] MEDS: Acetaminophen 325 MG TABLET PO PRN ×2 (17:22→20:56)
[2019-04-20] MEDS: *HR* Promethazine 25 MG/ML VIAL IVP PRN (20:54)
[2019-04-20] MEDS: Mycophenolate Sodium (DR) 180 MG TABLET.DR PO SCH (20:55)
[2019-04-20] MEDS: Ascorbic Acid 500 MG TABLET PO SCH (20:56)
[2019-04-20] MEDS ORDERED: CRANBERRY PO SCH (21:00)
[2019-04-21] MEDS: Acetaminophen 325 MG TABLET PO PRN (03:47)
[2019-04-21] MEDS: *HR* Promethazine 25 MG/ML VIAL IVP PRN ×2 (03:47→23:13)
[2019-04-21 04:18] LABS: Hematocrit 29.9 % (35.3-44.9); Mean Corpuscular HGB Conc 30.1 g/dL (31.6-35.5); Mean Corpuscular Hemoglobin 28.8 pg (28.0-33.3); Mean Corpuscular Volume 95.8 fL (83.0-100.0); Mean Platelet Volume 11.8 fL (9.4-12.4); Platelet Count 114 K/mcL (140-400); Red Blood Count 3.12 M/mcL (3.82-4.97); Red Cell Distribution Width 16.5 % (11.5-14.5); White Blood Count 4.7 K/mcL (4.3-11.1)
[2019-04-21 04:40] LABS: BUN/Creatinine Ratio 15 (6-26); Blood Urea Nitrogen 65 mg/dL (6-20); Calcium 7.7 mg/dL (8.6-10.3); Carbon Dioxide 14 mEq/L (23-29); Chloride 113 mEq/L (98-107); Glucose 78 mg/dL (70-105); Magnesium 1.5 mg/dL (1.6-2.6); Osmolality,Calculated 310 (280-300); Potassium 4.8 mEq/L (3.5-5.1); Sodium 141 mEq/L (136-145); eGFR For African Americans 13 (> 60); eGFR For Non-African Americans 11 (> 60)
[2019-04-21] MEDS ORDERED: Acetaminophen IV 1,000 MG/100 ML INFUS..BTL IVPB ONE (06:28)
[2019-04-21] MEDS: predniSONE 10 MG TABLET PO SCH (08:39)
[2019-04-21] MEDS: cefTRIAXone 1,000 MG in Water for inj. (sterile) 10 ML IVP SCH (08:39)
[2019-04-21] MEDS: Ascorbic Acid 500 MG TABLET PO SCH ×2 (08:39→20:25)
[2019-04-21] MEDS: Aspirin 325 MG TABLET PO SCH (08:39)
[2019-04-21] MEDS: Spironolactone 25 MG TABLET PO SCH (08:39)
--- NOTE | 2019-04-21 08:55 | Internal Med Progress Note ---
<Faisal Oropeza - Last Filed: 04/21/19 15:04> Hospitalist Progress Note - Encounter Date of Encounter: 04/21/19 - Exam Vitals: Temp Pulse Resp BP Pulse Ox 99.1 F 69 16 121/72 97 04/21/19 11:27 04/21/19 11:27 04/21/19 11:27 04/21/19 11:27 04/21/19 11:27 - Assessment and Plan (1) UTI (urinary tract infection) Current Visit: Yes Status: Acute (2) Kidney transplant infection Current Visit: Yes Status: Acute (3) Sepsis Current Visit: Yes Status: Acute (4) CKD (chronic kidney disease) Current Visit: No Status: Chronic (5) Anemia Current Visit: No Status: Chronic (6) Metabolic acidosis Current Visit: No Status: Chronic (7) Hypertension Current Visit: No Status: Chronic (8) Renal transplant recipient Current Visit: No Status: Chronic (9) Fibromuscular dysplasia Current Visit: Yes Status: Chronic (10) GERD (gastroesophageal reflux disease) Current Visit: Yes Status: Chronic (11) HLD (hyperlipidemia) Current Visit: Yes Status: Chronic - Time Spent with Patient Total time spent is greater than 50% in coordination of care (as documented) at patient's floor/unit and/or counseling patient: Internal Medicine: Result - Labs CBC & Chem 7: 04/21/19 03:31 04/21/19 03:31 Labs: Short CBC 04/21/19 Range/Units 03:31 WBC 4.7 (4.3-11.1) K/mcL Hgb 9.0 L (11.5-15.4) g/dL Hct 29.9 L (35.3-44.9) % Plt Count 114 L (140-400) K/mcL BMP 04/21/19 03:31 Sodium 141 Potassium 4.8 Chloride 113 H Carbon Dioxide 14 L BUN 65 H Creatinine 4.35 H Glucose 78 Calcium 7.7 L - ABG Interpretation ABG results: PT/INR, D-dimer PT 13.2 Seconds (9.4-12.1) H 04/20/19 10:45 Consult Discharge Plan - Plan Referrals: Jamison Reid MD [Primary Care Provider] - - Attending Attestation I examined this patient and my medical decision-making was reviewed with the Resident Physician on 04/21/19. I agree with the documented findings, disposition and treatment plan as described except to the extent set forth below. Ms Maurer is currently admitted for sepsis related to Klebsiella UTI in ruiz splanted kidney. She remains moderate to high risk due to potential for worsening clinical status. Ms Maurer is feeling somewhat better. Did not sleep well. Less fever now. No CP or SOB. Exam as above. Continue IV Rocephin at this time. Will need to determine length of treatment. <Annamaria Ann - Last Filed: 04/21/19 19:17> Hospitalist Progress Note - Encounter Date of Encounter: 04/21/19 Time of Encounter: 08:55 - Subjective Interval History: Pt seen and examined at bedside this morning. She is currently in no acute distress. No acute complaints at this time. Mildly febrile (100.4F) overnight. Associated with mild nausea. Otherwise, denies headache, blurry vision, chest pain, SOB, abdominal pain, vomiting, diarrhea. Vitals stable. Hx of multiple UTIs in the past. Most recent urine culture grew Klebsiella. Current urine culture pending - growing gram negative rods. Will follow up urine culture results. Currently managed with Rocephin day #2. Nephrology on board. Recommendations appreciated. - Exam Vitals: Temp Pulse Resp BP Pulse Ox 99.1 F 75 16 118/71 96 04/21/19 07:02 04/21/19 07:02 04/21/19 07:02 04/21/19 07:02 04/21/19 07:02 Exam: GEN: Pleasant 48-year-old female who is resting comfortably at bedside. Vitals stable. No acute distress. AAOx3 HEENT: Atraumatic, Normocephalic, PERRLA, EOMI NECK: Supple, no lymphadenopathy, no JVD CARDIAC: RRR, s1 and s2 present, no murmurs, rubs, gallops PULM: CTAB, not in respiratory distress, no wheezes, rales, crackles, rhonchi ABD: Mild tenderness to palpation of her right lower quadrant. Otherwise soft, non-distended, no guarding or rebound tenderness. Bowel sounds present EXT: No peripheral edema. No calf tenderness, cyanosis, clubbing NEURO: CN 2-12 grossly intact. No focal neurologic deficits. Follows commands PSYCH: Appropriate mood and affect - Assessment and Plan (1) UTI (urinary tract infection) Current Visit: Yes Status: Acute Assessment and Plan: This is a 48-year-old female with past medical history significant for renal transplant and multiple urinary tract infections, chronic kidney disease, fi bromuscular dysplasia, anemia, hypertension, hyperlipidemia, GERD who initially presented to the emergency department with worsening fevers and chills. - Patient had been evaluated outpatient, and given by mouth antibiotics. She was treated with fosfomycin outpatient. - However she was nausea and unable to keep any medication down. Associated with fevers/chills - Recent urine culture = Klebsiella, susceptible to Rocephin - Initial vital signs in the ED: T = 102.3, HR = 118, RR = 16, BP = 124/88, O2 sat = 97% on room air - WBC = 5.5; Hb/Hct = 10.3/33.7; bicarbonate = 12; BUN/Cr = 69/4.20, GFR = 11 - Urinalysis: +blood, +LE, +RBCs, +WBCs - Lactic acid = 0.8 (within normal limits) - Chest x-ray: No acute process - EKG: Sinus tachycardia - Status post IV fluids and dose of Rocephin in the ED - Patient seen and examined at bedside this morning. Mildly febrile overnight, and also nauseous. Otherwise no acute complaints. Vital stable. PLAN: This patient presents with sepsis secondary to likely UTI. History of multiple UTIs in the past. Most recent urine culture grew Klebsiella. Started on Rocephin in the ED. - Continue with Rocephin, currently day #2; given that this is a complicated UTI in renal transplant recipient, may consider treatment for total duration of 14-21 days; additionally will cater treatment to urine culture when susceptibilities available. - Follow up final urine culture; follow-up blood cultures - Nephrology consulted. Recommendations appreciated. - Pain and nausea control as needed - Acetaminophen for fever (2) Kidney transplant infection Current Visit: Yes Status: Acute Assessment and Plan: Plan as above (3) Sepsis Current Visit: Yes Status: Acute Assessment and Plan: Initial vital signs in the ED: T = 102.3, HR = 118, RR = 16, BP = 124/88, O2 sat = 97% on room air - Status post IV fluids and antibiotics in the emergency department - Lactate within normal limits. PLAN: - Sepsis likely secondary to urinary tract infection. Currently resolving. - Gentle hydration given patient's tenuous renal function. - Follow up nephrology recommendations. - Follow up urine culture. Follow blood culture. - Continue IV ceftriaxone (4) CKD (chronic kidney disease) Current Visit: Yes Status: Chronic Assessment and Plan: History of CKD stage IV, nearing CKD stage V - GFR presentation = 11 - History of renal transplantation - Follows at [facility] PLAN: - Nephrology recommendations appreciated. - Per nephrology, no acute indication for renal replacement therapy at this time - Replete electrolytes as needed (5) Anemia Current Visit: No Status: Chronic Assessment and Plan: Patient does have anemia baseline. - Hb/Hct = 10.3/33.7 - MCV within normal limits - Iron studies: Iron = less than 10, transferrin = 154 (low), ferritin = 373 (high) PLAN: - H/H appears to be a baseline - Continue to monitor - Continue ferrous sulfate to replete iron stores - Likely secondary to chronic kidney disease and renal transplantation (6) Metabolic acidosis Current Visit: No Status: Chronic Assessment and Plan: Patient initially presented with bicarbonate = 12 PLAN: Low bicarbonate suggestion of metabolic acidosis - We will start bicarbonate tabs per nephrology - Cont to monitor (7) Hypertension Current Visit: No Status: Chronic Assessment and Plan: Chronic condition PLAN: - Continue home hypertension meds (8) GERD (gastroesophageal reflux disease) Current Visit: Yes Status: Chronic Assessment and Plan: Chronic PLAN: - Cont home meds (9) HLD (hyperlipidemia) Current Visit: Yes Status: Chronic Assessment and Plan: Chronic PLAN: - Cont home meds (10) Renal transplant recipient Current Visit: No Status: Chronic Assessment and Plan: Chronic PLAN: - Continue anti-rejection medications - Nephrology recommendations appreciated. DVT Prophylaxis: Heparin subcutaneous twice a day - Time Spent with Patient Total time spent is greater than 50% in coordination of care (as documented) at patient's floor/unit and/or counseling patient: less than 15 minutes Plan of Care Discussed with: patient Internal Medicine: Result - Labs CBC & Chem 7: 04/21/19 03:31 04/21/19 03:31 Labs: Short CBC 04/20/19 04/21/19 Range/Units 10:45 03:31 WBC 5.5 4.7 (4.3-11.1) K/mcL Hgb 10.3 L 9.0 L (11.5-15.4) g/dL Hct 33.7 L 29.9 L (35.3-44.9) % Plt Count 120 L 114 L (140-400) K/mcL Neutrophils # 4.5 (1.6-8.9) K/mcL BMP 04/20/19 04/20/19 04/21/19 10:45 12:06 03:31 Sodium Cancelled 141 141 Potassium Cancelled 4.0 4.8 Chloride Cancelled 118 H 113 H Carbon Dioxide Cancelled 12 L 14 L BUN Cancelled 69 H 65 H Creatinine Cancelled 4.20 H 4.35 H Glucose Cancelled 93 78 Calcium Cancelled 7.5 L 7.7 L Cardiac Enzymes 04/20/19 Range/Units 10:45 Troponin I < 0.03 (< 0.04) ng/mL Liver Function 04/20/19 04/20/19 Range/Units 10:45 12:06 Total Bilirubin Cancelled 0.3 Direct Bilirubin Cancelled 0.0 AST Cancelled 11 L ALT Cancelled 8 Alkaline Phosphatase Cancelled 27 L Albumin Cancelled 3.1 L Urine 04/20/19 Range/Units 11:34 Urine Color Yellow (Yellow) Urine Clarity Cloudy A (Clear) Urine pH 6.0 (5.0-8.0) pH Units Ur Specific [place] 1.006 L (1.010-1.025) Urine Protein >=300 H (Neg-Trace) mg/dL Urine Glucose (UA) Normal (Normal) mg/dL - ABG Interpretation ABG results: PT/INR, D-dimer PT 13.2 Seconds (9.4-12.1) H 04/20/19 10:45 - Impressions Impressions Chest X-Ray 04/20/19 10:56 IMPRESSION: No acute process. D/ / Eliazar Simmons MD / Eliazar Simmons MD Interpreting Provider: Eliazar Simmons MD <Derrick Oropezachavo Roman - Last Filed: 04/21/19 15:04> (1) UTI (urinary tract infection) Qualifiers: Urinary tract infection type: acute cystitis Hematuria presence: with hematuria Qualified Code(s): N30.01 - Acute cystitis with hematuria (3) Sepsis Qualifiers: Sepsis type: sepsis due to unspecified organism Qualified Code(s): A41.9 - Sepsis, unspecified organism (4) CKD (chronic kidney disease) Qualifiers: Chronic kidney disease stage: stage 4 (severe) Qualified Code(s): N18.4 - Chronic kidney disease, stage 4 (severe) (5) Anemia Qualifiers: Anemia type: due to chronic kidney disease Chronic kidney disease stage: stage 4 (severe) Qualified Code(s): N18.4 - Chronic kidney disease, stage 4 (severe); D63.1 - Anemia in chronic kidney disease (7) Hypertension Qualifiers: Hypertension type: essential hypertension Qualified Code(s): I10 - Essential (primary) hypertension (10) GERD (gastroesophageal reflux disease) Qualifiers: Esophagitis presence: esophagitis presence not specified Qualified Code(s): K21.9 - Gastro-esophageal reflux disease without esophagitis (11) HLD (hyperlipidemia) Qualifiers: Hyperlipidemia type: mixed hyperlipidemia Qualified Code(s): E78.2 - Mixed hyperlipidemia <Annamaria Ann - Last Filed: 04/21/19 19:17> (1) UTI (urinary tract infection) Qualifiers: Urinary tract infection type: site unspecified Hematuria presence: without hematuria Qualified Code(s): N39.0 - Urinary tract infection, site not specif ied (3) Sepsis Qualifiers: Sepsis type: sepsis due to unspecified organism Qualified Code(s): A41.9 - Sepsis, unspecified organism (4) CKD (chronic kidney disease) Qualifiers: Chronic kidney disease stage: stage 4 (severe) Qualified Code(s): N18.4 - Chronic kidney disease, stage 4 (severe) (5) Anemia Qualifiers: Anemia type: due to chronic kidney disease Chronic kidney disease stage: stage 4 (severe) Qualified Code(s): N18.4 - Chronic kidney disease, stage 4 (severe); D63.1 - Anemia in chronic kidney disease (7) Hypertension Qualifiers: Hypertension type: essential hypertension Qualified Code(s): I10 - Essential (primary) hypertension (8) GERD (gastroesophageal reflux disease) Qualifiers: Esophagitis presence: esophagitis presence not specified Qualified Code(s): K21.9 - Gastro-esophageal reflux disease without esophagitis (9) HLD (hyperlipidemia) Qualifiers: Hyperlipidemia type: mixed hyperlipidemia Qualified Code(s): E78.2 - Mixed hyperlipidemia
[2019-04-21] MEDS: Mycophenolate Sodium (DR) 180 MG TABLET.DR PO SCH ×2 (10:25→20:25)
[2019-04-21] MEDS: Cholecalciferol (D-3) 1,000 UNIT TABLET PO SCH (10:25)
--- NOTE | 2019-04-21 11:24 | Electrocardiograph Report ---
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
--- NOTE | 2019-04-21 13:23 | Nephrology Consult Note ---
Date of Encounter: 04/21/19 Time of Encounter: 12:00 Assessment and Plan (1) UTI (urinary tract infection) Current Visit: Yes Status: Acute Agree with current abx regimen Followup all culture results Qualifiers: Urinary tract infection type: acute cystitis Hematuria presence: with hematuria Qualified Code(s): N30.01 - Acute cystitis with hematuria (2) CKD (chronic kidney disease) stage 5, GFR less than 15 ml/min Current Visit: No Status: Acute Stable No acute indication for JEWELRY MANAGER at this time Lytes stable except magnesium (can replete) and calcium ( will check PTH and vit D levels) Continue calcium supplements (3) S/P kidney transplant Current Visit: No Status: Acute Continue antirejection meds per [facility] transplant (4) Metabolic acidosis Current Visit: No Status: Chronic Start bicarb tabs History of Present Illness - Reason for Consult Consult date: 04/21/19 Chronic Kidney Disease, metabolic acidosis Requesting physician: Nikolai Lundberg - History of Present Illness 48 y o female with PMH of 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 s.p ER visit the day prior with fosfomycin started but still with fevers and myalgias. Pt returned to the ED and was admitted with klebsiella UTI sensitive to rocephin which was started. Renal consulted for CKD managment. SCr about her baseline, on transplant list already. Pt seen and examined feeling alittle better today but had fever last night. Past Med Surg Social Fam HX - Past Medical History Medical history: GERD, hyperlipidemia, hypertension, renal disease Additional medical history: fibro muscular dysplasia. IRREGULAR HEARTBEAT. GASTRIC ULCER. DIZZINESS. KIDNEY TRANSPLANT. KIDNEY STONES. ANEMIA HISTORY Psychiatric history: no psych history - Past Surgical History Surgical History: cholecystectomy, orthopedic, other, other Additional surgical history: kidney transplant, Back/Neck fusion, hemorrhoid surgery x 2. RIGHT ARM FISTULA. LOW BACK DISCECTOMY - Social History Smoking Status: Never smoker Smokeless Tobacco Status: No Alcohol use: none Drug use: none - Family History Father Living Status: Still Living Hx Family Cardiac Disorders: Yes (HTN) Hx Family Cancer: Yes (prostate) Hx Family Endocrine Disorder: Yes (diabetes) Mother Living Status: Still Living Hx Family Cardiac Disorders: Yes (htn) Medications and Allergies Albuterol Sulfate [Albuterol Inhaler] 2 puff IH Q4HR PRN 06/11/16 [History] Allopurinol [Zyloprim 100 MG] 100 mg PO DAILY 06/11/16 [History] Aspirin 325 mg PO DAILY 06/11/16 [History] Atorvastatin Calcium [Lipitor] 80 mg PO HS 06/11/16 [History] Calcium Carbonate/Vitamin D3 [Calcium 600 + Vit D Tablet] 1 tab PO BID 06/11/16 [History] Ergocalciferol (VITAMIN D2) [Vitamin D2] 50,000 unit PO MOTH 06/11/16 [History] Furosemide [Lasix] 40 mg PO BID PRN 06/11/16 [History] Losartan Potassium [Cozaar] 50 mg PO BID 06/11/16 [History] Mycophenolate Sodium [Myfortic] 360 mg PO BID 06/11/16 [History] Ondansetron HCl [Zofran] 4 mg PO Q8H PRN 06/11/16 [History] Potassium Chloride [K-Tab ER] 20 meq PO DAILY 06/11/16 [History] Promethazine [Phenergan] 25 mg PO Q6HR PRN 06/11/16 [History] metOLazone [Zaroxolyn] 2.5 mg PO DAILY PRN 06/11/16 [History] predniSONE [PredniSONE] 10 mg PO DAILY 11/02/16 [History] Docusate [Colace] 300 mg PO HS 03/31/17 [History] Spironolactone [Aldactone] 50 mg PO DAILY 03/31/17 [History] Ascorbic Acid [Vitamin C] 1,000 mg PO BID 04/20/19 [History] Belatacept [Nulojix] 250 mg IV Q4W 04/20/19 [History] Cranberry Conc/C/Bacill Coag [Cranberry Tablet] 1 tab PO BID 04/20/19 [History] DiphenhydraMINE [Benadryl] 25 mg PO HS 04/20/19 [History] Ferrous Sulfate 324 mg PO DAILY 04/20/19 [History] Fosfomycin Tromethamine [Monurol] 3 gm PO Q1-2D 04/20/19 [History] Metoprolol Tartrate [Lopressor] 50 mg PO BID 04/20/19 [History] Omeprazole [PriLOSEC] 40 mg PO BID 04/20/19 [History] Allergy/AdvReac Type Severity Reaction Status Date / Time adhesive Allergy Rash Verified 04/20/19 10:24 clopidogrel [From Plavix] Allergy Rash Verified 04/20/19 10:24 Iodinated Contrast- Oral and Allergy Rash,Hives Verified 04/20/19 10:24 IV Dye Penicillins Allergy Rash Verified 04/20/19 10:24 plasma protein fraction Allergy Swelling Verified 04/20/19 10:24 of Lip/Tongue/Throat chloraprep Allergy Hives Uncoded 04/20/19 10:24 Review of Systems All Systems review (narrative): The rest of the systems are negative Constitutional: fever(s) (admits) Cardiovascular: chest pain (denies), edema (admits) Respiratory: dyspnea (denies) Gastrointestinal: nausea (admits) Exam - Vital Signs Vital signs: Initial Vital Signs Temp Pulse Resp BP Pulse Ox 102.3 F H 118 16 124/88 97 04/20/19 10:24 04/20/19 10:24 04/20/19 10:24 04/20/19 10:24 04/20/19 10:24 Vital Signs - Last 8 Hours Temp Pulse Resp BP Pulse Ox 04/21/19 11:27 99.1 F 69 16 121/72 97 04/21/19 07:02 99.1 F 75 16 118/71 96 04/21/19 06:22 100.4 F H Intake and Output 04/20/19 04/21/19 04/21/19 23:59 07:59 15:59 Intake Total 1240 / 2250 100 / 332 232 / 332 Balance 1240 / 2250 100 / 332 232 / 332 Intake: IV Fluids 999 / 2009 100 / 212 112 / 212 0.9 % Sodium Chloride 1,000 ML 1000 / 1000 @ 999 mls/hr IVC .Q1H1M ONE Rx# :[id number] Rocephin 1,000 MG In Water for inj. (sterile) 10 ML @ 600 mls/ hr IVP DAILY STACY Rx#:[id number] Ofirmev 1,000 mg/100 ml 1,000 100 / 100 mg In 100 ml @ 400 mls/hr IVPB ONCE ONE Rx#:[id number] Magnesium Sulfate 1 GM In 0.9 % 102 / 102 Sodium Chloride 100 ML @ 100 mls/hr IVPB ONCE ONE Rx#: [id number] Oral 240 / 240 120 / 120 Other: Meal Dinner Breakfast Percent of Meal Consumed 20% 30% # Voids 1 Weight 93.531 kg Patient Weight 04/21/19 23:59 Weight 93.531 kg - General Appearance General appearance: well-developed, well-nourished (NAD) EENT: ATNC, mucous membranes moist Neck: no JVD, supple Respiratory: clear Cardiology: no edema, normal S1, normal S2 Gastrointestinal: no tenderness, no guarding Integumentary: warm and dry, ecchymotic Neurologic: no focal deficit Musculoskeletal: no deformities Psychiatric: mood/affect appropriate Results - Lab Results 04/21/19 03:31 04/21/19 03:31 Most recent lab results 04/21/19 03:31 Calcium 7.7 L Magnesium 1.5 L Consult Discharge Plan - Plan Referrals: Jamison Reid MD [Primary Care Provider] -
[2019-04-21 17:18] LABS: Ferritin 373 ng/mL (10-120); Iron < 10 mcg/dL (50-170); Transferrin 154 mg/dL (203-362)
[2019-04-22 05:28] LABS: Hematocrit 29.6 % (35.3-44.9); Mean Corpuscular HGB Conc 30.4 g/dL (31.6-35.5); Mean Corpuscular Hemoglobin 28.4 pg (28.0-33.3); Mean Corpuscular Volume 93.4 fL (83.0-100.0); Platelet Count 139 K/mcL (140-400); Red Blood Count 3.17 M/mcL (3.82-4.97); Red Cell Distribution Width 16.2 % (11.5-14.5); White Blood Count 3.8 K/mcL (4.3-11.1)
[2019-04-22] MEDS: *HR* Heparin 5,000 UNIT/ML VIAL SQ SCH ×2 (05:44→16:33)
[2019-04-22] MEDS: *HR* Promethazine 25 MG/ML VIAL IVP PRN ×2 (05:44→21:22)
[2019-04-22 06:11] LABS: Lymphocytes # 0.2 K/mcL (0.6-4.6); Neutrophils # 3.7 K/mcL (1.6-8.9)
[2019-04-22 06:12] LABS: Anisocytosis 1+ (Not Present); Poikilocytosis 1+ (Not Present)
[2019-04-22 06:13] LABS: Platelet Estimate Slight Decrease (Normal)
[2019-04-22 06:49] LABS: Calcium 7.9 mg/dL (8.6-10.3); Magnesium 2.5 mg/dL (1.6-2.6); Phosphorous 5.9 mg/dL (2.7-4.5); Potassium 4.3 mEq/L (3.5-5.1)
--- NOTE | 2019-04-22 07:41 | Internal Med Progress Note ---
<Faisal Oropeza - Last Filed: 04/22/19 09:10> Hospitalist Progress Note - Encounter Date of Encounter: 04/22/19 - Exam Vitals: Temp Pulse Resp BP Pulse Ox 98.2 F 70 16 128/73 98 04/22/19 07:19 04/22/19 07:19 04/22/19 07:19 04/22/19 07:19 04/22/19 07:19 - Assessment and Plan (1) UTI (urinary tract infection) Current Visit: Yes Status: Acute (2) Kidney transplant infection Current Visit: Yes Status: Acute (3) Sepsis Current Visit: Yes Status: Acute (4) CKD (chronic kidney disease) Current Visit: Yes Status: Chronic (5) Anemia Current Visit: No Status: Chronic (6) Metabolic acidosis Current Visit: No Status: Chronic (7) Hypertension Current Visit: No Status: Chronic (8) Renal transplant recipient Current Visit: No Status: Chronic (9) Fibromuscular dysplasia Current Visit: Yes Status: Chronic (10) GERD (gastroesophageal reflux disease) Current Visit: Yes Status: Chronic (11) HLD (hyperlipidemia) Current Visit: Yes Status: Chronic - Time Spent with Patient Total time spent is greater than 50% in coordination of care (as documented) at patient's floor/unit and/or counseling patient: Internal Medicine: Result - Labs CBC & Chem 7: 04/22/19 04:49 04/22/19 06:13 Labs: Short CBC 04/22/19 Range/Units 04:49 WBC 3.8 L (4.3-11.1) K/mcL Hgb 9.0 L (11.5-15.4) g/dL Hct 29.6 L (35.3-44.9) % Plt Count 139 L (140-400) K/mcL Neutrophils # 3.7 (1.6-8.9) K/mcL BMP 04/21/19 04/22/19 03:31 06:13 Sodium 141 144 Potassium 4.8 4.3 Chloride 113 H 115 H Carbon Dioxide 14 L 17 L BUN 65 H 61 H Creatinine 4.35 H 4.43 H Glucose 78 109 H Calcium 7.7 L 7.9 L - ABG Interpretation ABG results: PT/INR, D-dimer PT 13.2 Seconds (9.4-12.1) H 04/20/19 10:45 Consult Discharge Plan - Plan Referrals: Jamison Reid MD [Primary Care Provider] - - Attending Attestation I examined this patient and my medical decision-making was reviewed with the Resident Physician on 04/22/19. I agree with the documented findings, disposition and treatment plan as described except to the extent set forth below. Ms Maurer is currently admitted for sepsis due to Klebsiella UTI in transplanted kidney. She remains moderate to high risk due to potential for worsening clinical status. Ms Maurer is doing somewhat better. She has a lower WBC but a lot of bands today. No fever now. Exam - heart reg with no murmur. Lungs clear. Continue IV abx. Repeat cx pending. Anticipate d/c in next 24-48 hours. <Annamaria Ann - Last Filed: 04/22/19 13:44> Hospitalist Progress Note - Encounter Date of Encounter: 04/22/19 Time of Encounter: 07:40 - Subjective Interval History: Patient seen and examined at bedside this morning. No acute events overnight noted. Currently on Rocephin Day #3 for treatment of UTI. Urine Cx pending. Patient was afebrile overnight. Remains without leukocytosis. Denies any headaches, chest pain, shortness of breath, abdominal pain, nausea, vomiting, diarrhea. Vitals hemodynamically stable. No acute complaints. - Exam Vitals: Temp Pulse Resp BP Pulse Ox 98.2 F 70 16 128/73 98 04/22/19 07:19 04/22/19 07:19 04/22/19 07:19 04/22/19 07:19 04/22/19 07:19 Exam: GEN: This is a very pleasant 48-year-old female who is resting comfortably at bedside. Vitals stable. No acute distress. AAOx3 HEENT: Atraumatic, Normocephalic, PERRLA, EOMI NECK: Supple, no lymphadenopathy, no JVD CARDIAC: RRR, s1 and s2 present, no murmurs, rubs, gallops PULM: CTAB, not in respiratory distress, no wheezes, rales, crackles, rhonchi ABD: Soft, mild tenderness to palpation in the right lower quadrant/suprapubic region, non-distended, no guarding or rebound tenderness. Bowel sounds present EXT: No peripheral edema. No calf tenderness, cyanosis, clubbing NEURO: CN 2-12 grossly intact. No focal neurologic deficits. Follows commands PSYCH: Appropriate mood and affect - Assessment and Plan (1) UTI (urinary tract infection) Current Visit: Yes Status: Acute Assessment and Plan: This is a 48-year-old female with past medical history significant for renal transplant and multiple urinary tract infections, chronic kidney disease, fibromuscular dysplasia, anemia, hypertension, hyperlipidemia, GERD who initially presented to the emergency department with worsening fevers and chills. - Patient had been evaluated outpatient, and given by mouth antibiotics. She was treated with fosfomycin outpatient. - However she was nausea and unable to keep any medication down. Associated with fevers/chills - Recent urine culture = Klebsiella, susceptible to Rocephin - Initial vital signs in the ED: T = 102.3, HR = 118, RR = 16, BP = 124/88, O2 sat = 97% on room air - WBC = 5.5; Hb/Hct = 10.3/33.7; bicarbonate = 12; BUN/Cr = 69/4.20, GFR = 11 - Urinalysis: +blood, +LE, +RBCs, +WBCs - Lactic acid = 0.8 (within normal limits) - Chest x-ray: No acute process - EKG: Sinus tachycardia - Status post IV fluids and dose of Rocephin in the ED - Urine Cx: Klebsiella - Patient seen and examined today. He remains afebrile. CBC does show elevated bands, but improving white count. Urine culture did grow Klebsiella. Continue with Rocephin. Transition to PO antibiotics prior to discharge. PLAN: This patient presents with sepsis secondary to likely UTI. History of multiple UTIs in the past. Most recent urine culture grew Klebsiella. Started on Rocephin in the ED. - Continue with Rocephin, currently day #3; given that this is a complicated UTI in renal transplant recipient, may consider treatment for total duration of 14-21 days; additionally will cater treatment to urine culture when susceptibilities available; transition to PO prior to discharge - Follow-up blood cultures - Nephrology consulted. Recommendations appreciated. - Pain and nausea control as needed - Acetaminophen for fever (2) Kidney transplant infection Current Visit: Yes Status: Acute Assessment and Plan: PLAN as above (3) Sepsis Current Visit: Yes Status: Acute Assessment and Plan: Initial vital signs in the ED: T = 102.3, HR = 118, RR = 16, BP = 124/88, O2 sat = 97% on room air - Status post IV fluids and antibiotics in the emergency department - Lactate within normal limits. PLAN: - Sepsis likely secondary to urinary tract infection. RESOLVED - Gentle hydration given patient's tenuous renal function. - Follow up nephrology recommendations. - Follow blood culture. - Continue IV ceftriaxone (4) CKD (chronic kidney disease) Current Visit: Yes Status: Chronic Assessment and Plan: History of CKD stage IV, nearing CKD stage V - GFR presentation = 11 - History of renal transplantation - Follows at [facility] - Patient is not noted to have hyperphosphatemia today. Phosphate = 5.9. Continue to monitor. PLAN: - Nephrology recommendations appreciated. - Per nephrology, no acute indication for renal replacement therapy at this time - Replete electrolytes as needed: We will continue to monitor phosphate. We will hold off on any phosphate binding therapy currently. Magnesium is improved after replacement. (5) Anemia Current Visit: No Status: Chronic Assessment and Plan: Patient does have anemia baseline. - Hb/Hct = 10.3/33.7 - MCV within normal limits - Iron studies: Iron = less than 10, transferrin = 154 (low), ferritin = 373 (high) PLAN: - H/H appears to be a baseline - Continue to monitor - Continue ferrous sulfate to replete iron stores - Likely secondary to chronic kidney disease and renal transplantation (6) Metabolic acidosis Current Visit: No Status: Chronic Assessment and Plan: Patient initially presented with bicarbonate = 12 PLAN: Low bicarbonate suggesting metabolic acidosis - We will start bicarbonate tabs per nephrology - Cont to monitor (7) Hypertension Current Visit: No Status: Chronic Assessment and Plan: Chronic condition PLAN: - Continue home hypertension meds (8) GERD (gastroesophageal reflux disease) Current Visit: Yes Status: Chronic Assessment and Plan: Chronic PLAN: - Cont home meds (9) HLD (hyperlipidemia) Current Visit: Yes Status: Chronic Assessment and Plan: Chronic PLAN: - Cont home meds (10) Renal transplant recipient Current Visit: No Status: Chronic Assessment and Plan: Chronic PLAN: - Continue anti-rejection medications - Nephrology recommendations appreciated. - Per patient, she will be getting another kidney transplant in the future (11) DVT prophylaxis Current Visit: No Status: Acute Assessment and Plan: PLAN: - Heparin SQ BID DVT Prophylaxis: Heparin subcutaneously twice a day - Time Spent with Patient Total time spent is greater than 50% in coordination of care (as documented) at patient's floor/unit and/or counseling patient: less than 15 minutes Plan of Care Discussed with: patient Internal Medicine: Result - Labs CBC & Chem 7: 04/22/19 04:49 04/22/19 06:13 Labs: Short CBC 04/22/19 Range/Units 04:49 WBC 3.8 L (4.3-11.1) K/mcL Hgb 9.0 L (11.5-15.4) g/dL Hct 29.6 L (35.3-44.9) % Plt Count 139 L (140-400) K/mcL Neutrophils # 3.7 (1.6-8.9) K/mcL BMP 04/21/19 04/22/19 03:31 06:13 Sodium 141 144 Potassium 4.8 4.3 Chloride 113 H 115 H Carbon Dioxide 14 L 17 L BUN 65 H 61 H Creatinine 4.35 H 4.43 H Glucose 78 109 H Calcium 7.7 L 7.9 L - ABG Interpretation ABG results: PT/INR, D-dimer PT 13.2 Seconds (9.4-12.1) H 04/20/19 10:45 <Faisal Oropeza - Last Filed: 04/22/19 09:10> (1) UTI (urinary tract infection) Qualifiers: Urinary tract infection type: acute cystitis Hematuria presence: with hematuria Qualified Code(s): N30.01 - Acute cystitis with hematuria (3) Sepsis Qualifiers: Sepsis type: sepsis due to unspecified organism Qualified Code(s): A41.9 - Sepsis, unspecified organism (4) CKD (chronic kidney disease) Qualifiers: Chronic kidney disease stage: stage 4 (severe) Qualified Code(s): N18.4 - Chronic kidney disease, stage 4 (severe) (5) Anemia Qualifiers: Anemia type: due to chronic kidney disease Chronic kidney disease stage: stage 4 (severe) Qualified Code(s): N18.4 - Chronic kidney disease, stage 4 (severe); D63.1 - Anemia in chronic kidney disease (7) Hypertension Qualifiers: Hypertension type: essential hypertension Qualified Code(s): I10 - Essential (primary) hypertension (10) GERD (gastroesophageal reflux disease) Qualifiers: Esophagitis presence: esophagitis presence not specified Qualified Code(s): K21.9 - Gastro-esophageal reflux disease without esophagitis (11) HLD (hyperlipidemia) Qualifiers: Hyperlipidemia type: mixed hyperlipidemia Qualified Code(s): E78.2 - Mixed hyperlipidemia <Annamaria Ann - Last Filed: 04/22/19 13:44> (1) UTI (urinary tract infection) Qualifiers: Urinary tract infection type: site unspecified Hematuria presence: without hematuria Qualified Code(s): N39.0 - Urinary tract infection, site not specified (3) Sepsis Qualifiers: Sepsis type: sepsis due to unspecified organism Qualified Code(s): A41.9 - Sepsis, unspecified organism (4) CKD (chronic kidney disease) Qualifiers: Chronic kidney disease stage: stage 4 (severe) Qualified Code(s): N18.4 - Chronic kidney disease, stage 4 (severe) (5) Anemia Qualifiers: Anemia type: due to chronic kidney disease Chronic kidney disease stage: stage 4 (severe) Qualified Code(s): N18.4 - Chronic kidney disease, stage 4 (severe); D63.1 - Anemia in chronic kidney disease (7) Hypertension Qualifiers: Hypertension type: essential hypertension Qualified Code(s): I10 - Essential (primary) hypertension (8) GERD (gastroesophageal reflux disease) Qualifiers: Esophagitis presence: esophagitis presence not specified Qualified Code(s): K21.9 - Gastro-esophageal reflux disease without esophagitis (9) HLD (hyperlipidemia) Qualifiers: Hyperlipidemia type: mixed hyperlipidemia Qualified Code(s): E78.2 - Mixed hyperlipidemia
[2019-04-22] MEDS: Mycophenolate Sodium (DR) 180 MG TABLET.DR PO SCH ×2 (08:12→21:22)
[2019-04-22] MEDS: Ascorbic Acid 500 MG TABLET PO SCH ×2 (08:12→21:23)
[2019-04-22] MEDS: cefTRIAXone 1,000 MG in Water for inj. (sterile) 10 ML IVP SCH (08:13)
[2019-04-22] MEDS: Cholecalciferol (D-3) 1,000 UNIT TABLET PO SCH (08:13)
[2019-04-22] MEDS: Aspirin 325 MG TABLET PO SCH (08:13)
[2019-04-22] MEDS: Spironolactone 25 MG TABLET PO SCH (08:13)
[2019-04-22] MEDS: predniSONE 10 MG TABLET PO SCH (08:13)
[2019-04-22] MEDS: Acetaminophen 325 MG TABLET PO PRN (21:23)
--- NOTE | 2019-04-22 22:08 | Nephrology Progress Note ---
Date of Encounter: 04/22/19 Time of Encounter: 12:00 - Assessment and Plan (1) UTI (urinary tract infection) Current Visit: Yes Status: Acute Agree with current abx regimen Followup all culture results Qualifiers: Urinary tract infection type: acute cystitis Hematuria presence: with hematuria Qualified Code(s): N30.01 - Acute cystitis with hematuria (2) CKD (chronic kidney disease) stage 5, GFR less than 15 ml/min Current Visit: No Status: Acute SCr about the same at 4.43, GFR 11 No acute indication for FELT PULLER at this time Lytes stable with magnesium (repleted) and calcium still low with PTH elevated and vit D level WNL. Will add calcitriol to regimen. Phos slightly elevated, will monitor and hold off on binders for now Continue calcium supplements (3) S/P kidney transplant Current Visit: No Status: Acute Continue antirejection meds per [facility] transplant (4) Metabolic acidosis Current Visit: No Status: Chronic Continue bicarb tabs, improving (5) Immunosuppressed status Current Visit: No Status: Chronic As above (6) Hypocalcemia Current Visit: No Status: Acute As above (7) Anemia Current Visit: No Status: Chronic Hgb fairly stable at 9.0 but very iron deficient, continue oral supplements Qualifiers: Anemia type: due to chronic kidney disease Chronic kidney disease stage: stage 4 (severe) Qualified Code(s): N18.4 - Chronic kidney disease, stage 4 (severe); D63.1 - Anemia in chronic kidney disease Subjective Interval history: Pt seen and examined feels better today but reports some nausea relieved with phenergan. Pt also reports higher BP readings today and some acid reflux.. +L flank pain Objective - Vital Signs Vital signs: Vital Signs Temp Pulse Resp BP Pulse Ox 04/22/19 19:44 98.6 F 69 17 152/81 100 04/22/19 16:13 98.6 F 75 18 146/82 97 04/22/19 11:40 98.9 F 65 16 164/98 99 04/22/19 07:19 98.2 F 70 16 128/73 98 04/22/19 05:36 98.7 F 59 17 128/75 100 04/22/19 00:22 98.6 F 67 15 165/97 98 Intake and Output 04/22/19 04/22/19 04/22/19 07:59 15:59 23:59 Intake Total 140 / 150 10 / 150 Balance 140 / 150 10 / 150 Intake: IV Fluids Rocephin 1,000 MG In Water for inj. (sterile) 10 ML @ 600 mls/ hr IVP DAILY [facility] Rx#:[id number] Oral 140 / 140 Other: Meal Breakfast Percent of Meal Consumed 15% - General Appearance General appearance: Present: well-developed, well-nourished EENT: Present: ATNC, mucous membranes moist Neck: Present: no JVD, supple Respiratory: Present: clear Cardiology: Present: no edema, normal S1, normal S2 Dialysis Vascular Access: Arteriovenous Fistula thrill: Yes bruit: Yes Gastrointestinal: Present: no tenderness, no guarding Integumentary: Present: warm and dry, ecchymotic Neurologic: Present: no focal deficit Musculoskeletal: Present: no deformities Psychiatric: Present: mood/affect appropriate, cooperative - Lab 04/22/19 04:49 04/22/19 06:13 Consult Discharge Plan - Plan Referrals: Jamison Reid MD [Primary Care Provider] -
[2019-04-23] MEDS: *HR* Heparin 5,000 UNIT/ML VIAL SQ SCH (05:02)
[2019-04-23 05:58] LABS: Hematocrit 28.8 % (35.3-44.9); Hemoglobin 8.8 g/dL (11.5-15.4); Mean Corpuscular HGB Conc 30.6 g/dL (31.6-35.5); Mean Corpuscular Hemoglobin 28.3 pg (28.0-33.3); Mean Corpuscular Volume 92.6 fL (83.0-100.0); Mean Platelet Volume 11.9 fL (9.4-12.4); Platelet Count 127 K/mcL (140-400); Red Blood Count 3.11 M/mcL (3.82-4.97); Red Cell Distribution Width 16.1 % (11.5-14.5)
[2019-04-23 06:18] LABS: Calcium 7.9 mg/dL (8.6-10.3); Magnesium 2.3 mg/dL (1.6-2.6); Phosphorous 6.3 mg/dL (2.7-4.5); Potassium 4.5 mEq/L (3.5-5.1)
[2019-04-23 06:32] LABS: Eosinophils # 0.2 K/mcL (0.0-0.6); Lymphocytes # 1.6 K/mcL (0.6-4.6); Monocytes # 0.2 K/mcL (0.0-1.3); Neutrophils # 1.9 K/mcL (1.6-8.9)
[2019-04-23 06:33] LABS: Anisocytosis 1+ (Not Present); Platelet Estimate Decreased (Normal)
[2019-04-23] MEDS: predniSONE 10 MG TABLET PO SCH (08:40)
[2019-04-23] MEDS: Ascorbic Acid 500 MG TABLET PO SCH (08:40)
[2019-04-23] MEDS: Mycophenolate Sodium (DR) 180 MG TABLET.DR PO SCH (08:40)
[2019-04-23] MEDS: Aspirin 325 MG TABLET PO SCH (08:40)
[2019-04-23] MEDS: Spironolactone 25 MG TABLET PO SCH (08:40)
[2019-04-23] MEDS: Cholecalciferol (D-3) 1,000 UNIT TABLET PO SCH (08:41)
[2019-04-23] MEDS: cefTRIAXone 1,000 MG in Water for inj. (sterile) 10 ML IVP SCH (08:43)
--- NOTE | 2019-04-23 09:14 | Nephrology Progress Note ---
Date of Encounter: 04/23/19 - Assessment and Plan (1) UTI (urinary tract infection) Current Visit: Yes Status: Acute Qualifiers: Urinary tract infection type: acute cystitis Hematuria presence: with hematuria Qualified Code(s): N30.01 - Acute cystitis with hematuria (2) CKD (chronic kidney disease) stage 5, GFR less than 15 ml/min Current Visit: No Status: Acute (3) S/P kidney transplant Current Visit: No Status: Acute (4) Metabolic acidosis Current Visit: No Status: Chronic (5) Immunosuppressed status Current Visit: No Status: Chronic (6) Hypocalcemia Current Visit: No Status: Acute (7) Anemia Current Visit: No Status: Chronic Qualifiers: Anemia type: due to chronic kidney disease Chronic kidney disease stage: stage 4 (severe) Qualified Code(s): N18.4 - Chronic kidney disease, stage 4 (severe); D63.1 - Anemia in chronic kidney disease Subjective Interval history: Pt seen and examined feels better today but reports some nausea relieved with phenergan. Pt also reports higher BP readings today and some acid reflux.. +L flank pain Objective - Vital Signs Vital signs: Vital Signs Temp Pulse Resp BP Pulse Ox 04/23/19 08:38 98.7 F 80 18 129/80 99 04/23/19 08:36 98 04/23/19 03:26 97.9 F 66 17 128/76 98 04/22/19 23:44 98.1 F 76 17 127/73 98 04/22/19 19:44 98.6 F 69 17 152/81 100 04/22/19 16:13 98.6 F 75 18 146/82 97 04/22/19 11:40 98.9 F 65 16 164/98 99 Intake and Output 04/22/19 04/23/19 04/23/19 23:59 07:59 15:59 Intake Total 150 Balance 150 Intake: IV Fluids Rocephin 1,000 MG In Water for inj. (sterile) 10 ML @ 600 mls/ hr IVP DAILY COUNTS INCLUDE 234 BEDS AT [facility] Rx#:[id number] Other: Weight 94 kg - Lab 04/23/19 04:45 04/23/19 04:45 Most recent lab results 04/23/19 04:45 Calcium 7.9 L Phosphorus 6.3 H Magnesium 2.3 Consult Discharge Plan - Plan Referrals: Jamison Reid MD [Primary Care Provider] -
--- NOTE | 2019-04-23 10:30 | Discharge Summary ---
Orders not resulted at time of discharge: Pending orders 04/20/19 10:57 Culture,Blood [BC] Stat Date of Encounter: 04/23/19 Time of Encounter: 10:28 - Discharge Diagnosis (1) UTI (urinary tract infection) Priority: Primary Status: Acute Qualifiers: Urinary tract infection type: acute cystitis Hematuria presence: with hematuria Qualified Code(s): N30.01 - Acute cystitis with hematuria (2) Hypertension Priority: Secondary Status: Chronic Qualifiers: Hypertension type: essential hypertension Qualified Code(s): I10 - Essential (primary) hypertension (3) Metabolic acidosis Priority: Secondary Status: Chronic (4) CKD (chronic kidney disease) Priority: Secondary Status: Chronic Qualifiers: Chronic kidney disease stage: stage 4 (severe) Qualified Code(s): N18.4 - Chronic kidney disease, stage 4 (severe) (5) Renal transplant recipient Priority: Secondary Status: Chronic (6) Anemia Priority: Secondary Status: Chronic Qualifiers: Anemia type: due to chronic kidney disease Chronic kidney disease stage: stage 4 (severe) Qualified Code(s): N18.4 - Chronic kidney disease, stage 4 (severe); D63.1 - Anemia in chronic kidney disease (7) Sepsis Priority: Secondary Status: Resolved Qualifiers: Sepsis type: sepsis due to unspecified organism Qualified Code(s): A41.9 - Sepsis, unspecified organism (8) Fibromuscular dysplasia Priority: Secondary Status: Chronic (9) GERD (gastroesophageal reflux disease) Priority: Secondary Status: Chronic Qualifiers: Esophagitis presence: esophagitis presence not specified Qualified Code(s): K21.9 - Gastro-esophageal reflux disease without esophagitis (10) HLD (hyperlipidemia) Priority: Secondary Status: Chronic Qualifiers: Hyperlipidemia type: mixed hyperlipidemia Qualified Code(s): E78.2 - Mixed hyperlipidemia (11) Kidney transplant infection Priority: Secondary Status: Acute Hospital course: Ms. Maurer is a 48 year old female with history of hypertension, previous renal transplant presented with fevers and chills. She has had multiple urinary tract infections in the past and she was found to have a another urinary tract infection. She was treated with Rocephin and recovered well. Urine culture was positive for Klebsiella. She is probably Rocephin was transitioned to Omnicef at discharge. She is followed by nephrology who added calcitriol and increased sodium bicarbonate. On the day of discharge patient states that she feels pretty good. Patient will be discharged home in stable condition. Discharge discussed with: patient - Time Spent with Patient Total time spent providing and/or coordinating discharge services: Time spent: Greater than 30 minutes (45 minutes) - Discharge Medications Prescriptions: New Cefdinir [Omnicef] 300 mg PO DAILY #3 capsule Calcitriol [Rocaltrol] 0.25 mcg PO DAILY #30 capsule Sodium Bicarbonate 1,300 mg PO BID #60 tablet Continued Ondansetron HCl [Zofran] 4 mg PO Q8H PRN PRN Reason: Nausea Promethazine [Phenergan] 25 mg PO Q6HR PRN PRN Reason: Nausea Potassium Chloride [K-Tab ER] 20 meq PO DAILY Mycophenolate Sodium [Myfortic] 360 mg PO BID metOLazone [Zaroxolyn] 2.5 mg PO DAILY PRN PRN Reason: Edema Losartan Potassium [Cozaar] 50 mg PO BID Furosemide [Lasix] 40 mg PO BID PRN PRN Reason: Fluid Retention Ergocalciferol (VITAMIN D2) [Vitamin D2] 50,000 unit PO MOTH Calcium Carbonate/Vitamin D3 [Calcium 600 + Vit D Tablet] 1 tab PO BID Atorvastatin Calcium [Lipitor] 80 mg PO HS Aspirin 325 mg PO DAILY Allopurinol [Zyloprim 100 MG] 100 mg PO DAILY Albuterol Sulfate [Albuterol Inhaler] 2 puff IH Q4HR PRN PRN Reason: Shortness Of Breath predniSONE [PredniSONE] 10 mg PO DAILY Spironolactone [Aldactone] 50 mg PO DAILY Docusate [Colace] 300 mg PO HS Ascorbic Acid [Vitamin C] 1,000 mg PO BID DiphenhydraMINE [Benadryl] 25 mg PO HS Cranberry Conc/C/Bacill Coag [Cranberry Tablet] 1 tab PO BID Belatacept [Nulojix] 250 mg IV Q4W Ferrous Sulfate 324 mg PO DAILY Fosfomycin Tromethamine [Monurol] 3 gm PO Q1-2D Metoprolol Tartrate [Lopressor] 50 mg PO BID Omeprazole [PriLOSEC] 40 mg PO BID Home Medications: Albuterol Sulfate [Albuterol Inhaler] 2 puff IH Q4HR PRN 06/11/16 [History] Allopurinol [Zyloprim 100 MG] 100 mg PO DAILY 08/14/16 [History] Aspirin 325 mg PO DAILY 06/11/16 [History] Atorvastatin Calcium [Lipitor] 80 mg PO HS 06/11/16 [History] Calcium Carbonate/Vitamin D3 [Calcium 600 + Vit D Tablet] 1 tab PO BID 06/11/16 [History] Ergocalciferol (VITAMIN D2) [Vitamin D2] 50,000 unit PO MOTH 06/11/16 [History] Furosemide [Lasix] 40 mg PO BID PRN 06/11/16 [History] Losartan Potassium [Cozaar] 50 mg PO BID 06/11/16 [History] Mycophenolate Sodium [Myfortic] 360 mg PO BID 06/11/16 [History] Ondansetron HCl [Zofran] 4 mg PO Q8H PRN 06/11/16 [History] Potassium Chloride [K-Tab ER] 20 meq PO DAILY 06/11/16 [History] Promethazine [Phenergan] 25 mg PO Q6HR PRN 06/11/16 [History] metOLazone [Zaroxolyn] 2.5 mg PO DAILY PRN 06/11/16 [History] predniSONE [PredniSONE] 10 mg PO DAILY 11/02/16 [History] Docusate [Colace] 300 mg PO HS 03/31/17 [History] Spironolactone [Aldactone] 50 mg PO DAILY 03/31/17 [History] Ascorbic Acid [Vitamin C] 1,000 mg PO BID 04/20/19 [History] Belatacept [Nulojix] 250 mg IV Q4W 04/20/19 [History] Cranberry Conc/C/Bacill Coag [Cranberry Tablet] 1 tab PO BID 04/20/19 [History] DiphenhydraMINE [Benadryl] 25 mg PO HS 04/20/19 [History] Ferrous Sulfate 324 mg PO DAILY 04/20/19 [History] Fosfomycin Tromethamine [Monurol] 3 gm PO Q1-2D 04/20/19 [History] Metoprolol Tartrate [Lopressor] 50 mg PO BID 04/20/19 [History] Omeprazole [PriLOSEC] 40 mg PO BID 04/20/19 [History] Calcitriol [Rocaltrol] 0.25 mcg PO DAILY #30 capsule 04/23/19 [Rx] Cefdinir [Omnicef] 300 mg PO DAILY #3 capsule 04/23/19 [Rx] Sodium Bicarbonate 1,300 mg PO BID #60 tablet 04/23/19 [Rx] Allergies/Adverse Reactions: Allergy/AdvReac Type Severity Reaction Status Date / Time adhesive Allergy Rash Verified 04/20/19 10:24 clopidogrel [From Plavix] Allergy Rash Verified 04/20/19 10:24 Iodinated Contrast- Oral and Allergy Rash,Hives Verified 04/20/19 10:24 IV Dye Penicillins Allergy Rash Verified 04/20/19 10:24 plasma protein fraction Allergy Swelling Verified 04/20/19 10:24 of Lip/Tongue/Throat chloraprep Allergy Hives Uncoded 04/20/19 10:24 Date of admission: 04/20/19 13:45 Primary care physician: Jamison Reid MD Consults: 04/20/19 12:53 Consult to Nephrology [CONS] Stat Consulting Provider: Kidney Melia/WENDY/YUMIKO/CLARITA Reason for Consult: urosepsis with Robert on CKD with history of renal transplant Call Completed: No 04/20/19 14:32 Consult to Nutrition [CONS] Routine Comment: Consulting Provider: NUTRITION Reason for Dietary Consult: MST Score Discharging clinician: Eliazar Vega - Constitutional Vitals: Temp Pulse Resp BP Pulse Ox 98.7 F 80 18 129/80 99 04/23/19 08:38 04/23/19 08:38 04/23/19 08:38 04/23/19 08:38 04/23/19 08:38 General appearance: Present: A&O X 3, pleasant Exam: . - Respiratory Respiratory exam: Present: CTAB. Absent: rales, rhonchi, wheezes - Cardiovascular Cardiovascular exam: Present: RRR. Absent: gallop, rubs, systolic murmur - GI/Abdominal GI/Abdominal exam: Present: normal bowel sounds, soft. Absent: distended, tenderness - Patient Status Disposition: Home, Self-Care Condition: Fair Functional capacity at discharge: independent ambulation Overall status at discharge: patient is progressing back to baseline - Discharge Instructions Follow Up With: Jamison Reid MD [Primary Care Provider] - (1 week) Ruben Bruce MD [Partnered Physician] - (2-4 weeks) Additional Instructions: Please take your antibiotic until complete. Please follow-up with your PCP within one week. Please follow-up with your vitamin manager as scheduled. Please follow-up with [facility] as scheduled. Please resume your home medications. Please take calcitriol and sodium bicarbonate as directed. Please return for any new or worsening symptoms. - Diet and Activity Activity: increase activity as tolerated Diet: advance to your usual diet
[2019-04-23 11:36] VITALS: BP 127/80
== END 2019-04-23 14:06 | disposition home or self-care (01) | DRG 872 ==
LOC: 2ANU 10:23 → EMEROOARM 10:23 → SUATTDRO 13:45 → 2ANU 14:16
PROVIDERS: ADMIT Internal Medicine; ATTEND Internal Medicine

== ENCOUNTER 2019-10-28 12:42 | Observation (INO) ==
[2019-10-28] MEDS ORDERED: *HR* Heparin 5,000 UNIT/ML VIAL IVP ONE (13:19)
[2019-10-28] MEDS ORDERED: *HR* Heparin 5,000 UNIT/ML VIAL IVP PRN ×2 (13:19)
[2019-10-28 14:49] LABS: Hematocrit 30.1 % (35.3-44.9); Hemoglobin 9.3 g/dL (11.5-15.4); Mean Corpuscular HGB Conc 30.9 g/dL (31.6-35.5); Mean Corpuscular Hemoglobin 28.5 pg (28.0-33.3); Mean Corpuscular Volume 92.3 fL (83.0-100.0); Mean Platelet Volume 11.6 fL (9.4-12.4); Platelet Count 158 K/mcL (140-400); Red Blood Count 3.26 M/mcL (3.82-4.97); Red Cell Distribution Width 15.6 % (11.5-14.5); White Blood Count 4.8 K/mcL (4.3-11.1)
[2019-10-28 15:07] LABS: Albumin 3.2 g/dL (3.5-5.7); Albumin/Globulin Ratio 1.9 (1.1-2.2); Bilirubin,Total 0.4 mg/dL (0.3-1.0); Globulin 1.7 g/dL (2.4-3.5); Heparin anti-factor XA UFH 0.01 IU/mL (0.30-0.70); INR 1.1; Potassium 4.1 mEq/L (3.5-5.1); Prothrombin Time 12.7 Seconds (9.4-12.1); Total Protein 4.9 g/dL (6.4-8.9)
[2019-10-28] MEDS ORDERED: Naloxone 0.4 MG/ML INJ IVP PRN (16:16)
[2019-10-28] MEDS ORDERED: Doxycycline 100 MG in 0.9 % Sodium Chloride Mini Bag 100 ML IVPB SCH (16:24)
[2019-10-28] MEDS: Heparin 25,000 UNIT/250 ML D5W 25,000 UNIT/250 ML IV.SOLN IVC SCH (17:22)
[2019-10-28] MEDS: Doxycycline 100 MG CAPSULE PO SCH (20:28)
[2019-10-28] MEDS ORDERED: *HR* OxyCODONE/APAP 7.5/325 TABLET PO ONE (21:31)
[2019-10-28] MEDS ORDERED: Promethazine 12.5 MG in 0.9 % Sodium Chloride 50 ML IVP PRN (23:00)
[2019-10-28] MEDS ORDERED: *HR* Promethazine 25 MG/ML VIAL IVP PRN (23:05)
[2019-10-28] MEDS: *HR* Promethazine 25 MG/ML VIAL IVP PRN (23:08)
[2019-10-29] MEDS: Doxycycline 100 MG CAPSULE PO SCH ×2 (07:55→21:22)
[2019-10-29 08:01] LABS: Calcium 8.4 mg/dL (8.6-10.3); Potassium 4.9 mEq/L (3.5-5.1)
[2019-10-29] MEDS ORDERED: Ondansetron ODT 4 MG TAB.RAPDIS PO PRN (10:57)
[2019-10-29] MEDS: Mycophenolate Sodium (DR) 180 MG TABLET.DR PO SCH ×2 (12:00→21:23)
[2019-10-29] MEDS ORDERED: *HR* OxyCODONE/APAP 5/325 TABLET PO ONE (13:45)
[2019-10-29] MEDS ORDERED: *HR* OxyCODONE Immed Rel 5 MG TABLET PO ONE (16:11)
[2019-10-29] MEDS: Heparin 25,000 UNIT/250 ML D5W 25,000 UNIT/250 ML IV.SOLN IVC SCH (19:35)
[2019-10-29] MEDS ORDERED: Ascorbic Acid 500 MG TABLET PO SCH (21:00)
[2019-10-29] MEDS: *HR* Promethazine 25 MG/ML VIAL IVP PRN (21:24)
[2019-10-29] MEDS ORDERED: *HR* HYDROmorphone 2 MG TABLET PO ONE (21:41)
[2019-10-29 22:50] VITALS: BP 170/75
[2019-10-30] MEDS ORDERED: Cholecalciferol (D-3) 1,000 UNIT (25MCG) TABLET PO SCH (09:00)
[2019-10-30] MEDS ORDERED: Aspirin Enteric Coated 81 MG Tablet PO SCH (09:00)
[2019-10-30] MEDS ORDERED: Furosemide 40 MG TABLET PO SCH (09:00)
[2019-10-30] MEDS ORDERED: predniSONE 5 MG TABLET PO SCH (09:00)
== END 2019-10-29 23:41 | disposition short-term general hospital (02) ==
LOC: EMEROOARM 12:42 → 2ANU 12:42 → SUATTDRO 16:50 → 2ANU 17:30
PROVIDERS: ADMIT Internal Medicine; ATTEND Student in an Organized Health Care Education/Training Program

== ENCOUNTER 2020-03-10 12:26 | Inpatient (IN) ==
[2020-03-10 13:34] LABS: Basophils % 0.1 %; Eosinophils % 0.1 %; Hematocrit 26.5 % (35.3-44.9); Hemoglobin 8.1 g/dL (11.5-15.4); Immature Granulocytes % 0.6 % (0-4); Lymphocytes # 0.6 K/mcL (0.6-4.6); Lymphocytes % 7.3 %; Mean Corpuscular HGB Conc 30.6 g/dL (31.6-35.5); Mean Corpuscular Hemoglobin 29.6 pg (28.0-33.3); Mean Corpuscular Volume 96.7 fL (83.0-100.0); Mean Platelet Volume 10.8 fL (9.4-12.4); Monocytes # 0.6 K/mcL (0.0-1.3); Monocytes % 7.1 %; Neutrophils # 6.7 K/mcL (1.6-8.9); Platelet Count 232 K/mcL (140-400); Red Blood Count 2.74 M/mcL (3.82-4.97); Red Cell Distribution Width 15.4 % (11.5-14.5); Segmented Neutrophils % 84.8 %; White Blood Count 7.9 K/mcL (4.3-11.1)
[2020-03-10 13:58] LABS: Troponin I 0.04 ng/mL (< 0.04)
[2020-03-10 14:04] LABS: Bilirubin,Urine Negative (Negative); Blood,Urine Negative (Negative); Clarity,Urine Clear (Clear); Color,Urine Yellow (Yellow); Glucose,Urine (UA) 100 mg/dL (Normal); Ketones,Urine Negative (Negative); Leukocyte Esterase,Urine Negative (Negative); Nitrite,Urine Negative (Negative); Protein,Urine >=1000 mg/dL (Neg-Trace); Specific Gravity,Urine 1.013 (1.010-1.025); Urobilinogen,Urine Normal (Normal)
[2020-03-10 14:06] LABS: Bacteria,Urine None Seen per hpf (None-Few); Hyaline Casts,Urine None Seen per lpf (None-Few); Squamous Epithelial Cell,Urine Many per lpf (None-Few)
[2020-03-10 14:17] LABS: Albumin 3.6 g/dL (3.5-5.7); Albumin/Globulin Ratio 1.4 (1.1-2.2); Bilirubin,Direct 0.1 mg/dL (0.0-0.2); Bilirubin,Indirect 0.3 mg/dL (0.0-1.0); Bilirubin,Total 0.4 mg/dL (0.3-1.0); Calcium 9.1 mg/dL (8.6-10.3); Globulin 2.5 g/dL (2.4-3.5); Potassium 4.5 mEq/L (3.5-5.1); Total Protein 6.1 g/dL (6.4-8.9)
[2020-03-10] MEDS ORDERED: Cefepime HCl 1,000 MG in 0.9 % Sodium Chloride Mini Bag 100 ML IVPB ONE (16:52)
[2020-03-10] MEDS ORDERED: Ondansetron 4 MG/2 ML VIAL IVP ONE (17:03)
[2020-03-10] MEDS ORDERED: Naloxone 0.4 MG/ML INJ IVP PRN (17:39)
[2020-03-10 18:17] LABS: Procalcitonin 1.36 ng/mL (0.00-0.15)
[2020-03-10 19:27] LABS: Hepatitis B Surface Antibody < 3.10 mIU/mL
[2020-03-10 19:38] LABS: Hepatitis B Surface Antigen Nonreactive (Nonreactive)
[2020-03-10 19:45] LABS: Adenovirus Not Detected (Not Detect); Bordetella Pertussis Not Detected (Not Detect); Chlamydophila pneumoniae Not Detected (Not Detect); Coronavirus 229E Not Detected (Not Detect); Coronavirus HKU1 Not Detected (Not Detect); Coronavirus NL63 Not Detected (Not Detect); Coronavirus OC43 Not Detected (Not Detect); Human Metapneumovirus Not Detected (Not Detect); Human Rhinovirus/Enterovirus Not Detected (Not Detect); Influenza A Subtype 2009 H1 Not Detected (Not Detect); Influenza B Not Detected (Not Detect); Mycoplasma pneumoniae Not Detected (Not Detect); Parainfluenza Virus 1 Not Detected (Not Detect); Parainfluenza Virus 2 Not Detected (Not Detect); Parainfluenza Virus 3 Not Detected (Not Detect); Parainfluenza Virus 4 Not Detected (Not Detect); Respiratory Syncytial Virus Not Detected (Not Detect)
[2020-03-10] MEDS ORDERED: *HR* Promethazine 25 MG/ML VIAL IM ONE (20:29)
[2020-03-10] MEDS: hydrALAZINE 25 MG TABLET PO SCH (22:40)
[2020-03-11 00:57] LABS: Basophils % 0.3 %; Hemoglobin 7.2 g/dL (11.5-15.4)
[2020-03-11 00:59] LABS: Eosinophils # 0.1 K/mcL (0.0-0.6); Eosinophils % 0.8 %; Hematocrit 23.6 % (35.3-44.9); Immature Granulocytes % 0.4 % (0-4); Immature Platelets 1.8 % (1.1-6.1); Lymphocytes # 0.8 K/mcL (0.6-4.6); Lymphocytes % 11.1 %; Mean Corpuscular HGB Conc 30.5 g/dL (31.6-35.5); Mean Corpuscular Hemoglobin 29.8 pg (28.0-33.3); Mean Corpuscular Volume 97.5 fL (83.0-100.0); Mean Platelet Volume 10.9 fL (9.4-12.4); Monocytes # 0.7 K/mcL (0.0-1.3); Monocytes % 8.7 %; Neutrophils # 5.9 K/mcL (1.6-8.9); Platelet Count 187 K/mcL (140-400); Red Blood Count 2.42 M/mcL (3.82-4.97); Red Cell Distribution Width 15.5 % (11.5-14.5); Segmented Neutrophils % 78.7 %; White Blood Count 7.5 K/mcL (4.3-11.1)
[2020-03-11 01:00] LABS: Calcium 8.2 mg/dL (8.6-10.3); Potassium 4.6 mEq/L (3.5-5.1)
[2020-03-11 01:42] LABS: Platelet Clumps Few (Not Present); Toxic Granulation Present (Not Present)
[2020-03-11] MEDS: hydrALAZINE 25 MG TABLET PO SCH ×2 (08:10→19:55)
[2020-03-11] MEDS: allopurinoL 100 MG TABLET PO SCH (08:10)
[2020-03-11] MEDS: calcitrioL 0.25 MCG CAPSULE PO SCH (08:10)
[2020-03-11] MEDS: Mycophenolate Sodium (DR) 180 MG TABLET.DR PO SCH ×2 (08:10→19:57)
[2020-03-11] MEDS: predniSONE 10 MG TABLET PO SCH (08:12)
[2020-03-11] MEDS: Cholecalciferol (D-3) 1,000 UNIT (25MCG) TABLET PO SCH (08:12)
[2020-03-11] MEDS ORDERED: 0.9 % Sodium Chloride 1,000 ML ONE (08:56)
[2020-03-11] MEDS ORDERED: 0.9 % Sodium Chloride 250 ML IVC PRN (08:58)
[2020-03-11] MEDS ORDERED: Ascorbic Acid 500 MG TABLET PO SCH (09:00)
[2020-03-11] MEDS ORDERED: 0.9 % Sodium Chloride 1,000 ML PRIME SCH (09:00)
[2020-03-11] MEDS: Gentamicin Oint 15 GM TUBE TP PRN (09:57)
[2020-03-11 10:12] LABS: Adenovirus F 40/41 PCR Not detected (Not detect); Astrovirus PCR Not detected (Not detect); C.difficile Toxin A/B Gene PCR Not detected (Not detect); Campylobacter by PCR Not detected (Not detect); Cryptosporidium by PCR Not detected (Not detect); Cyclospora cayetanensis PCR Not detected (Not detect); E. coli O157 by PCR Not detected (Not detect); Entamoeba histolytica PCR Not detected (Not detect); Enteroaggregative E.coli(EAEC) Not detected (Not detect); Enteropathogenic E.coli(EPEC) Not detected (Not detect); Enterotoxigenic E.coli (ETEC) Not detected (Not detect); Giardia lamblia PCR Not detected (Not detect); Norovirus GI/GII PCR Not detected (Not detect); Plesiomonas shigelloides PCR Not detected (Not detect); Rotavirus A PCR Not detected (Not detect); Salmonella PCR Not detected (Not detect); Sapovirus PCR Not detected (Not detect); Shig/EnteroinvasiveE coli EIEC Not detected (Not detect); Shigalike tox-prod E coli STEC Not detected (Not detect); Vibrio PCR Not detected (Not detect); Vibrio cholerae PCR Not detected (Not detect); Yersinia enterocolitica PCR Not detected (Not detect)
[2020-03-11] MEDS: Acetaminophen 325 MG TABLET PO PRN ×3 (10:22→22:51)
[2020-03-11] MEDS ORDERED: cloNIDine HCL 0.1 MG TABLET PO PRN (11:18)
[2020-03-11] MEDS ORDERED: Vancomycin 1,250 MG/262.5 ML IV.SOLN IVPB ONE (18:00)
[2020-03-11] MEDS ORDERED: Cefepime HCl 2,000 MG in Water for inj. (sterile) 20 ML IVP ONE ×2 (18:00→20:00)
[2020-03-11] MEDS: *HR* Heparin 5,000 UNIT/ML VIAL SQ SCH (18:06)
[2020-03-11 19:27] LABS: LDH,Peritoneal Fluid 32 Units/L (No Ref Range); Total Protein,Peritoneal Fluid < 3.0 g/dL
[2020-03-11] MEDS: Aspirin Enteric Coated 325 MG Tablet PO SCH (19:55)
[2020-03-11] MEDS: Ascorbic Acid 500 MG TABLET PO SCH (20:00)
[2020-03-11 20:16] LABS: Appearance of Peritoneal Fl CLEAR (Clear)
[2020-03-11 20:21] LABS: Basophils,Peritoneal Fluid 0 %; Eosinophils,Peritoneal Fluid 0 %
[2020-03-12] MEDS: *HR* Heparin 5,000 UNIT/ML VIAL SQ SCH ×4 (00:09→21:08)
[2020-03-12 07:06] LABS: Hemoglobin 7.2 g/dL (11.5-15.4); Mean Corpuscular Hemoglobin 29.5 pg (28.0-33.3); Mean Corpuscular Volume 98.4 fL (83.0-100.0); Mean Platelet Volume 10.4 fL (9.4-12.4); Platelet Count 198 K/mcL (140-400); Red Blood Count 2.44 M/mcL (3.82-4.97); Red Cell Distribution Width 15.5 % (11.5-14.5); White Blood Count 8.4 K/mcL (4.3-11.1)
[2020-03-12 07:25] LABS: Calcium 8.2 mg/dL (8.6-10.3)
[2020-03-12] MEDS ORDERED: Vancomycin 1 EACH in 0.9 % Sodium Chloride 250 ML IVPB PRN (08:00)
[2020-03-12] MEDS: Renal Vitamin 1 CAP CAPSULE PO SCH (08:05)
[2020-03-12] MEDS: calcitrioL 0.25 MCG CAPSULE PO SCH (08:05)
[2020-03-12] MEDS: Acetaminophen 325 MG TABLET PO PRN (08:05)
[2020-03-12] MEDS: Ascorbic Acid 500 MG TABLET PO SCH ×2 (08:05→21:13)
[2020-03-12] MEDS: allopurinoL 100 MG TABLET PO SCH (08:06)
[2020-03-12] MEDS: hydrALAZINE 25 MG TABLET PO SCH ×2 (08:06→21:11)
[2020-03-12] MEDS: Mycophenolate Sodium (DR) 180 MG TABLET.DR PO SCH ×2 (08:06→21:12)
[2020-03-12] MEDS: predniSONE 10 MG TABLET PO SCH (08:06)
[2020-03-12] MEDS: Cholecalciferol (D-3) 1,000 UNIT (25MCG) TABLET PO SCH (08:08)
[2020-03-12] MEDS ORDERED: GENTAMICIN SULFATE TP SCH (09:00)
[2020-03-12] MEDS ORDERED: Isovue-370 500 ML BOTTLE IVP ONE (09:08)
[2020-03-12] MEDS ORDERED: predniSONE 20 MG TABLET PO ONE (09:14)
[2020-03-12] MEDS: MetroNIDAZOLE 500 MG/100 ML 500 MG/100 ML BAG IVPB SCH ×3 (10:14→23:51)
[2020-03-12] MEDS: Gentamicin Oint 15 GM TUBE TP PRN (10:14)
[2020-03-12] MEDS ORDERED: Isovue-370 500 ML BOTTLE PO ONE (12:42)
[2020-03-12] MEDS: *HR* OxyCODONE/APAP 5/325 TABLET PO PRN (14:07)
[2020-03-12] MEDS ORDERED: *HR* FentaNYL (PF) 100 MCG/2 ML VIAL ONE (14:50)
[2020-03-12] MEDS ORDERED: *HR* FentaNYL (PF) 100 MCG/2 ML VIAL IVP ONE (15:03)
[2020-03-12] MEDS ORDERED: 0.9 % Sodium Chloride 500 ML IVC ONE (15:19)
[2020-03-12] MEDS: Cefepime HCl 1,000 MG in Water for inj. (sterile) 10 ML IVP SCH (17:24)
[2020-03-12] MEDS ORDERED: Cefepime HCl 2,000 MG in Water for inj. (sterile) 20 ML IVP SCH (18:00)
[2020-03-12] MEDS: Aspirin Enteric Coated 325 MG Tablet PO SCH (21:10)
[2020-03-13] MEDS: *HR* Heparin 5,000 UNIT/ML VIAL SQ SCH ×3 (05:26→20:49)
[2020-03-13] MEDS ORDERED: 0.9 % Sodium Chloride 250 ML IVC PRN (09:15)
[2020-03-13] MEDS: allopurinoL 100 MG TABLET PO SCH (09:39)
[2020-03-13] MEDS: Ascorbic Acid 500 MG TABLET PO SCH ×2 (09:39→20:48)
[2020-03-13] MEDS: Cholecalciferol (D-3) 1,000 UNIT (25MCG) TABLET PO SCH (09:39)
[2020-03-13] MEDS: predniSONE 10 MG TABLET PO SCH (09:39)
[2020-03-13] MEDS: Mycophenolate Sodium (DR) 180 MG TABLET.DR PO SCH ×2 (09:40→20:48)
[2020-03-13] MEDS: calcitrioL 0.25 MCG CAPSULE PO SCH (09:40)
[2020-03-13] MEDS: Renal Vitamin 1 CAP CAPSULE PO SCH (09:40)
[2020-03-13 09:59] LABS: Hematocrit 23.3 % (35.3-44.9); Hemoglobin 7.1 g/dL (11.5-15.4); Immature Granulocytes % 1.4 % (0-4); Lymphocytes # 0.6 K/mcL (0.6-4.6); Lymphocytes % 6.6 %; Mean Corpuscular HGB Conc 30.5 g/dL (31.6-35.5); Mean Corpuscular Volume 98.3 fL (83.0-100.0); Mean Platelet Volume 10.5 fL (9.4-12.4); Monocytes # 0.5 K/mcL (0.0-1.3); Monocytes % 5.7 %; Neutrophils # 7.5 K/mcL (1.6-8.9); Platelet Count 199 K/mcL (140-400); Red Blood Count 2.37 M/mcL (3.82-4.97); Red Cell Distribution Width 15.4 % (11.5-14.5); Segmented Neutrophils % 86.3 %; White Blood Count 8.7 K/mcL (4.3-11.1)
[2020-03-13 10:29] LABS: Calcium 8.3 mg/dL (8.6-10.3); Potassium 4.1 mEq/L (3.5-5.1)
[2020-03-13] MEDS: *HR* OxyCODONE/APAP 5/325 TABLET PO PRN (12:33)
[2020-03-13] MEDS: MetroNIDAZOLE 500 MG/100 ML 500 MG/100 ML BAG IVPB SCH ×3 (14:25→23:30)
[2020-03-13] MEDS: hydrALAZINE 25 MG TABLET PO SCH ×2 (16:20→20:48)
[2020-03-13] MEDS: Furosemide 40 MG TABLET PO SCH (16:20)
[2020-03-13] MEDS: Cefepime HCl 1,000 MG in Water for inj. (sterile) 10 ML IVP SCH (16:24)
[2020-03-13] MEDS: Aspirin Enteric Coated 325 MG Tablet PO SCH (20:48)
[2020-03-13] MEDS: Acetaminophen 325 MG TABLET PO PRN (23:30)
[2020-03-14] MEDS: *HR* Heparin 5,000 UNIT/ML VIAL SQ SCH ×3 (05:32→22:01)
[2020-03-14] MEDS: *HR* OxyCODONE/APAP 5/325 TABLET PO PRN ×2 (05:32→11:41)
[2020-03-14] MEDS: Mycophenolate Sodium (DR) 180 MG TABLET.DR PO SCH ×2 (07:32→22:01)
[2020-03-14] MEDS: Ascorbic Acid 500 MG TABLET PO SCH ×2 (07:32→22:00)
[2020-03-14] MEDS: allopurinoL 100 MG TABLET PO SCH (07:33)
[2020-03-14] MEDS: predniSONE 10 MG TABLET PO SCH (07:34)
[2020-03-14] MEDS: hydrALAZINE 25 MG TABLET PO SCH ×2 (07:34→22:00)
[2020-03-14] MEDS: Furosemide 40 MG TABLET PO SCH (07:34)
[2020-03-14] MEDS: calcitrioL 0.25 MCG CAPSULE PO SCH (07:34)
[2020-03-14] MEDS: Renal Vitamin 1 CAP CAPSULE PO SCH (07:34)
[2020-03-14] MEDS: Cholecalciferol (D-3) 1,000 UNIT (25MCG) TABLET PO SCH (07:35)
[2020-03-14] MEDS: MetroNIDAZOLE 500 MG/100 ML 500 MG/100 ML BAG IVPB SCH ×2 (07:35→15:12)
[2020-03-14] MEDS: Ondansetron 4 MG/2 ML VIAL IVP PRN (17:08)
[2020-03-14 17:09] LABS: Basophils % 0.3 %; Eosinophils # 0.1 K/mcL (0.0-0.6); Eosinophils % 0.8 %; Hematocrit 23.6 % (35.3-44.9); Hemoglobin 7.2 g/dL (11.5-15.4); Immature Granulocytes % 2.1 % (0-4); Lymphocytes % 13.9 %; Mean Corpuscular HGB Conc 30.5 g/dL (31.6-35.5); Mean Corpuscular Hemoglobin 29.6 pg (28.0-33.3); Mean Corpuscular Volume 97.1 fL (83.0-100.0); Mean Platelet Volume 10.5 fL (9.4-12.4); Monocytes # 0.6 K/mcL (0.0-1.3); Monocytes % 7.9 %; Neutrophils # 5.4 K/mcL (1.6-8.9); Platelet Count 195 K/mcL (140-400); Red Blood Count 2.43 M/mcL (3.82-4.97); Red Cell Distribution Width 15.4 % (11.5-14.5); White Blood Count 7.2 K/mcL (4.3-11.1)
[2020-03-14 17:29] LABS: Calcium 8.1 mg/dL (8.6-10.3); Potassium 4.4 mEq/L (3.5-5.1)
[2020-03-14] MEDS: Cefepime HCl 1,000 MG in Water for inj. (sterile) 10 ML IVP SCH (18:00)
[2020-03-14] MEDS: Aspirin Enteric Coated 325 MG Tablet PO SCH (22:00)
[2020-03-15] MEDS: MetroNIDAZOLE 500 MG/100 ML 500 MG/100 ML BAG IVPB SCH ×2 (00:30→09:32)
[2020-03-15] MEDS: *HR* Heparin 5,000 UNIT/ML VIAL SQ SCH ×3 (05:50→20:32)
[2020-03-15 06:13] LABS: Basophils % 0.3 %; Eosinophils # 0.1 K/mcL (0.0-0.6); Eosinophils % 1.6 %; Hematocrit 22.7 % (35.3-44.9); Immature Granulocytes % 2.8 % (0-4); Mean Corpuscular HGB Conc 30.8 g/dL (31.6-35.5); Mean Corpuscular Hemoglobin 30.2 pg (28.0-33.3); Mean Corpuscular Volume 97.8 fL (83.0-100.0); Mean Platelet Volume 10.4 fL (9.4-12.4); Monocytes # 0.6 K/mcL (0.0-1.3); Neutrophils # 4.8 K/mcL (1.6-8.9); Platelet Count 178 K/mcL (140-400); Red Blood Count 2.32 M/mcL (3.82-4.97); Red Cell Distribution Width 15.4 % (11.5-14.5); Segmented Neutrophils % 71.3 %; White Blood Count 6.8 K/mcL (4.3-11.1)
[2020-03-15 06:32] LABS: Calcium 7.9 mg/dL (8.6-10.3); Potassium 4.2 mEq/L (3.5-5.1)
[2020-03-15] MEDS ORDERED: 0.9 % Sodium Chloride 250 ML IVC PRN (06:37)
[2020-03-15] MEDS ORDERED: Lidocaine -MPF 1% 2 ML VIAL ID ONE (08:17)
[2020-03-15] MEDS ORDERED: Lidocaine 1% 20 ML MDV ONE (08:26)
[2020-03-15] MEDS: allopurinoL 100 MG TABLET PO SCH (09:32)
[2020-03-15] MEDS: calcitrioL 0.25 MCG CAPSULE PO SCH (09:32)
[2020-03-15] MEDS: Ascorbic Acid 500 MG TABLET PO SCH ×2 (09:32→20:31)
[2020-03-15] MEDS: Renal Vitamin 1 CAP CAPSULE PO SCH (09:32)
[2020-03-15] MEDS: Cholecalciferol (D-3) 1,000 UNIT (25MCG) TABLET PO SCH (09:33)
[2020-03-15] MEDS: Mycophenolate Sodium (DR) 180 MG TABLET.DR PO SCH ×2 (09:33→20:31)
[2020-03-15] MEDS: predniSONE 10 MG TABLET PO SCH (09:33)
[2020-03-15] MEDS: hydrALAZINE 25 MG TABLET PO SCH ×2 (13:06→20:31)
[2020-03-15] MEDS: metroNIDAZOLE 500 MG TABLET PO SCH ×2 (15:18→20:32)
[2020-03-15] MEDS ORDERED: Aminoglycoside Consult 1 EACH MC ONE (15:18)
[2020-03-15] MEDS: cefTRIAXone 2,000 MG in 0.9 % Sodium Chloride Mini Bag 100 ML IVPB SCH (15:46)
[2020-03-15] MEDS: Ondansetron 4 MG/2 ML VIAL IVP PRN (16:34)
[2020-03-15] MEDS: Acetaminophen 325 MG TABLET PO PRN (20:31)
[2020-03-15] MEDS: Aspirin Enteric Coated 325 MG Tablet PO SCH (20:32)
[2020-03-16] MEDS: *HR* Heparin 5,000 UNIT/ML VIAL SQ SCH ×2 (05:30→14:01)
[2020-03-16 05:48] LABS: Basophils % 0.3 %; Eosinophils # 0.2 K/mcL (0.0-0.6); Eosinophils % 2.3 %; Hematocrit 24.5 % (35.3-44.9); Hemoglobin 7.4 g/dL (11.5-15.4); Immature Granulocytes % 3.1 % (0-4); Lymphocytes % 14.6 %; Mean Corpuscular HGB Conc 30.2 g/dL (31.6-35.5); Mean Corpuscular Hemoglobin 29.6 pg (28.0-33.3); Monocytes # 0.6 K/mcL (0.0-1.3); Monocytes % 8.2 %; Neutrophils # 4.9 K/mcL (1.6-8.9); Platelet Count 189 K/mcL (140-400); Red Cell Distribution Width 15.6 % (11.5-14.5); Segmented Neutrophils % 71.5 %; White Blood Count 6.9 K/mcL (4.3-11.1)
[2020-03-16 06:10] LABS: Calcium 8.2 mg/dL (8.6-10.3); Potassium 4.2 mEq/L (3.5-5.1)
[2020-03-16] MEDS: Mycophenolate Sodium (DR) 180 MG TABLET.DR PO SCH (08:55)
[2020-03-16] MEDS: hydrALAZINE 25 MG TABLET PO SCH (08:55)
[2020-03-16] MEDS: Ascorbic Acid 500 MG TABLET PO SCH (08:55)
[2020-03-16] MEDS: calcitrioL 0.25 MCG CAPSULE PO SCH (08:55)
[2020-03-16] MEDS: Renal Vitamin 1 CAP CAPSULE PO SCH (08:55)
[2020-03-16] MEDS: metroNIDAZOLE 500 MG TABLET PO SCH ×2 (08:55→14:04)
[2020-03-16] MEDS: Furosemide 40 MG TABLET PO SCH (08:55)
[2020-03-16] MEDS: predniSONE 10 MG TABLET PO SCH (08:56)
[2020-03-16] MEDS: allopurinoL 100 MG TABLET PO SCH (08:56)
[2020-03-16] MEDS: Cholecalciferol (D-3) 1,000 UNIT (25MCG) TABLET PO SCH (08:56)
[2020-03-16 10:20] VITALS: BP 164/89
[2020-03-16] MEDS: cefTRIAXone 2,000 MG in 0.9 % Sodium Chloride Mini Bag 100 ML IVPB SCH (14:04)
[2020-03-16] MEDS ORDERED: hydrALAZINE 25 MG TABLET PO SCH (15:00)
== END 2020-03-16 15:19 | disposition home health service (06) | DRG 356 ==
LOC: 2ANU 12:26 → EMEROOARM 12:26 → 2ANU 17:53 → SUATTDRO 03-12 12:43
PROVIDERS: ADMIT Internal Medicine; ATTEND Internal Medicine
PROC: IRDRAIN (2020-03-12 14:00)

== ENCOUNTER 2020-05-24 14:35 | Observation (INO) ==
[2020-05-24 15:21] LABS: Basophils % 0.5 %; Eosinophils % 0.4 %; Hematocrit 44.2 % (35.3-44.9); Hemoglobin 13.4 g/dL (11.5-15.4); Immature Granulocytes % 0.4 % (0-4); Mean Corpuscular HGB Conc 30.3 g/dL (31.6-35.5); Mean Corpuscular Volume 99.1 fL (83.0-100.0); Mean Platelet Volume 10.9 fL (9.4-12.4); Monocytes # 0.5 K/mcL (0.0-1.3); Monocytes % 5.9 %; Neutrophils # 6.2 K/mcL (1.6-8.9); Platelet Count 170 K/mcL (140-400); Red Blood Count 4.46 M/mcL (3.82-4.97); Segmented Neutrophils % 79.8 %; White Blood Count 7.7 K/mcL (4.3-11.1)
[2020-05-24 15:22] LABS: INR 1.1; Prothrombin Time 12.2 Seconds (9.4-12.1)
[2020-05-24 15:25] LABS: Activated Partial Thrombo Time 28.2 Seconds (26.0-36.0)
[2020-05-24 15:40] LABS: Bacteria,Urine Few per hpf (None-Few); Bilirubin,Urine Negative (Negative); Blood,Urine Negative (Negative); Clarity,Urine Clear (Clear); Color,Urine Light-Yellow (Yellow); Glucose,Urine (UA) 50 mg/dL (Normal); Ketones,Urine Negative (Negative); Leukocyte Esterase,Urine Trace (Negative); Mucus,Urine Few per lpf (None-Few); Nitrite,Urine Negative (Negative); PH,Urine 6.5 pH Units (5.0-8.0); Protein,Urine >=600 mg/dL (Neg-Trace); Specific Gravity,Urine 1.019 (1.010-1.025); Squamous Epithelial Cell,Urine Moderate per hpf (None-Few); Urobilinogen,Urine Normal (Normal); WBC,Urine 15-30 per hpf (0-3)
[2020-05-24 15:49] LABS: Alanine Aminotransferase 10 Units/L (7-52); Albumin/Globulin Ratio 2.1 (1.1-2.2); Alkaline Phosphatase 41 Units/L (34-104); Aspartate Amino Transferase 15 Units/L (13-39); BUN/Creatinine Ratio 4 (6-26); Bilirubin,Indirect 0.3 mg/dL (0.0-1.0); Bilirubin,Total 0.3 mg/dL (0.3-1.0); Blood Urea Nitrogen 62 mg/dL (6-20); Calcium 8.8 mg/dL (8.6-10.3); Carbon Dioxide 20 mEq/L (23-29); Chloride 98 mEq/L (98-107); Globulin 1.9 g/dL (2.4-3.5); Glucose 121 mg/dL (70-105); Osmolality,Calculated 301 (280-300); Potassium 4.3 mEq/L (3.5-5.1); Sodium 136 mEq/L (136-145); Total Protein 5.9 g/dL (6.4-8.9); Troponin I < 0.03 ng/mL (< 0.04); eGFR For African Americans 3 (> 60); eGFR For Non-African Americans 2 (> 60)
[2020-05-24] MEDS ORDERED: Ertapenem 500 MG in 0.9 % Sodium Chloride Mini Bag 100 ML IVPB ONE (16:50)
[2020-05-24] MEDS ORDERED: Ertapenem 1,000 MG in 0.9 % Sodium Chloride Mini Bag 100 ML IVPB ONE (16:50)
[2020-05-24] MEDS ORDERED: Naloxone 0.4 MG/ML INJ IVP PRN (17:45)
[2020-05-24] MEDS ORDERED: Ondansetron 4 MG/2 ML VIAL IVP PRN (17:45)
[2020-05-24] MEDS ORDERED: Acetaminophen 325 MG TABLET PO PRN (18:11)
[2020-05-24] MEDS ORDERED: *HR* HYDROcodone/Acet 5/325 mg TABLET PO PRN (18:12)
[2020-05-24] MEDS ORDERED: Aspirin Enteric Coated 325 MG Tablet PO SCH (21:00)
[2020-05-24] MEDS: hydrALAZINE 25 MG TABLET PO SCH (21:06)
[2020-05-24] MEDS: Mycophenolate Sodium (DR) 180 MG TABLET.DR PO SCH (21:06)
[2020-05-24] MEDS ORDERED: Perit. Dialysis with Dex 2.5 % 12,000 ML PERITONEAL ONE (22:17)
[2020-05-25 01:58] LABS: Basophils % 0.5 %; Eosinophils # 0.1 K/mcL (0.0-0.6); Eosinophils % 1.4 %; Hematocrit 37.7 % (35.3-44.9); Immature Granulocytes % 0.5 % (0-4); Lymphocytes # 1.5 K/mcL (0.6-4.6); Lymphocytes % 25.4 %; Mean Corpuscular HGB Conc 30.8 g/dL (31.6-35.5); Mean Corpuscular Hemoglobin 30.1 pg (28.0-33.3); Mean Corpuscular Volume 97.7 fL (83.0-100.0); Mean Platelet Volume 11.1 fL (9.4-12.4); Monocytes # 0.6 K/mcL (0.0-1.3); Monocytes % 10.4 %; Neutrophils # 3.6 K/mcL (1.6-8.9); Platelet Count 143 K/mcL (140-400); Red Blood Count 3.86 M/mcL (3.82-4.97); Red Cell Distribution Width 14.9 % (11.5-14.5); Segmented Neutrophils % 61.8 %; White Blood Count 5.9 K/mcL (4.3-11.1)
[2020-05-25 02:02] LABS: Hemoglobin 11.6 g/dL (11.5-15.4)
[2020-05-25 02:16] LABS: Phosphorous 9.4 mg/dL (2.7-4.5); Potassium 3.7 mEq/L (3.5-5.1)
[2020-05-25 02:44] LABS: Hepatitis B Surface Antibody < 3.10 mIU/mL
[2020-05-25 02:55] LABS: Hepatitis B Surface Antigen Nonreactive (Nonreactive)
[2020-05-25] MEDS: hydrALAZINE 25 MG TABLET PO SCH (08:48)
[2020-05-25] MEDS: Mycophenolate Sodium (DR) 180 MG TABLET.DR PO SCH (08:48)
[2020-05-25] MEDS ORDERED: Ascorbic Acid 500 MG TABLET PO SCH (09:00)
[2020-05-25] MEDS ORDERED: allopurinoL 100 MG TABLET PO SCH (09:00)
[2020-05-25] MEDS ORDERED: Furosemide 40 MG TABLET PO SCH (09:00)
[2020-05-25] MEDS ORDERED: Renal Vitamin 1 CAP CAPSULE PO SCH (09:00)
[2020-05-25] MEDS ORDERED: Magnesium Oxide 400 MG TABLET PO SCH (09:00)
[2020-05-25] MEDS ORDERED: Cholecalciferol (D-3) 1,000 UNIT (25MCG) TABLET PO SCH (09:00)
[2020-05-25] MEDS ORDERED: Gentamicin Oint 15 GM TUBE TP SCH ×2 (09:00)
[2020-05-25] MEDS ORDERED: predniSONE 10 MG TABLET PO SCH (09:00)
[2020-05-25 11:52] VITALS: BP 118/74
[2020-05-25] MEDS ORDERED: Fosfomycin Tromethamine 3 GM Packet PO ONE (13:15)
[2020-05-26] MEDS ORDERED: calcitrioL 0.25 MCG CAPSULE PO SCH (09:00)
== END 2020-05-25 14:33 | disposition home or self-care (01) ==
LOC: 2ANU 14:35 → EMEROOARM 14:35 → 2ANU 20:05
PROVIDERS: ADMIT Internal Medicine; ATTEND Internal Medicine

== ENCOUNTER 2020-06-22 14:41 | Inpatient (IN) ==
[2020-06-22] MEDS ORDERED: Ondansetron 4 MG/2 ML VIAL IVP ONE (15:25)
[2020-06-22] MEDS ORDERED: 0.9 % Sodium Chloride 1,000 ML IVC ONE (15:25)
[2020-06-22 15:34] LABS: Bilirubin,Urine Negative (Negative); Blood,Urine Small (Negative); Clarity,Urine Clear (Clear); Color,Urine Yellow (Yellow); Glucose,Urine (UA) Normal (Normal); Ketones,Urine Negative (Negative); Leukocyte Esterase,Urine Small (Negative); Nitrite,Urine Negative (Negative); Protein,Urine >=300 mg/dL (Neg-Trace); Urobilinogen,Urine Normal (Normal)
[2020-06-22 15:56] LABS: Bacteria,Urine Moderate per hpf (None-Few); Squamous Epithelial Cell,Urine Many per hpf (None-Few); WBC,Urine TNTC per hpf (0-3)
[2020-06-22 16:13] LABS: Calcium 8.6 mg/dL (8.6-10.3); Potassium 4.3 mEq/L (3.5-5.1)
[2020-06-22] MEDS ORDERED: Ertapenem 1,000 MG in 0.9 % Sodium Chloride Mini Bag 100 ML IVPB STA (16:15)
[2020-06-22 16:53] LABS: Basophils % 0.3 %; Eosinophils % 0.4 %; Hematocrit 35.2 % (35.3-44.9); Hemoglobin 11.2 g/dL (11.5-15.4); Immature Granulocytes % 0.5 % (0-4); Lymphocytes # 0.7 K/mcL (0.6-4.6); Lymphocytes % 8.6 %; Mean Corpuscular HGB Conc 31.8 g/dL (31.6-35.5); Mean Corpuscular Hemoglobin 29.4 pg (28.0-33.3); Mean Corpuscular Volume 92.4 fL (83.0-100.0); Mean Platelet Volume 10.7 fL (9.4-12.4); Monocytes # 0.6 K/mcL (0.0-1.3); Monocytes % 7.7 %; Neutrophils # 6.5 K/mcL (1.6-8.9); Platelet Count 131 K/mcL (140-400); Red Blood Count 3.81 M/mcL (3.82-4.97); Red Cell Distribution Width 14.1 % (11.5-14.5); Segmented Neutrophils % 82.5 %; White Blood Count 7.9 K/mcL (4.3-11.1)
[2020-06-22] MEDS ORDERED: Naloxone 0.4 MG/ML INJ IVP PRN (18:04)
[2020-06-22] MEDS ORDERED: Ondansetron 4 MG/2 ML VIAL IVP PRN (18:04)
[2020-06-22] MEDS ORDERED: Acetaminophen 325 MG TABLET PO PRN (18:04)
[2020-06-22] MEDS ORDERED: Perit. Dialysis with Dex 1.5 % 12,000 ML PERITONEAL ONE (19:00)
[2020-06-22] MEDS ORDERED: Furosemide 40 MG TABLET PO PRN (19:23)
[2020-06-22] MEDS: Ascorbic Acid 500 MG TABLET PO SCH (22:02)
[2020-06-22] MEDS: Aspirin Enteric Coated 325 MG Tablet PO SCH (22:02)
[2020-06-22] MEDS: hydrALAZINE 25 MG TABLET PO SCH (22:02)
[2020-06-22] MEDS: *HR* Promethazine 25 MG/ML VIAL IVP PRN (22:03)
[2020-06-22] MEDS: Mycophenolate Sodium (DR) 180 MG TABLET.DR PO SCH (22:03)
[2020-06-22] MEDS: *HR* Heparin 5,000 UNIT/ML VIAL SQ SCH (22:04)
[2020-06-23 06:10] LABS: Basophils % 0.6 %; Eosinophils # 0.1 K/mcL (0.0-0.6); Eosinophils % 2.3 %; Hematocrit 32.3 % (35.3-44.9); Hemoglobin 10.5 g/dL (11.5-15.4); Immature Granulocytes % 0.6 % (0-4); Lymphocytes # 0.9 K/mcL (0.6-4.6); Mean Corpuscular HGB Conc 32.5 g/dL (31.6-35.5); Mean Corpuscular Hemoglobin 30.3 pg (28.0-33.3); Mean Corpuscular Volume 93.4 fL (83.0-100.0); Mean Platelet Volume 10.8 fL (9.4-12.4); Monocytes # 0.5 K/mcL (0.0-1.3); Monocytes % 9.6 %; Neutrophils # 3.7 K/mcL (1.6-8.9); Platelet Count 120 K/mcL (140-400); Red Blood Count 3.46 M/mcL (3.82-4.97); Red Cell Distribution Width 14.2 % (11.5-14.5); Segmented Neutrophils % 69.9 %; White Blood Count 5.2 K/mcL (4.3-11.1)
[2020-06-23] MEDS: *HR* Heparin 5,000 UNIT/ML VIAL SQ SCH ×3 (06:24→21:25)
[2020-06-23 06:34] LABS: Albumin/Globulin Ratio 1.6 (1.1-2.2); Bilirubin,Total 0.3 mg/dL (0.3-1.0); Globulin 1.9 g/dL (2.4-3.5); Magnesium 2.3 mg/dL (1.6-2.6); Phosphorous 9.2 mg/dL (2.7-4.5); Potassium 3.5 mEq/L (3.5-5.1); Total Protein 4.9 g/dL (6.4-8.9)
[2020-06-23 06:47] LABS: Hepatitis B Surface Antibody < 3.10 mIU/mL
[2020-06-23 06:58] LABS: Hepatitis B Surface Antigen Nonreactive (Nonreactive)
[2020-06-23] MEDS ORDERED: calcitrioL 0.25 MCG CAPSULE PO SCH (09:00)
[2020-06-23] MEDS ORDERED: [UNRECOGNIZED DRUG - OTHER] PERITONEAL ONE (11:00)
[2020-06-23] MEDS: Cholecalciferol (D-3) 1,000 UNIT (25MCG) TABLET PO SCH (11:07)
[2020-06-23] MEDS: Renal Vitamin 1 CAP CAPSULE PO SCH (11:08)
[2020-06-23] MEDS: Mycophenolate Sodium (DR) 180 MG TABLET.DR PO SCH ×2 (11:08→21:25)
[2020-06-23] MEDS: Ascorbic Acid 500 MG TABLET PO SCH ×2 (11:08→21:25)
[2020-06-23] MEDS: Magnesium Oxide 400 MG TABLET PO SCH (11:08)
[2020-06-23] MEDS: Gentamicin Oint 15 GM TUBE TP SCH (11:09)
[2020-06-23] MEDS: allopurinoL 100 MG TABLET PO SCH (11:09)
[2020-06-23] MEDS: hydrALAZINE 25 MG TABLET PO SCH ×2 (11:10→21:25)
[2020-06-23] MEDS: predniSONE 5 MG TABLET PO SCH (11:10)
[2020-06-23 11:23] LABS: RBC,Peritoneal Fluid < 2000 RBC/mcL
[2020-06-23] MEDS: *HR* Promethazine 25 MG/ML VIAL IVP PRN ×2 (15:08→21:26)
[2020-06-23] MEDS: MetroNIDAZOLE 500 MG/100 ML 500 MG/100 ML BAG IVPB SCH ×2 (15:12→23:34)
[2020-06-23 16:35] LABS: Appearance of Peritoneal Fl CLEAR (Clear)
[2020-06-23] MEDS ORDERED: Perit. Dialysis with Dex 1.5 % 12,000 ML PERITONEAL ONE (19:00)
[2020-06-23] MEDS ORDERED: Perit. Dialysis with Dex 2.5 % 12,000 ML PERITONEAL ONE (19:00)
[2020-06-23] MEDS: Aspirin Enteric Coated 325 MG Tablet PO SCH (21:25)
[2020-06-23 21:51] LABS: Adenovirus F 40/41 PCR Not detected (Not detect); Astrovirus PCR Not detected (Not detect); C.difficile Toxin A/B Gene PCR Not detected (Not detect); Campylobacter by PCR Not detected (Not detect); Cryptosporidium by PCR Not detected (Not detect); Cyclospora cayetanensis PCR Not detected (Not detect); E. coli O157 by PCR Not detected (Not detect); Entamoeba histolytica PCR Not detected (Not detect); Enteroaggregative E.coli(EAEC) Not detected (Not detect); Enteropathogenic E.coli(EPEC) Not detected (Not detect); Enterotoxigenic E.coli (ETEC) Not detected (Not detect); Giardia lamblia PCR Not detected (Not detect); Norovirus GI/GII PCR Not detected (Not detect); Plesiomonas shigelloides PCR Not detected (Not detect); Rotavirus A PCR Not detected (Not detect); Salmonella PCR Not detected (Not detect); Sapovirus PCR Not detected (Not detect); Shig/EnteroinvasiveE coli EIEC Not detected (Not detect); Shigalike tox-prod E coli STEC Not detected (Not detect); Vibrio PCR Not detected (Not detect); Vibrio cholerae PCR Not detected (Not detect); Yersinia enterocolitica PCR Not detected (Not detect)
[2020-06-24] MEDS: *HR* Promethazine 25 MG/ML VIAL IVP PRN (03:45)
[2020-06-24 04:34] LABS: Basophils % 0.4 %; Eosinophils # 0.1 K/mcL (0.0-0.6); Eosinophils % 1.9 %; Hematocrit 37.8 % (35.3-44.9); Immature Granulocytes % 0.6 % (0-4); Lymphocytes # 0.8 K/mcL (0.6-4.6); Lymphocytes % 14.9 %; Mean Corpuscular HGB Conc 31.7 g/dL (31.6-35.5); Mean Corpuscular Hemoglobin 29.1 pg (28.0-33.3); Mean Corpuscular Volume 91.7 fL (83.0-100.0); Mean Platelet Volume 10.9 fL (9.4-12.4); Monocytes # 0.6 K/mcL (0.0-1.3); Monocytes % 11.1 %; Neutrophils # 3.8 K/mcL (1.6-8.9); Platelet Count 156 K/mcL (140-400); Red Blood Count 4.12 M/mcL (3.82-4.97); Segmented Neutrophils % 71.1 %; White Blood Count 5.3 K/mcL (4.3-11.1)
[2020-06-24 04:46] LABS: Calcium 8.4 mg/dL (8.6-10.3); Magnesium 2.3 mg/dL (1.6-2.6); Potassium 3.3 mEq/L (3.5-5.1)
[2020-06-24 04:59] LABS: Phosphorous 8.6 mg/dL (2.7-4.5)
[2020-06-24] MEDS: *HR* Heparin 5,000 UNIT/ML VIAL SQ SCH ×3 (05:59→20:43)
[2020-06-24] MEDS ORDERED: Prochlorperazine 10 MG/2 ML VIAL IVP PRN (06:08)
[2020-06-24] MEDS: Mycophenolate Sodium (DR) 180 MG TABLET.DR PO SCH ×2 (07:43→20:42)
[2020-06-24] MEDS: Cholecalciferol (D-3) 1,000 UNIT (25MCG) TABLET PO SCH (07:43)
[2020-06-24] MEDS: Magnesium Oxide 400 MG TABLET PO SCH (07:43)
[2020-06-24] MEDS: hydrALAZINE 25 MG TABLET PO SCH ×2 (07:43→20:44)
[2020-06-24] MEDS: predniSONE 5 MG TABLET PO SCH (07:44)
[2020-06-24] MEDS: Renal Vitamin 1 CAP CAPSULE PO SCH (07:44)
[2020-06-24] MEDS: allopurinoL 100 MG TABLET PO SCH (07:44)
[2020-06-24] MEDS: MetroNIDAZOLE 500 MG/100 ML 500 MG/100 ML BAG IVPB SCH ×2 (07:44→16:28)
[2020-06-24] MEDS: Ascorbic Acid 500 MG TABLET PO SCH ×2 (07:44→20:43)
[2020-06-24] MEDS ORDERED: cefTRIAXone 1,000 MG in Water for inj. (sterile) 10 ML IVP SCH (09:00)
[2020-06-24] MEDS ORDERED: Perit. Dialysis with Dex 2.5 % 12,000 ML PERITONEAL ONE (19:00)
[2020-06-24] MEDS: Aspirin Enteric Coated 325 MG Tablet PO SCH (20:43)
[2020-06-25] MEDS: MetroNIDAZOLE 500 MG/100 ML 500 MG/100 ML BAG IVPB SCH ×2 (00:10→08:11)
[2020-06-25 00:39] LABS: Basophils % 0.6 %; Eosinophils # 0.1 K/mcL (0.0-0.6); Eosinophils % 2.4 %; Hematocrit 34.3 % (35.3-44.9); Hemoglobin 11.1 g/dL (11.5-15.4); Immature Granulocytes % 0.6 % (0-4); Lymphocytes # 1.1 K/mcL (0.6-4.6); Lymphocytes % 21.7 %; Mean Corpuscular HGB Conc 32.4 g/dL (31.6-35.5); Mean Corpuscular Hemoglobin 29.9 pg (28.0-33.3); Mean Corpuscular Volume 92.5 fL (83.0-100.0); Mean Platelet Volume 10.6 fL (9.4-12.4); Monocytes # 0.7 K/mcL (0.0-1.3); Monocytes % 13.2 %; Platelet Count 135 K/mcL (140-400); Red Blood Count 3.71 M/mcL (3.82-4.97); Red Cell Distribution Width 14.2 % (11.5-14.5); Segmented Neutrophils % 61.5 %; White Blood Count 4.9 K/mcL (4.3-11.1)
[2020-06-25 00:51] LABS: Calcium 8.1 mg/dL (8.6-10.3); Potassium 3.5 mEq/L (3.5-5.1)
[2020-06-25] MEDS: *HR* Heparin 5,000 UNIT/ML VIAL SQ SCH (05:27)
[2020-06-25] MEDS: Mycophenolate Sodium (DR) 180 MG TABLET.DR PO SCH (08:09)
[2020-06-25] MEDS: Renal Vitamin 1 CAP CAPSULE PO SCH (08:10)
[2020-06-25] MEDS: Ascorbic Acid 500 MG TABLET PO SCH (08:10)
[2020-06-25] MEDS: Cholecalciferol (D-3) 1,000 UNIT (25MCG) TABLET PO SCH (08:10)
[2020-06-25] MEDS: predniSONE 5 MG TABLET PO SCH (08:11)
[2020-06-25] MEDS: Magnesium Oxide 400 MG TABLET PO SCH (08:11)
[2020-06-25] MEDS: hydrALAZINE 25 MG TABLET PO SCH (08:11)
[2020-06-25] MEDS: allopurinoL 100 MG TABLET PO SCH (08:11)
[2020-06-25] MEDS: Gentamicin Oint 15 GM TUBE TP SCH (09:33)
[2020-06-25 10:17] VITALS: BP 102/71
== END 2020-06-25 15:02 | disposition home or self-care (01) | DRG 698 ==
LOC: 2ANU 14:41 → EMEROOARM 14:41 → SUATTDRO 17:50 → 2ANU 18:44
PROVIDERS: ADMIT Internal Medicine; ATTEND Student in an Organized Health Care Education/Training Program

== ENCOUNTER 2020-07-26 17:44 | Observation (INO) ==
[2020-07-26 20:01] LABS: Basophils % 0.1 %; Eosinophils # 0.1 K/mcL (0.0-0.6); Eosinophils % 0.8 %; Hematocrit 26.3 % (35.3-44.9); Hemoglobin 8.5 g/dL (11.5-15.4); Immature Granulocytes % 0.8 % (0-4); Lymphocytes # 1.2 K/mcL (0.6-4.6); Lymphocytes % 16.6 %; Mean Corpuscular HGB Conc 32.3 g/dL (31.6-35.5); Mean Corpuscular Hemoglobin 29.4 pg (28.0-33.3); Mean Platelet Volume 10.5 fL (9.4-12.4); Monocytes # 0.7 K/mcL (0.0-1.3); Monocytes % 10.1 %; Neutrophils # 5.2 K/mcL (1.6-8.9); Platelet Count 111 K/mcL (140-400); Red Blood Count 2.89 M/mcL (3.82-4.97); Red Cell Distribution Width 14.2 % (11.5-14.5); Segmented Neutrophils % 71.6 %; White Blood Count 7.3 K/mcL (4.3-11.1)
[2020-07-26 20:05] LABS: INR 1.1; Prothrombin Time 12.2 Seconds (9.4-12.1)
[2020-07-26 20:07] LABS: Activated Partial Thrombo Time 27.6 Seconds (26.0-36.0)
[2020-07-26 20:20] LABS: Alanine Aminotransferase 16 Units/L (7-52); Albumin 3.8 g/dL (3.5-5.7); Albumin/Globulin Ratio 1.8 (1.1-2.2); Alkaline Phosphatase 51 Units/L (34-104); Aspartate Amino Transferase 11 Units/L (13-39); BUN/Creatinine Ratio 4 (6-26); Bilirubin,Total 0.3 mg/dL (0.3-1.0); Blood Urea Nitrogen 57 mg/dL (6-20); Calcium 8.4 mg/dL (8.6-10.3); Carbon Dioxide 22 mEq/L (23-29); Chloride 91 mEq/L (98-107); Globulin 2.1 g/dL (2.4-3.5); Glucose 87 mg/dL (70-105); Osmolality,Calculated 287 (280-300); Potassium 3.6 mEq/L (3.5-5.1); Sodium 131 mEq/L (136-145); Total Protein 5.9 g/dL (6.4-8.9); Troponin I < 0.03 ng/mL (< 0.04); eGFR For African Americans 4 (> 60); eGFR For Non-African Americans 3 (> 60)
[2020-07-26 21:12] LABS: Bacteria,Urine Few per hpf (None-Few); Bilirubin,Urine Negative (Negative); Blood,Urine Small (Negative); Clarity,Urine Turbid (Clear); Color,Urine Yellow (Yellow); Glucose,Urine (UA) 100 mg/dL (Normal); Ketones,Urine Negative (Negative); Leukocyte Esterase,Urine Large (Negative); Mucus,Urine Few per lpf (None-Few); Nitrite,Urine Negative (Negative); PH,Urine 6.5 pH Units (5.0-8.0); Protein,Urine >=600 mg/dL (Neg-Trace); Specific Gravity,Urine > 1.030 (1.010-1.025); Squamous Epithelial Cell,Urine Moderate per hpf (None-Few); Transitional Epi Cells,Urine Few per hpf (None-Few); Urobilinogen,Urine Normal (Normal); WBC,Urine TNTC per hpf (0-3)
[2020-07-26] MEDS ORDERED: *HR* OxyCODONE/APAP 5/325 TABLET PO ONE (21:18)
[2020-07-26] MEDS ORDERED: Naloxone 0.4 MG/ML INJ IVP PRN (22:45)
[2020-07-27] MEDS ORDERED: Ketorolac 15 MG/ML VIAL IVP PRN (01:02)
[2020-07-27] MEDS ORDERED: Furosemide 40 MG TABLET PO PRN (02:46)
[2020-07-27] MEDS ORDERED: Colchicine 0.6 MG TABLET PO ONE (03:45)
[2020-07-27] MEDS ORDERED: Ertapenem 1,000 MG in 0.9 % Sodium Chloride Mini Bag 100 ML IVPB SCH (04:00)
[2020-07-27] MEDS ORDERED: Perflutren Lipid Microsphere 1.3 ML in 0.9 % Sodium Chloride 8.7 ML IVP PRN (04:19)
[2020-07-27] MEDS: Aspirin 325 MG TABLET PO SCH ×2 (04:26→08:13)
[2020-07-27 06:55] LABS: Albumin 3.2 g/dL (3.5-5.7); Albumin/Globulin Ratio 1.6 (1.1-2.2); Bilirubin,Total 0.3 mg/dL (0.3-1.0); Calcium 8.1 mg/dL (8.6-10.3); Hemoglobin 7.1 g/dL (11.5-15.4); Magnesium 2.1 mg/dL (1.6-2.6); Potassium 3.7 mEq/L (3.5-5.1); Red Cell Distribution Width 14.1 % (11.5-14.5); Total Protein 5.2 g/dL (6.4-8.9)
[2020-07-27 06:56] LABS: Hematocrit 22.2 % (35.3-44.9); Immature Platelets 2.8 % (1.1-6.1); Mean Corpuscular Hemoglobin 29.6 pg (28.0-33.3); Mean Corpuscular Volume 92.5 fL (83.0-100.0); Mean Platelet Volume 10.9 fL (9.4-12.4); Red Blood Count 2.4 M/mcL (3.82-4.97); White Blood Count 5.5 K/mcL (4.3-11.1)
[2020-07-27 06:57] LABS: Immature Reticulocyte % 11.5 % (11.0-38.0); Retculocyte # 0.03 M/mcL (0.05-0.10); Reticulocyte % 1.5 % (1.6-2.8)
[2020-07-27 07:11] LABS: Folate 19.7 ng/mL (3.0-16.0)
[2020-07-27 07:20] LABS: % Iron Saturation 48 % (15-50); Iron 94 mcg/dL (50-170); Transferrin 139 mg/dL (203-362)
[2020-07-27 07:31] LABS: Ferritin 1033 ng/mL (10-120)
[2020-07-27] MEDS: predniSONE 5 MG TABLET PO SCH (08:13)
[2020-07-27] MEDS: Ascorbic Acid 500 MG TABLET PO SCH ×2 (08:13→20:02)
[2020-07-27] MEDS: allopurinoL 100 MG TABLET PO SCH (08:13)
[2020-07-27] MEDS: Renal Vitamin 1 CAP CAPSULE PO SCH (08:13)
[2020-07-27] MEDS: Mycophenolate Sodium (DR) 180 MG TABLET.DR PO SCH ×2 (08:13→20:03)
[2020-07-27] MEDS: Magnesium Oxide 400 MG TABLET PO SCH (08:13)
[2020-07-27] MEDS: Gentamicin Oint 15 GM TUBE TP SCH (08:22)
[2020-07-27 11:41] LABS: Hepatitis B Surface Antibody < 3.10 mIU/mL
[2020-07-27 11:52] LABS: Hepatitis B Surface Antigen Nonreactive (Nonreactive)
[2020-07-27] MEDS: Aspirin 81 MG TAB.CHEW PO SCH ×2 (14:34→20:02)
[2020-07-27 16:19] LABS: Adenovirus Not Detected (Not Detect); Bordetella Pertussis Not Detected (Not Detect); Chlamydophila pneumoniae Not Detected (Not Detect); Coronavirus 229E Not Detected (Not Detect); Coronavirus HKU1 Not Detected (Not Detect); Coronavirus NL63 Not Detected (Not Detect); Coronavirus OC43 Not Detected (Not Detect); Human Metapneumovirus Not Detected (Not Detect); Human Rhinovirus/Enterovirus Not Detected (Not Detect); Influenza A Subtype 2009 H1 Not Detected (Not Detect); Influenza B Not Detected (Not Detect); Mycoplasma pneumoniae Not Detected (Not Detect); Parainfluenza Virus 1 Not Detected (Not Detect); Parainfluenza Virus 2 Not Detected (Not Detect); Parainfluenza Virus 3 Not Detected (Not Detect); Parainfluenza Virus 4 Not Detected (Not Detect); Respiratory Syncytial Virus Not Detected (Not Detect); SARS-CoV-2 Not Detected (Not Detect)
[2020-07-27 16:47] LABS: Hematocrit 23.9 % (35.3-44.9); Hemoglobin 7.8 g/dL (11.5-15.4)
[2020-07-27] MEDS ORDERED: Perit. Dialysis with Dex 2.5 % 12,000 ML PERITONEAL ONE (19:00)
[2020-07-27] MEDS: Sennosides/Docusate Sodium TABLET PO SCH (21:00)
[2020-07-27] MEDS ORDERED: Aspirin Enteric Coated 325 MG Tablet PO SCH (21:00)
[2020-07-28 02:24] LABS: Hemoglobin 6.9 g/dL (11.5-15.4); Red Cell Distribution Width 13.8 % (11.5-14.5)
[2020-07-28 02:25] LABS: Immature Platelets 2.8 % (1.1-6.1); Mean Corpuscular HGB Conc 32.9 g/dL (31.6-35.5); Mean Corpuscular Hemoglobin 29.5 pg (28.0-33.3); Mean Corpuscular Volume 89.7 fL (83.0-100.0); Mean Platelet Volume 10.9 fL (9.4-12.4); Red Blood Count 2.34 M/mcL (3.82-4.97); White Blood Count 4.2 K/mcL (4.3-11.1)
[2020-07-28 02:43] LABS: Potassium 3.4 mEq/L (3.5-5.1)
[2020-07-28] MEDS ORDERED: calcitrioL 0.25 MCG CAPSULE PO SCH (02:46)
[2020-07-28] MEDS: Sennosides/Docusate Sodium TABLET PO SCH (07:39)
[2020-07-28] MEDS: Renal Vitamin 1 CAP CAPSULE PO SCH (07:39)
[2020-07-28] MEDS: Aspirin 81 MG TAB.CHEW PO SCH ×2 (07:40→14:13)
[2020-07-28] MEDS: allopurinoL 100 MG TABLET PO SCH (07:40)
[2020-07-28] MEDS: Magnesium Oxide 400 MG TABLET PO SCH (07:40)
[2020-07-28] MEDS: Mycophenolate Sodium (DR) 180 MG TABLET.DR PO SCH (07:40)
[2020-07-28] MEDS: Gentamicin Oint 15 GM TUBE TP SCH (07:40)
[2020-07-28] MEDS: Ascorbic Acid 500 MG TABLET PO SCH (07:40)
[2020-07-28] MEDS: predniSONE 5 MG TABLET PO SCH (07:40)
[2020-07-28] MEDS ORDERED: 0.9 % Sodium Chloride 250 ML IVC SCH (08:15)
[2020-07-28] MEDS ORDERED: Gabapentin 100 MG CAPSULE PO SCH (09:00)
[2020-07-28] MEDS ORDERED: Ondansetron 4 MG/2 ML VIAL IVP PRN (12:25)
[2020-07-28 15:09] VITALS: BP 156/99
[2020-07-28 16:22] LABS: Hematocrit 25.7 % (35.3-44.9); Hemoglobin 8.3 g/dL (11.5-15.4)
[2020-07-28] MEDS ORDERED: Perit. Dialysis with Dex 2.5 % 12,000 ML PERITONEAL ONE (19:00)
[2020-07-29] MEDS ORDERED: cefTRIAXone 1,000 MG in Water for inj. (sterile) 10 ML IVP SCH (09:00)
== END 2020-07-28 18:09 | disposition short-term general hospital (02) ==
LOC: CDU 17:44 → EMEROOARM 17:44 → SUATTDRO 22:26 → 2ANU 22:28
PROVIDERS: ADMIT Internal Medicine; ATTEND Internal Medicine